=== PATIENT | female | born 1935 | race Two or more races ===

== ENCOUNTER 2016-05-30 11:08 | Inpatient (IN) | payer MEDICARE, MEDICAID ==
[2016-05-30] MEDS ORDERED: ceFAZolin 1 GM in Sodium Chloride 0.9% 50 ML IV ONE (11:38)
--- NOTE | 2016-05-30 11:43 | ED Physician Chart ---
Chief Complaint/HPI - Patient Information Date Seen:: 05/30/16 Time Seen:: 11:38 Chief Complaint:: l face rash History of Present Illness:: pt has had redness and swelling at left side of face for some time. no fever. no KU. pt distraught by of her 2 sons in past few months since 02/07. she was to an etohic in past but denies substance hx for self. Allergies:: Allergies Allergy/AdvReac Type Severity Reaction Status Date / Time No Known Allergies Allergy Verified 05/30/16 11:16 Vitals:: Vital Signs - 8 hr 05/30/16 11:08 Temp 99.5 F HR 74 RR 16 BP 96/70 O2 Sat % 95 Historian:: Patient Review of Systems - Review of Systems General/Constitutional: No fever, No chills, No weight loss, No weakness, No diaphoresis, No edema, No loss of appetite Skin: No skin lesions, No rash, No bruising Head: No headache, No light-headedness Eyes: No loss of vision, No pain, No diplopia ENT: No earache, No nasal drainage, No sore throat, No tinnitus Neck: No neck pain, No swelling, No thyromegaly, No stiffness, No mass noted Cardio Vascular: No chest pain, No palpitations, No PND, No orthopnea, No edema Pulmonary: No SOB, No cough, No sputum, No wheezing GI: No nausea, No vomiting, No diarrhea, No pain, No melena, No hematochezia, No constipation, No hematemesis G/U: No dysuria, No frequency, No hematuria Musculoskeletal: No bone or joint pain, No back pain, No muscle pain Endocrine: No polyuria, No polydipsia Psychiatric: No prior psych history, No depression, No anxiety, No suicidal ideation Hematopoietic: No bruising, No lymphadenopathy Allergic/Immuno: No urticaria, No angioedema Neurological: No syncope, No focal symptoms, No weakness, No paresthesia, No headache, No seizure, No dizziness, No confusion, No vertigo Past Medical History - Past Medical History Past Medical History: HTN, Dyslipidemia, PUD/GERD Social History: Care Facility Psychiatricy History: Depression, Other (gen anxiety do,) Family Medical History - Family Member Mother History Unknown: Yes Physical Exam - Physical Examination General/Constitutional: Awake, Well-developed, well-nourished, Alert, No distress, GCS 15, Non-toxic appearing, Ambulatory Other Gen/Cons comments:: morbid obese w signs of depression related to recent events. not very helpful w history or cooperative for PE. left face is mildly red and slt warm. no tndr to touch. small scab behind left ear and also by lat l eyebrow. Head: Atraumatic Eyes: Lids, conjuctiva normal, PERRL, EOMI Skin: Nl inspection, No skin lesions, No ecchymosis, Well hydrated, No lymphadenopathy Other Skin comments:: left face is mildly red and slt warm. no tndr to touch. small scab behind left ear and also by lat l eyebrow. ENMT: External ears, nose nl, Nasal exam nl, Lips, teeth, gums nl Neck: Nontender, Full ROM w/o pain, No JVD, No nuchal rigidity, No bruit, No mass, No stridor Respiratory: Nl effort/Exclusion, Clear to Auscultation, No Wheeze/Rhonchi/Rales Cardio Vascular: RRR, No murmur, gallop, rubs, NL S1 S2 GI: No tenderness/rebounding/guarding, No organomegaly, No hernia, Normal BS's, Nondistended, No mass/bruits, No McBurney tenderness : No CVA tenderness Extremities: No tenderness or effusion, Full ROM, normal strength in all extremities, No edema, Normal digits & nails Neuro/Psych: Alert/oriented, DTR's symmetric, Normal sensory exam, Normal motor strength, Judgement/insight normal, Mood normal, Normal gait, No focal deficits Misc: normal gait, Normal back, No paraspinal tenderness Labs/Radiology/EKG Results - Lab Results Results: Laboratory Tests 05/30/16 05/30/16 05/30/16 12:00 12:00 12:00 WBC 13.4 H RBC 3.46 L Hgb 9.6 L Hct 29.5 L MCV 85.2 MCH 27.8 MCHC Differential 32.7 RDW 13.3 Plt Count 207 MPV 9.3 Neutrophils % 80.2 H Lymphocytes % 11.5 L Monocytes % 5.8 Eosinophils % 2.2 Basophils % 0.3 ESR 99 H Sodium 133 L Potassium 4.1 Chloride 95 L Carbon Dioxide 34.0 H Anion Gap 8.1 BUN 11 Creatinine 0.5 L Est GFR ( Amer) TNP Est GFR (Non-Af Amer) TNP BUN/Creatinine Ratio 22.0 Glucose 104 Whole Bld Lactic Acid 0.83 Calcium 9.0 Total Bilirubin 0.3 AST 10 L ALT 4 L Alkaline Phosphatase 92 Total Protein 6.3 Albumin 3.1 L Globulin 3.2 Albumin/Globulin Ratio 1.0 - Radiology Results Results: ct head nad ct face - swelling/edema and pos reactive nodes at left face. no abscess. ED Septic Shock - . Is Septic Shock (SBP<90, OR Lactate>4 mmol\L) present?: No - <6hrs of presentation: Vital Signs: Vital Signs - 8 hr 05/30/16 11:08 Temp 99.5 F HR 74 RR 16 BP 96/70 O2 Sat % 95 Reassessment (Disposition) - Reassessment Reassessment:: re-eval pt stable at 2;15pm. bing tipton who is admitting for abx and observation and ?steroids prn Reassessment Condition:: Unchanged - Diagnosis Diagnosis:: left facial redness ( cellulitis vs allergic rxn ) - Aftercare/Follow up Instructions Aftercare/Follow-Up Instructions:: Counseled pt regarding lab results/diagnosis & need follow up - Patient Disposition Admitted to:: Med/Surg Condition at Disposition:: Unchanged
[2016-05-30 12:13] LABS: % BASOPHILS 0.3 % (0.0-2.0); % EOSINOPHILS 2.2 % (0.0-5.0); % LYMPHOCYTES 11.5 % (20.0-50.0); % MONOCYTES 5.8 % (2.0-10.0); % NEUTROPHILS 80.2 % (40.0-80.0); HEMATOCRIT 29.5 % (35.0-45.0); HEMOGLOBIN 9.6 gm/dL (11.7-16.1); MEAN CELL VOLUME 85.2 fl (81-100); MEAN CORPUSCULAR HEMOGLOBIN 27.8 pg (27.0-31.0); MEAN CORPUSCULAR HGB CONC 32.7 pg (28.0-36.0); MEAN PLATELET VOLUME 9.3 fl; NEUTROPHILE ABSOLUTE 10.8 Th/cmm (1.8-8.0); PLATELET COUNT 207 Th/cmm (150-400); RED BLOOD COUNT 3.46 Mil/cmm (3.80-5.20); RED CELL DISTRIBUTION WIDTH 13.3 % (11.5-20.0)
[2016-05-30 12:23] LABS: WHITE BLOOD COUNT 13.4 Th/cmm (4.8-10.8)
[2016-05-30 12:31] LABS: ALKALINE PHOSPHATASE 92 U/L (34-104); ANION GAP 8.1 (7.0-16.0); BILIRUBIN,TOTAL 0.3 mg/dL (0.3-1.0); BUN - UREA NITROGEN 11 mg/dL (7-25); CHLORIDE 95 mEq/L (98-107); CREATININE - SERUM 0.5 mg/dL (0.6-1.2); GLUCOSE 104 mg/dL (70-105); POTASSIUM SERUM 4.1 mEq/L (3.5-5.1); SGOT 10 U/L (13-39); SGPT/ALT 4 U/L (7-52); SODIUM SERUM 133 mEq/L (136-145)
--- NOTE | 2016-05-30 13:31 | Diagnostic Imaging Report ---
Head CT without intravenous contrast Indication: Left facial redness Comparison: CT facial bones the same day Technique: Axial images were obtained from the vertex to the skull base without IV contrast. Coronal reconstructions were made. Total DLP: 792, CTDI40.5 FINDINGS: Images of the brain obtained without contrast demonstrate no evidence of an acute hemorrhage. Mild atrophy is noted. The castillo-white matter differentiation is preserved. The ventricles and basal cisterns are patent. No mass effect or midline shift. No evidence of skull fracture or focal soft tissue swelling. There is mucosal thickening of the paranasal sinuses. IMPRESSION: No acute intracranial abnormality. Mild atrophy.
--- NOTE | 2016-05-30 13:57 | Diagnostic Imaging Report ---
CT facial bones without IV contrast HISTORY: Left-sided facial redness and swelling COMPARISON: CT head without IV contrast Technique: Axial images of the facial bones were obtained without IV contrast. Reconstructions were made. total DLP: 7011, CTDI34.5 Findings: There is mucosal thickening of the paranasal sinuses. There are inflammatory changes and subcutaneous edema with few borderline prominent lymph nodes seen along the left zygomatic and left temporal region. No drainable fluid collection identified. Degenerative changes of the cervical spine and bilateral TMJ joints are noted. There may have been previous nasal fractures. The globes and orbital floors are intact. IMPRESSION: Diffuse inflammatory changes surrounding the left facial region with subcutaneous edema. Please correlate clinically for possible facial cellulitis. No evidence of a drainable fluid collection. Borderline prominent left facial lymph nodes, nonspecific and possibly reactive. Questionable previous age indeterminate nasal fractures.
[2016-05-30 16:28] VITALS: BP 96/70
[2016-05-30] MEDS ORDERED: OXYCODONE 10 MG PO PRN (18:22)
[2016-05-30] MEDS ORDERED: Pneumococcal Vaccine 0.5 mL Vial IM ONE (19:59)
[2016-05-30] MEDS ORDERED: Non-Formulary Item 1 EA (Atorvastatin Calcium [Lipitor] 20 MG) PO SCH (21:00)
[2016-05-30] MEDS: cefTRIAXone 1 GM in Sodium Chloride 0.9% 50 ML IV SCH (21:16)
--- NOTE | 2016-05-30 21:36 | Admit Criteria Form ---
Admit Criteria Forms - Admit Criteria Diagnosis: CELLULITIS Clinical Indications for Admission to Inpatient Care (Place 'X' for any and all applicable criteria): Admission is indicated for ANY ONE of the following(1)(2)(3)(4)(5): [ ]I. Limb-threatening infection [ ]II. High-risk comorbid condition as indicated by ANY ONE of the following: [ ]a) Uncontrolled diabetes (eg, HbA1c greater than 10% (0.1)) [ ]b) Cirrhosis [ ]c) Neutropenia [ ]d) Asplenia [ ]e) Immunosuppression [ ]f) Symptomatic heart failure [ ]III. Failure of outpatient therapy as indicated by ALL of the following: [ ]a) Progression or no improvement after adequate trial (minimum of 48 hours, with longer period for stable lower extremity infection) [ ]b) Adequate antibiotic regimen as indicated by use of ANY ONE of the following: [ ]i) First-generation cephalosporin (e.g., cephalexin) [ ]ii) Antistaphylococcal penicillin (e.g., dicloxacillin) [ ]iii) Penicillin-allergic patient regimen (clindamycin, extended-spectrum fluoroquinolone, or doxycycline) [ ]iv) Resistant organism (eg, methicillin-resistant Staphylococcus aureus) regimen (6) [ ]c) Outpatient intravenous therapy regimen is not appropriate due to ANY ONE of the following. (7)(8)(9)(10): [ ]i) It was tried and was not successful (eg, progression of infection). [ ]ii) It is not available or cannot be arranged in a clinically appropriate time frame (e.g., the next day). [ ]iii) Clinical presentation (eg, acuity of infection, rapidity of progression, confirmed or suspected bacteremia) is judged to require ALL of the following: [ ]1) Immediate initiation of intravenous therapy ( eg, cannot wait for next day) [ ]2) Intensity of patient monitoring and observation (eg, vital sign measurement, checks for infection progression) that cannot be provided at other than inpatient level of care [ ]IV. Mental status changes [ ]V. Bacteremia [ ]. Hemodynamic instability [ ]VII. Suspected necrotizing soft tissue infection (e.g., gas in tissue)(11)( 12) [ ]VIII. Orbital infection (13)(14) [ ]IX. Associated surgical procedure (e.g., abscess drainage, debridement) not amenable to outpatient, emergency department, or observation care [ ]X. Cutaneous gangrene [ ]XI. High fever (temperature greater than 39.5 degrees C (103.1 degrees F) (oral)) not responsive to outpatient, emergency department, or observation care therapy [X]XIII. Inpatient admission required rather than observation care (Also use Cellulitis: Observation Care as appropriate) because of ANY ONE of the following : [ ]a) Periorbital or perineal infection that is severe or worsening [ ]b) Severe pain requiring acute inpatient management [ ]c) IV fluid to replace significant ongoing (e.g., for over 24 hours) losses (greater than 3L/m2 per day) [ ]d) Compartment syndrome monitoring (17) [ ]e) Strict or protective (eg, laminar flow) isolation [ ]f) Urgent debridement or skin grafting [ ]g) Bone or joint debridement [ ]h) Immediate inpatient surgery [X]i) Other condition, treatment or monitoring requiring inpatient admission Extended stay beyond goal length of stay may be needed for (1)(18): [ ]a) Necrotizing soft tissue infection or fasciitis [ ]b) Gram-negative infection [ ]c) Methicillin-resistant Staphylococcal aureus (MRSA) infection [ ]d) Peripheral venous insufficiency with cellulitis [ ]e) Extensive edema [ ]f) Sepsis or continued Hemodynamic instability [ ]g) Continued high fever or mental status change [ ]h) Bacteremia [ ]i) Active serious comorbid conditions ( eg, heart failure, renal insufficiency) The original [facility] [employer] content created by [facility] [employer] has been revised. The portions of the content which have been revised are identified through the use of italic text or in bold, and [facility] has neither reviewed nor approved the modified material. All other unmodified content is copyright [facility] Please see references footnoted in the original [facility] edition 2016 Admit Criteria Met?: Yes
[2016-05-30] MEDS: Albuterol/Ipratropium Neb 3 ML AERS HHN SCH (23:39)
[2016-05-31] MEDS: Albuterol/Ipratropium Neb 3 ML AERS HHN SCH ×6 (03:20→23:25)
[2016-05-31 06:07] LABS: % BASOPHILS 0.3 % (0.0-2.0); % EOSINOPHILS 0.1 % (0.0-5.0); % LYMPHOCYTES 12.6 % (20.0-50.0); % MONOCYTES 3.8 % (2.0-10.0); % NEUTROPHILS 83.2 % (40.0-80.0); HEMATOCRIT 29.5 % (35.0-45.0); HEMOGLOBIN 9.7 gm/dL (11.7-16.1); MEAN CELL VOLUME 84.8 fl (81-100); MEAN PLATELET VOLUME 9.9 fl; NEUTROPHILE ABSOLUTE 7.8 Th/cmm (1.8-8.0); PLATELET COUNT 209 Th/cmm (150-400); RED BLOOD COUNT 3.48 Mil/cmm (3.80-5.20); RED CELL DISTRIBUTION WIDTH 13.2 % (11.5-20.0)
[2016-05-31 06:14] LABS: WHITE BLOOD COUNT 9.4 Th/cmm (4.8-10.8)
[2016-05-31 06:50] LABS: ALKALINE PHOSPHATASE 87 U/L (34-104); ANION GAP 8.1 (7.0-16.0); BILIRUBIN,TOTAL 0.2 mg/dL (0.3-1.0); BUN - UREA NITROGEN 15 mg/dL (7-25); BUN/CREATININE RATIO 37.5; CARBON DIOXIDE 34.8 mEq/L (21.0-31.0); CHLORIDE 98 mEq/L (98-107); CREATININE - SERUM 0.4 mg/dL (0.6-1.2); GLUCOSE 137 mg/dL (70-105); POTASSIUM SERUM 3.9 mEq/L (3.5-5.1); SGOT 8 U/L (13-39); SGPT/ALT 5 U/L (7-52); SODIUM SERUM 137 mEq/L (136-145)
[2016-05-31] MEDS ORDERED: FAMOTIDINE 40 MG PO SCH (09:00)
--- NOTE | 2016-05-31 09:29 | General Progress Note ---
Subjective - Review of Systems Service Date: 05/31/16 Subjective: I am suffering Objective - Results Result Diagrams: 05/31/16 05:15 05/31/16 05:15 Recent Labs: Laboratory Last Values WBC 9.4 Th/cmm (4.8-10.8) D 05/31/16 05:15 RBC 3.48 Mil/cmm (3.80-5.20) L 05/31/16 05:15 Hgb 9.7 gm/dL (11.7-16.1) L 05/31/16 05:15 Hct 29.5 % (35.0-45.0) L 05/31/16 05:15 MCV 84.8 fl (81-100) 05/31/16 05:15 MCH 28.0 pg (27.0-31.0) 05/31/16 05:15 MCHC Differential 33.0 pg (28.0-36.0) 05/31/16 05:15 RDW 13.2 % (11.5-20.0) 05/31/16 05:15 Plt Count 209 Th/cmm (150-400) 05/31/16 05:15 MPV 9.9 fl 05/31/16 05:15 Neutrophils % 83.2 % (40.0-80.0) H 05/31/16 05:15 Lymphocytes % 12.6 % (20.0-50.0) L 05/31/16 05:15 Monocytes % 3.8 % (2.0-10.0) 05/31/16 05:15 Eosinophils % 0.1 % (0.0-5.0) 05/31/16 05:15 Basophils % 0.3 % (0.0-2.0) 05/31/16 05:15 ESR 99 mm/hr (0-30) H 05/30/16 12:00 Sodium 137 mEq/L (136-145) 05/31/16 05:15 Potassium 3.9 mEq/L (3.5-5.1) 05/31/16 05:15 Chloride 98 mEq/L (98-107) 05/31/16 05:15 Carbon Dioxide 34.8 mEq/L (21.0-31.0) H 05/31/16 05:15 Anion Gap 8.1 (7.0-16.0) 05/31/16 05:15 BUN 15 mg/dL (7-25) 05/31/16 05:15 Creatinine 0.4 mg/dL (0.6-1.2) L 05/31/16 05:15 Est GFR ( Amer) TNP 05/31/16 05:15 Est GFR (Non-Af Amer) TNP 05/31/16 05:15 BUN/Creatinine Ratio 37.5 05/31/16 05:15 Glucose 137 mg/dL (70-105) H 05/31/16 05:15 Whole Bld Lactic Acid 0.83 mmol/L (0.60-1.99) 05/30/16 12:00 Calcium 9.0 mg/dL (8.6-10.3) 05/31/16 05:15 Total Bilirubin 0.2 mg/dL (0.3-1.0) L 05/31/16 05:15 AST 8 U/L (13-39) L 05/31/16 05:15 ALT 5 U/L (7-52) L 05/31/16 05:15 Alkaline Phosphatase 87 U/L (34-104) 05/31/16 05:15 Total Protein 6.1 gm/dL (6.0-8.3) 05/31/16 05:15 Albumin 3.0 gm/dL (3.7-5.3) L 05/31/16 05:15 Globulin 3.1 gm/dL 05/31/16 05:15 Albumin/Globulin Ratio 1.0 (1.0-1.8) 05/31/16 05:15 TSH 0.17 uIU/ml (0.34-5.60) L 05/31/16 05:15 - Physical Exam Vitals and I&O: Vital Signs Temp 97.8 F 05/31/16 04:00 Pulse 66 05/31/16 07:10 Resp 18 05/31/16 07:10 BP 101/62 05/31/16 00:00 Pulse Ox 96 05/31/16 07:10 Intake & Output 05/30/16 05/31/16 05/31/16 18:59 06:59 18:59 Intake Total 50 Balance 50 Intake: Intake, IV Amount 50 cefTRIAXone 1 gm In 50 Sodium Chloride 0.9% 50 ml @ 100 mls/hr IV Q24HR [facility] Rx#:[id number] Active Medications: Current Medications Acetaminophen (Tylenol) 650 mg PO Q8H [facility] Stop: 07/30/16 09:29 Acyclovir (Zovirax) 800 mg PO Q8HR [facility] Stop: 07/30/16 12:59 Albuterol/Ipratropium (Duoneb Neb) 3 ml HHN Q4HR [facility] Stop: 07/29/16 19:59 Last Admin: 05/31/16 07:10 Dose: 3 ml Aspirin (Aspirin Chewable) 81 mg PO DAILY [facility] Stop: 07/30/16 08:59 Bisacodyl (Dulcolax 10 Mg Supp) 10 mg RC DAILY PRN PRN Reason: no bm x3 days Stop: 07/29/16 18:21 Carvedilol (Coreg) 3.125 mg PO BID [facility] Stop: 07/30/16 08:59 Clotrimazole (Lotrimin 1% Cream) 1 appl TP DAILY [facility] Stop: 07/30/16 09:29 Docusate Sodium (Colace) 250 mg PO BID [facility] Stop: 07/30/16 08:59 Escitalopram Oxalate (Lexapro) 20 mg PO HS [facility] PRN Reason: Protocol Stop: 07/29/16 20:59 Fentanyl (Duragesic 75 Mcg/Hr Tdm Patch) 1 patch TD Q72HR [facility] PRN Reason: Protocol Stop: 07/30/16 18:29 Furosemide (Lasix) 20 mg PO BID [facility] Stop: 07/30/16 08:59 Gabapentin (Neurontin) 300 mg PO BID [facility] Stop: 07/30/16 08:59 Ceftriaxone Sodium 1 gm/ (Sodium Chloride) 50 mls @ 100 mls/hr IV Q24HR [facility] Stop: 07/29/16 18:29 Last Infusion: 05/30/16 21:46 Dose: Infused Lorazepam (Ativan) 0.5 mg PO BID PRN; Protocol PRN Reason: Anxiety Stop: 07/29/16 18:21 Miscellaneous (Atorvastatin Calcium [Lipitor]) 20 mg PO HS [facility] Stop: 07/29/16 20:59 Miscellaneous (Famotidine [Pepcid*]) 40 mg PO DAILY [facility] Stop: 07/30/16 08:59 Miscellaneous (Oxycodone Er [Oxycontin*]) 10 mg PO Q12H PRN PRN Reason: Severe Pain Zolpidem Tartrate (Ambien) 5 mg PO HS PRN PRN Reason: Insomnia Stop: 07/29/16 18:21 Last Admin: 05/30/16 21:31 Dose: 5 mg General: Alert, Oriented x3, No acute distress HEENT: Atraumatic Neck: Supple Cardiovascular: Regular rate Abdomen: Bowel sounds, Soft Extremities: Other (No edema) Neurological: Other (Non ambulatory) Skin: Other (There is some redness in left side of bed and some papulas) Psych/Mental Status: Mental status NL Assessment/Plan - Assessment Assessment: Patient is awake, alert, calm. Dx: Cellulitis, Morbid obesity, COPD, Bed bound , Depression. - Plan Plan: Patient in Ceftriaxone, acyclovir and diet low in Na. Will continue to monitor
[2016-05-31] MEDS: Aspirin 81mg Chewable Tab PO SCH (09:50)
--- NOTE | 2016-05-31 13:25 | History & Physical ---
CHIEF COMPLAINT: Redness of the left side of the face. HISTORY OF PRESENT ILLNESS: This is a case of an 80-year-old white female who I follow in the skilled nursing. I received a call from skilled nursing and stated that the patient had redness on the left side of the face, reason why I ordered to transfer the patient to Emergency Room for evaluation was given. During examination in ER, it was found elevated WBC, reason why the patient was admitted. PAST MEDICAL HISTORY: The patient has past medical history of hypertension, dyslipidemia, GERD, morbid obesity, not ambulatory and depression. FAMILY HISTORY: Unremarkable. ALLERGIES: No known allergies. PAST SURGICAL HISTORY: None. REVIEW OF SYSTEMS: LUNGS: The patient denies shortness of breath. HEART: The patient denies chest pain. ABDOMEN: Unremarkable. EXTREMITIES: The patient is not ambulatory. SKIN: The patient referred edema of the left side of the family. PHYSICAL EXAMINATION: GENERAL: Does reveals a fairly nourished and developed white female, awake, alert, in no acute distress with morbid obesity. LUNGS: Bilateral air entry. No wheezing or crackles. HEART: Regular rate and rhythm. ABDOMEN: Globular. Bowel sound is present. EXTREMITIES: No edema. The patient is not ambulatory. NEUROLOGICAL: The patient is awake, alert, ____ depressed. No neurological deficits at this moment. SKIN: There is redness of the left side of the face and some edema. IMPRESSION: 1. Cellulitis. 2. Morbid obesity. 3. Hypertension. 4. Dyslipidemia. 5. Gastroesophageal reflux disease. 6. Depression. PLAN: 1. The patient will be admitted in the medical surgical floor. 2. IV normal saline. 3. Ceftriaxone. 4. Continue with skilled nursing medications. 5. DIET: Low in sodium. 6. CBC, CMP at a.m. JOB# [id number]
[2016-05-31] MEDS ORDERED: fentaNYL 75 mcg/hr Tdm Patch TD SCH (18:30)
[2016-05-31] MEDS: cefTRIAXone 1 GM in Sodium Chloride 0.9% 50 ML IV SCH (19:45)
[2016-06-01] MEDS: Albuterol/Ipratropium Neb 3 ML AERS HHN SCH ×6 (03:30→23:08)
[2016-06-01] MEDS: Aspirin 81mg Chewable Tab PO SCH (08:39)
--- NOTE | 2016-06-01 08:47 | General Progress Note ---
Subjective - Review of Systems Service Date: 06/01/16 Subjective: I fell better Objective - Results Result Diagrams: 05/31/16 05:15 05/31/16 05:15 Recent Labs: Laboratory Last Values WBC 9.4 Th/cmm (4.8-10.8) D 05/31/16 05:15 RBC 3.48 Mil/cmm (3.80-5.20) L 05/31/16 05:15 Hgb 9.7 gm/dL (11.7-16.1) L 05/31/16 05:15 Hct 29.5 % (35.0-45.0) L 05/31/16 05:15 MCV 84.8 fl (81-100) 05/31/16 05:15 MCH 28.0 pg (27.0-31.0) 05/31/16 05:15 MCHC Differential 33.0 pg (28.0-36.0) 05/31/16 05:15 RDW 13.2 % (11.5-20.0) 05/31/16 05:15 Plt Count 209 Th/cmm (150-400) 05/31/16 05:15 MPV 9.9 fl 05/31/16 05:15 Neutrophils % 83.2 % (40.0-80.0) H 05/31/16 05:15 Lymphocytes % 12.6 % (20.0-50.0) L 05/31/16 05:15 Monocytes % 3.8 % (2.0-10.0) 05/31/16 05:15 Eosinophils % 0.1 % (0.0-5.0) 05/31/16 05:15 Basophils % 0.3 % (0.0-2.0) 05/31/16 05:15 ESR 99 mm/hr (0-30) H 05/30/16 12:00 Sodium 137 mEq/L (136-145) 05/31/16 05:15 Potassium 3.9 mEq/L (3.5-5.1) 05/31/16 05:15 Chloride 98 mEq/L (98-107) 05/31/16 05:15 Carbon Dioxide 34.8 mEq/L (21.0-31.0) H 05/31/16 05:15 Anion Gap 8.1 (7.0-16.0) 05/31/16 05:15 BUN 15 mg/dL (7-25) 05/31/16 05:15 Creatinine 0.4 mg/dL (0.6-1.2) L 05/31/16 05:15 Est GFR ( Amer) TNP 05/31/16 05:15 Est GFR (Non-Af Amer) TNP 05/31/16 05:15 BUN/Creatinine Ratio 37.5 05/31/16 05:15 Glucose 137 mg/dL (70-105) H 05/31/16 05:15 Whole Bld Lactic Acid 0.83 mmol/L (0.60-1.99) 05/30/16 12:00 Calcium 9.0 mg/dL (8.6-10.3) 05/31/16 05:15 Total Bilirubin 0.2 mg/dL (0.3-1.0) L 05/31/16 05:15 AST 8 U/L (13-39) L 05/31/16 05:15 ALT 5 U/L (7-52) L 05/31/16 05:15 Alkaline Phosphatase 87 U/L (34-104) 05/31/16 05:15 Total Protein 6.1 gm/dL (6.0-8.3) 05/31/16 05:15 Albumin 3.0 gm/dL (3.7-5.3) L 05/31/16 05:15 Globulin 3.1 gm/dL 05/31/16 05:15 Albumin/Globulin Ratio 1.0 (1.0-1.8) 05/31/16 05:15 TSH 0.17 uIU/ml (0.34-5.60) L 05/31/16 05:15 - Physical Exam Vitals and I&O: Vital Signs Temp 98.0 F 06/01/16 04:00 Pulse 80 06/01/16 08:39 Resp 20 06/01/16 04:00 BP 110/51 06/01/16 08:39 Pulse Ox 98 06/01/16 04:00 Intake & Output 05/31/16 06/01/16 06/01/16 18:59 06:59 18:59 Intake Total 500 240 Balance 500 240 Intake: Oral 500 240 Other: # Voids 2 3 # Bowel Movements 2 Active Medications: Current Medications Acetaminophen (Tylenol) 650 mg PO Q8H [facility] Stop: 07/30/16 09:29 Last Admin: 06/01/16 08:38 Dose: 650 mg Acyclovir (Zovirax) 800 mg PO Q8HR [facility] Stop: 07/30/16 12:59 Last Admin: 06/01/16 05:18 Dose: 800 mg Albuterol/Ipratropium (Duoneb Neb) 3 ml HHN Q4HR [facility] Stop: 07/29/16 19:59 Last Admin: 06/01/16 07:08 Dose: 3 ml Aspirin (Aspirin Chewable) 81 mg PO DAILY [facility] Stop: 07/30/16 08:59 Last Admin: 06/01/16 08:39 Dose: 81 mg Bisacodyl (Dulcolax 10 Mg Supp) 10 mg RC DAILY PRN PRN Reason: no bm x3 days Stop: 07/29/16 18:21 Carvedilol (Coreg) 3.125 mg PO BID [facility] Stop: 07/30/16 08:59 Last Admin: 06/01/16 08:39 Dose: 3.125 mg Clotrimazole (Lotrimin 1% Cream) 1 appl TP DAILY [facility] Stop: 07/30/16 09:29 Last Admin: 05/31/16 12:49 Dose: 1 appl Docusate Sodium (Colace) 250 mg PO BID [facility] Stop: 07/30/16 08:59 Last Admin: 06/01/16 08:39 Dose: 250 mg Escitalopram Oxalate (Lexapro) 20 mg PO HS [facility] PRN Reason: Protocol Stop: 07/29/16 20:59 Last Admin: 05/31/16 20:36 Dose: 20 mg Fentanyl (Duragesic 75 Mcg/Hr Tdm Patch) 1 patch TD Q72HR [facility] PRN Reason: Protocol Stop: 07/30/16 18:29 Last Admin: 05/31/16 17:59 Dose: 1 patch Furosemide (Lasix) 20 mg PO BID [facility] Stop: 07/30/16 08:59 Last Admin: 06/01/16 08:38 Dose: 20 mg Gabapentin (Neurontin) 300 mg PO BID [facility] Stop: 07/30/16 08:59 Last Admin: 06/01/16 08:39 Dose: 300 mg Ceftriaxone Sodium 1 gm/ (Sodium Chloride) 50 mls @ 100 mls/hr IV Q24HR [facility] Stop: 07/29/16 18:29 Last Admin: 05/31/16 19:45 Dose: 100 mls/hr Lorazepam (Ativan) 0.5 mg PO BID PRN; Protocol PRN Reason: Anxiety Stop: 07/29/16 18:21 Last Admin: 05/31/16 22:47 Dose: 0.5 mg Miscellaneous (Atorvastatin Calcium [Lipitor]) 20 mg PO HS [facility] Stop: 07/29/16 20:59 Miscellaneous (Famotidine [Pepcid*]) 40 mg PO DAILY [facility] Stop: 07/30/16 08:59 Miscellaneous (Oxycodone Er [Oxycontin*]) 10 mg PO Q12H PRN PRN Reason: Severe Pain Zolpidem Tartrate (Ambien) 5 mg PO HS PRN PRN Reason: Insomnia Stop: 07/29/16 18:21 Last Admin: 05/31/16 20:36 Dose: 5 mg General: Alert, No acute distress HEENT: Atraumatic Neck: Supple Cardiovascular: Regular rate Lungs: Clear to auscultation Abdomen: Bowel sounds, Soft Extremities: Other (No edema) Neurological: Other (Non ambulatory) Skin: Other (Redness of face improving) Psych/Mental Status: Other (Confused) Assessment/Plan - Assessment Assessment: Patient is awake, alert, calm. Dx: Cellulitis, Morbid obesity, COPD, Bed bound , Depression. - Plan Plan: Patient in Ceftriaxone, acyclovir and diet low in Na. Will continue to monitor.
[2016-06-01] MEDS: cefTRIAXone 1 GM in Sodium Chloride 0.9% 50 ML IV SCH (17:44)
[2016-06-02] MEDS: Albuterol/Ipratropium Neb 3 ML AERS HHN SCH ×3 (04:12→12:29)
[2016-06-02 06:50] LABS: % BASOPHILS 0.7 % (0.0-2.0); % EOSINOPHILS 6.2 % (0.0-5.0); % LYMPHOCYTES 27.6 % (20.0-50.0); % MONOCYTES 8.3 % (2.0-10.0); % NEUTROPHILS 57.2 % (40.0-80.0); HEMATOCRIT 29.3 % (35.0-45.0); HEMOGLOBIN 9.4 gm/dL (11.7-16.1); MEAN CELL VOLUME 85.9 fl (81-100); MEAN CORPUSCULAR HEMOGLOBIN 27.6 pg (27.0-31.0); MEAN CORPUSCULAR HGB CONC 32.2 pg (28.0-36.0); MEAN PLATELET VOLUME 8.9 fl; NEUTROPHILE ABSOLUTE 5.5 Th/cmm (1.8-8.0); PLATELET COUNT 233 Th/cmm (150-400); RED BLOOD COUNT 3.41 Mil/cmm (3.80-5.20); RED CELL DISTRIBUTION WIDTH 13.4 % (11.5-20.0); WHITE BLOOD COUNT 9.6 Th/cmm (4.8-10.8)
[2016-06-02 07:08] LABS: ALKALINE PHOSPHATASE 77 U/L (34-104); ANION GAP 4.1 (7.0-16.0); BILIRUBIN,TOTAL 0.2 mg/dL (0.3-1.0); BUN - UREA NITROGEN 11 mg/dL (7-25); BUN/CREATININE RATIO 27.5; CALCIUM SERUM 8.7 mg/dL (8.6-10.3); CARBON DIOXIDE 38.7 mEq/L (21.0-31.0); CHLORIDE 100 mEq/L (98-107); CREATININE - SERUM 0.4 mg/dL (0.6-1.2); GLUCOSE 94 mg/dL (70-105); POTASSIUM SERUM 3.8 mEq/L (3.5-5.1); SGOT 10 U/L (13-39); SGPT/ALT 4 U/L (7-52); SODIUM SERUM 139 mEq/L (136-145)
[2016-06-02] MEDS: Aspirin 81mg Chewable Tab PO SCH (08:52)
--- NOTE | 2016-06-22 23:01 | Discharge Summary ---
CHIEF COMPLAINT: Redness of the left side of the face. HISTORY OF PRESENT ILLNESS: This is the case of an 80-year-old white female, who was sent from [facility] secondary to the patient had redness in the left side of face. She was sent to ER for evaluation and treatment. Diagnosis of cellulitis was done, reason why she was admitted. HOSPITAL COURSE AND TREATMENT: Then this patient was admitted to the Med-Surg. She was started on IV normal saline, ceftriaxone IV. She was continuing [facility] medications. She received a diet low in sodium and laboratory work was done. With this treatment and after 3 days in the hospital, it was considered that the patient received the maximum benefit of hospitalization and she could be sent back to the [facility]. At the moment of the discharge, the patient was awake, alert, in no acute distress with no redness or edema in the face. DISPOSITION: The patient is sent back to the [facility] to continue treatment with PCP. DIAGNOSES: 1. Cellulitis. 2. Morbid obesity. 3. Hypertension. 4. Dyslipidemia. 5. Gastroesophageal reflux disease. 6. Depression. 7. Bedbound. JOB# [id number]
== END 2016-06-02 12:40 | DRG 603 ==
LOC: ER 11:08 → INTOOBSV 14:40 → OBSVTOIN 14:40 → MSI 14:40
PROVIDERS: ADMIT General Practice; ATTEND General Practice
DX: L03.211 Cellulitis of face (principal); Z68.42 Body mass index [BMI] 45.0-49.9, adult; I10 Essential (primary) hypertension; E66.01 Morbid (severe) obesity due to excess calories; K21.9 Gastro-esophageal reflux disease without esophagitis; E78.5 Hyperlipidemia, unspecified; F32.9 Major depressive disorder, single episode, unspecified; F41.1 Generalized anxiety disorder; Z74.01 Bed confinement status
CPT/HCPCS: 36415-UA; 70450-TC; 70486-TC; 80053-TC; 83605; 84443-TC; 85025-TC; 85652-TC; 94640; 94760; 96375; J0690; J0696; J1200; J2930; Z7610

== ENCOUNTER 2017-08-23 12:48 | Inpatient (IN) | payer MEDICARE, MEDICAID ==
--- NOTE | 2017-08-23 14:15 | ED Physician Chart ---
ED Chief Complaint/HPI - Patient Information Date Seen:: 08/23/17 Time Seen:: 13:35 Chief Complaint:: Cough History of Present Illness:: onset x 3 days of cough, fever, dyspnea, and congestion; no report of trauma, H/ As, S/T, neck pain, C/P, Abd. Pain, A/N/V/D/C, chills, or urinary s/s; Allergies:: Allergies Allergy/AdvReac Type Severity Reaction Status Date / Time No Known Allergies Allergy Verified 08/23/17 13:42 Vitals:: Vital Signs - 8 hr 08/23/17 13:36 Temp 98.2 F HR 96 RR 18 BP 139/66 O2 Sat % 94 Historian:: Patient, EMS Review:: Nurse's Note Reviewed, Old Chart Reviewed, EMS run form Reviewed ED Review of Systems - Review of Systems General/Constitutional: Fever, No chills, No weight loss, Weakness, No diaphoresis, No edema, No loss of appetite Skin: No skin lesions, No rash, No bruising Head: No headache, No light-headedness Eyes: No loss of vision, No pain, No diplopia ENT: No earache, Nasal drainage, No sore throat, No tinnitus Neck: No neck pain, No swelling, No thyromegaly, No stiffness, No mass noted Cardio Vascular: No chest pain, No palpitations, No PND, No orthopnea, No edema Pulmonary: SOB, Cough, No sputum, Wheezing GI: No nausea, No vomiting, No diarrhea, No pain, No melena, No hematochezia, No constipation, No hematemesis G/U: No dysuria, No frequency, No hematuria, No nacturia [place] Head: No vaginal discharge, No abnormal vaginal bleed, No contraction Musculoskeletal: No bone or joint pain, No back pain, No muscle pain Endocrine: No polyuria, No polydipsia Psychiatric: No prior psych history, No depression, No anxiety, No suicidal ideation, No homicidal ideation, No auditory hallucination, No visual hallucination Hematopoietic: No bruising, No lymphadenopathy Allergic/Immuno: No urticaria, No angioedema Neurological: No syncope, No focal symptoms, No weakness, No paresthesia, No headache, No seizure, No dizziness, No confusion, No vertigo ED Past Medical History - Past Medical History Obtainable: Yes Past Medical History: HTN, CAD, Asthma/COPD, Dyslipidemia, PUD/GERD Family History: HTN Social History: Non Smoker, No Alcohol, No Drug Use, , Care Facility Surgical History: None Psychiatricy History: None Medication: Reviewed Family Medical History - Family Member Mother History Unknown: Yes Living Status: Hx Family Cancer: No Hx Family Coronary Artery Disease: Yes Hx Family Congestive Heart Failure: Yes Hx Family Hypertension: Yes Hx Family Stroke: Yes Hx Family Diabetes: No Hx Family Seizures: No Hx Family Dementia: Yes Hx Family AIDS: No Hx Family HIV: No Hx Family COPD: No Hx Family Hepatitis: No Hx Family Psychiatric Problems: No Hx Family Tuberculosis: No Father History Unknown: Yes Living Status: Hx Family Cancer: Yes Hx Family Coronary Artery Disease: No Hx Family Congestive Heart Failure: No Hx Family Hypertension: No Hx Family Stroke: No Hx Family Diabetes: No Hx Family Seizures: No Hx Family Dementia: No Hx Family AIDS: No Hx Family HIV: No Hx Family COPD: No Hx Family Hepatitis: No Hx Family Psychiatric Problems: No Hx Family Tuberculosis: No ED Physical Exam - Physical Examination General/Constitutional: Awake, Well-developed, well-nourished, Alert, No distress, GCS 15, Non-toxic appearing, Ambulatory Head: Atraumatic Eyes: Lids, conjuctiva normal, PERRL, EOMI Skin: Nl inspection, No rash, No skin lesions, No ecchymosis, Well hydrated, No lymphadenopathy ENMT: External ears, nose nl, TM canals nl, Nasal exam nl, Lips, teeth, gums nl , Oropharynx nl, Tonsils nl Neck: Nontender, Full ROM w/o pain, No JVD, No nuchal rigidity, No bruit, No mass, No stridor Respiratory: Nl effort/Exclusion Other Respiratory comments:: Lungs: + Rales, Rhonchi, and Wheezes Cardio Vascular: RRR, No murmur, gallop, rubs, NL S1 S2, Carotid/Femoral/Distal pulses equal bilaterally GI: No tenderness/rebounding/guarding, No organomegaly, No hernia, Normal BS's, Nondistended, No mass/bruits, No McBurney tenderness : No CVA tenderness Extremities: No tenderness or effusion, Full ROM, normal strength in all extremities, No edema, Normal digits & nails Neuro/Psych: Alert/oriented, DTR's symmetric, Normal sensory exam, Normal motor strength, Judgement/insight normal, Mood normal, Normal gait, No focal deficits Misc: Normal back, No paraspinal tenderness ED Labs/Radiology/EKG Results - Lab Results Comments:: H/H: 10.6/31.2; WBC: 13.5 - Radiology Results Comments:: CXR: + Infiltrate; COPD - EKG Interpretations EKG Time:: 13:58 Rate & Rhythm: 94; NSR Comments:: non-specific st-t changes ED Septic Shock - . Is Septic Shock (SBP<90, OR Lactate>4 mmol\L) present?: No - <6hrs of presentation: Vital Signs: Vital Signs - 8 hr 08/23/17 13:36 Temp 98.2 F HR 96 RR 18 BP 139/66 O2 Sat % 94 ED Reassessment (Disposition) - Reassessment Reassessment Condition:: Improved - Diagnosis Diagnosis:: Dx: Cough; Fever; Congestion; PNA; COPD; Sepsis; Leukocytosis; Anemia - Aftercare/Follow up Instructions Aftercare/Follow-Up Instructions:: Counseled pt regarding lab results/diagnosis & need follow up, Counseled pt & family regarding lab results/diagnosis & need follow up - Patient Disposition Discharge/Transfer:: Acute Care w/in this hosp Accepting Physician:: Dr. Sears Time Called:: 1500 Time Responded:: 15:00 Admitted to:: Med/Surg Spoke to:: Dr. Sears Admitting Medical Physician:: Dr. Sears Condition at Disposition:: Stable, Improved
[2017-08-23] MEDS ORDERED: Levofloxacin 500mg/100mL 500 MG/100 ML BAG IV ONE ×2 (14:20→14:33)
[2017-08-23 14:34] LABS: % BASOPHILS 0.4 % (0.0-2.0); % EOSINOPHILS 2.1 % (0.0-5.0); % LYMPHOCYTES 11.4 % (20.0-50.0); % MONOCYTES 4.6 % (2.0-10.0); % NEUTROPHILS 81.5 % (40.0-80.0); BASOPHILE ABSOLUTE 0.1 Th/cumm (0-0.2); EOSINOPHILE ABSOLUTE 0.3 Th/cmm (0.1-0.4); HEMATOCRIT 31.2 % (41.0-60); HEMOGLOBIN 10.6 gm/dL (12-16); LYMPHOCYTE ABSOLUTE 1.5 Th/cmm (1.5-3.0); MEAN CELL VOLUME 86.4 fl (81-100); MEAN CORPUSCULAR HEMOGLOBIN 29.2 pg (27.0-31.0); MEAN CORPUSCULAR HGB CONC 33.8 pg (28.0-36.0); MEAN PLATELET VOLUME 8.3 fl; MONOCYTE ABSOLUTE 0.6 Th/cmm (0.3-1.0); PLATELET COUNT 412 Th/cmm (150-400); RED BLOOD COUNT 3.61 Mil/cmm (3.80-5.20); RED CELL DISTRIBUTION WIDTH 13.6 % (11.5-20.0)
--- NOTE | 2017-08-23 14:36 | Diagnostic Imaging Report ---
CHEST X-RAY: AP view INDICATION: pain COMPARISON: None FINDINGS: Exam is limited due to positioning. Left basal density is noted. Increased interstitial lung markings are noted. Cardiomegaly is noted with atherosclerosis. Advanced degenerative changes of the left shoulder are noted. 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 Advanced degenerative changes of the spine are noted. IMPRESSION: Left basal density. This may be due to a small left effusion. Pneumonia of the left lung base cannot be excluded. Increased interstitial lung markings possibly due to mild congestive changes. Cardiomegaly and atherosclerosis. Advanced degenerative changes of the spine and left shoulder. Possible subluxed right shoulder arthroplasty. If indicated dedicated right shoulder x-rays may be obtained for further assessment.
[2017-08-23 14:40] LABS: WHITE BLOOD COUNT 13.5 Th/cmm (4.8-10.8)
[2017-08-23 14:54] LABS: INR 0.96 (0.5-1.4)
[2017-08-23] MEDS ORDERED: Albuterol/Ipratropium Neb 3 ML AERS HHN PRN (15:43)
[2017-08-23 15:54] LABS: ALBUMIN 3.4 gm/dL (3.7-5.3); ALKALINE PHOSPHATASE 148 U/L (34-104); ANION GAP 12.1 (7.0-16.0); BILIRUBIN,TOTAL 0.4 mg/dL (0.3-1.0); BUN - UREA NITROGEN 8 mg/dL (7-25); CALCIUM SERUM 9.4 mg/dL (8.6-10.3); CARBON DIOXIDE 30.5 mEq/L (21.0-31.0); CHLORIDE 96 mEq/L (98-107); CREATININE - SERUM 0.5 mg/dL (0.6-1.2); CREATININE KINASE 18 U/L (30-223); GLUCOSE 106 mg/dL (70-105); POTASSIUM SERUM 3.6 mEq/L (3.5-5.1); SGOT 13 U/L (13-39); SGPT/ALT 9 U/L (7-52); SODIUM SERUM 135 mEq/L (136-145); TOTAL PROTEIN,SERUM 6.9 gm/dL (6.0-8.3)
[2017-08-23] MEDS ORDERED: Albuterol/Ipratropium Neb 3 ML AERS HHN SCH (20:00)
[2017-08-23] MEDS ORDERED: Non-Formulary Item 1 EA (Atorvastatin Calcium [Lipitor] 20 MG) PO SCH (21:00)
[2017-08-23] MEDS ORDERED: Non-Formulary Item 1 EA (Melatonin [Melatonin] 6 MG) PO SCH (21:00)
[2017-08-23] MEDS: Azithromycin 500 MG in Sodium Chloride 0.9% 250 ML IV SCH (21:48)
[2017-08-23] MEDS ORDERED: Enoxaparin 40 mg/0.4 mL 0.4mL Syr SUBQ SCH (22:00)
[2017-08-23] MEDS: Enoxaparin 40 mg/0.4 mL 0.4mL Syr SUBQ SCH (23:36)
[2017-08-24] MEDS: Albuterol/Ipratropium Neb 3 ML AERS HHN SCH ×5 (07:26→22:19)
[2017-08-24 07:42] LABS: % BASOPHILS 0.9 % (0.0-2.0); % EOSINOPHILS 3.1 % (0.0-5.0); % LYMPHOCYTES 17.9 % (20.0-50.0); % MONOCYTES 7.7 % (2.0-10.0); % NEUTROPHILS 70.4 % (40.0-80.0); BASOPHILE ABSOLUTE 0.1 Th/cumm (0-0.2); EOSINOPHILE ABSOLUTE 0.3 Th/cmm (0.1-0.4); HEMATOCRIT 30.4 % (41.0-60); HEMOGLOBIN 10.1 gm/dL (12-16); MEAN CELL VOLUME 87.1 fl (81-100); MEAN CORPUSCULAR HEMOGLOBIN 28.8 pg (27.0-31.0); MEAN PLATELET VOLUME 8.3 fl; MONOCYTE ABSOLUTE 0.9 Th/cmm (0.3-1.0); NEUTROPHILE ABSOLUTE 7.9 Th/cmm (1.8-8.0); PLATELET COUNT 400 Th/cmm (150-400); RED BLOOD COUNT 3.49 Mil/cmm (3.80-5.20); RED CELL DISTRIBUTION WIDTH 13.4 % (11.5-20.0); WHITE BLOOD COUNT 11.2 Th/cmm (4.8-10.8)
[2017-08-24] MEDS ORDERED: Non-Formulary Item 1 EA (Cranberry Fruit Concentrate [Cranberry] 450 MG) PO SCH (09:00)
[2017-08-24] MEDS ORDERED: LACTOBACILLUS ACIDOPHILUS PO SCH (09:00)
[2017-08-24] MEDS ORDERED: Non-Formulary Item 1 EA (Olopatadine Hcl [Pataday] 1 DROP) EACH EYE SCH (09:00)
[2017-08-24] MEDS: Lactobacillus Rhamnosus GG 15 Billion CFU CAP.SPRINK PO SCH (10:03)
[2017-08-24] MEDS: Ferrous Sulfate 325 MG TAB PO SCH (10:04)
[2017-08-24] MEDS: Aspirin 81mg Chewable Tab PO SCH (10:04)
[2017-08-24] MEDS: Polyvinyl Alcohol Ophth Soln 15 mL Bottle EACH EYE SCH (10:05)
[2017-08-24] MEDS: D5-0.45NS w/20 mEq KCL 1,000 ML IV SCH (10:12)
--- NOTE | 2017-08-24 13:51 | History & Physical ---
ADMIT DATE: 08/23/2017 CHIEF COMPLAINT: Cough, shortness of breath for a few days' duration. HISTORY OF PRESENT ILLNESS: The patient is an 81-year-old female with long history of asthma, obesity, depression, chronic anxiety disorder, resident at [facility], transferred to the Emergency Room with cough, shortness of breath, evaluated by the ER physician. Initial workup sent for pneumonia. The patient admitted to the medical floor, started on antibiotic and breathing treatment. The patient denies any chest pain, any nausea, any vomiting. PAST MEDICAL HISTORY: Significant for asthma, chronic anxiety disorder, depression, chronic pain, degenerative joint disease, and hypertension. PAST SURGICAL HISTORY: No recent surgery. ALLERGIES: None. MEDICATIONS: Follow admission reconciliation. SOCIAL HISTORY: No smoking, no alcohol, no drug. FAMILY HISTORY: Noncontributory. REVIEW OF SYSTEMS: RENAL SYSTEM: No history of chronic renal disorder. CARDIOVASCULAR SYSTEM: No coronary artery disease. ENDOCRINE SYSTEM: No diabetes or thyroid problem. GASTROINTESTINAL SYSTEM: No upper or lower GI bleed. NEUROLOGICAL: She has history of depression, chronic anxiety disorder. PHYSICAL EXAMINATION: GENERAL: She is awake, alert, oriented. VITAL SIGNS: Temperature is 97.1, heart rate 91, blood pressure 124/76. HEENT: Normocephalic. Pupils reactive to light and accommodation. Sclerae clear. NECK: Supple. Negative for lymphadenopathy, JVD or bruit. CHEST: Entry of air bilaterally diminished associated with rhonchi. HEART: S1, S2 normal. No murmur or gallop rhythm. ABDOMEN: Soft, bowel sounds positive. EXTREMITIES: No edema. NEUROLOGICAL: She is awake, alert, oriented. No focal motor or sensory deficit. Cranial nerves 2-12 are intact. LABORATORY DATA: White blood cell 13.5, hemoglobin 10.6, hematocrit 31.2, platelet 412. Sodium 135, potassium 3.6, BUN 8, creatinine 0.5. ASSESSMENT: 1. Pneumonia. 2. Asthma. 3. Anemia. 4. Chronic anxiety disorder. PLAN: The patient admitted to the hospital under Dr. Sears's service, started on IV antibiotic, breathing treatment. Resume home medication and diet. CBC in a.m. The patient is a full code. JOB# [id number]
--- NOTE | 2017-08-24 15:34 | Internal Medicine Prog Note ---
Internal Medicine Subjective - Subjective Service Date: 08/24/17 Patient seen and examined:: without staff (SHE FEELS BETTER,LESS SOB.) Patient is:: awake, verbal, in bed, talking Per staff patient has:: no adverse event Internal Medicine Objective - Results Result Diagrams: 08/24/17 07:00 08/23/17 14:15 Recent Labs: Laboratory Last Values WBC 11.2 Th/cmm (4.8-10.8) H 08/24/17 07:00 RBC 3.49 Mil/cmm (3.80-5.20) L 08/24/17 07:00 Hgb 10.1 gm/dL (12-16) L 08/24/17 07:00 Hct 30.4 % (41.0-60) L 08/24/17 07:00 MCV 87.1 fl (81-100) 08/24/17 07:00 MCH 28.8 pg (27.0-31.0) 08/24/17 07:00 MCHC Differential 33.0 pg (28.0-36.0) 08/24/17 07:00 RDW 13.4 % (11.5-20.0) 08/24/17 07:00 Plt Count 400 Th/cmm (150-400) 08/24/17 07:00 MPV 8.3 fl 08/24/17 07:00 Neutrophils % 70.4 % (40.0-80.0) 08/24/17 07:00 Lymphocytes % 17.9 % (20.0-50.0) L 08/24/17 07:00 Monocytes % 7.7 % (2.0-10.0) 08/24/17 07:00 Eosinophils % 3.1 % (0.0-5.0) 08/24/17 07:00 Basophils % 0.9 % (0.0-2.0) 08/24/17 07:00 PT 10.0 SECONDS (9.5-11.5) 08/23/17 14:15 INR 0.96 (0.5-1.4) 08/23/17 14:15 PTT (Actin FS) 29.2 SECONDS (26.0-38.0) 08/23/17 14:15 Sodium 135 mEq/L (136-145) L 08/23/17 14:15 Potassium 3.6 mEq/L (3.5-5.1) 08/23/17 14:15 Chloride 96 mEq/L (98-107) L 08/23/17 14:15 Carbon Dioxide 30.5 mEq/L (21.0-31.0) 08/23/17 14:15 Anion Gap 12.1 (7.0-16.0) 08/23/17 14:15 BUN 8 mg/dL (7-25) 08/23/17 14:15 Creatinine 0.5 mg/dL (0.6-1.2) L 08/23/17 14:15 Est GFR ( Amer) TNP 08/23/17 14:15 Est GFR (Non-Af Amer) TNP 08/23/17 14:15 BUN/Creatinine Ratio 16.0 08/23/17 14:15 Glucose 106 mg/dL (70-105) H 08/23/17 14:15 Whole Bld Lactic Acid 1.06 mmol/L (0.60-1.99) 08/23/17 14:15 Calcium 9.4 mg/dL (8.6-10.3) 08/23/17 14:15 Total Bilirubin 0.4 mg/dL (0.3-1.0) 08/23/17 14:15 AST 13 U/L (13-39) 08/23/17 14:15 ALT 9 U/L (7-52) 08/23/17 14:15 Alkaline Phosphatase 148 U/L (34-104) H 08/23/17 14:15 Creatine Kinase 18 U/L (30-223) L 08/23/17 14:15 Troponin I 0.01 ng/mL (0.01-0.05) 08/23/17 14:15 Total Protein 6.9 gm/dL (6.0-8.3) 08/23/17 14:15 Albumin 3.4 gm/dL (3.7-5.3) L 08/23/17 14:15 Globulin 3.5 gm/dL 08/23/17 14:15 Albumin/Globulin Ratio 1.0 (1.0-1.8) 08/23/17 14:15 - Physical Exam Vitals and I&O: Vital Signs Temp 96.7 F 08/24/17 10:00 Pulse 85 08/24/17 15:21 Resp 18 08/24/17 15:21 BP 128/51 08/24/17 10:04 Pulse Ox 97 08/24/17 15:21 Intake & Output 08/23/17 08/24/17 08/24/17 18:59 06:59 18:59 Intake Total 200 Balance 200 Weight (lbs) 113.398 kg 113.398 kg Intake: Oral 200 Other: # Voids 1 Weight Source Estimated Bedscale Active Medications: Current Medications Acetaminophen (Tylenol) 650 mg PO Q6H PRN PRN Reason: mild pain Stop: 10/22/17 18:17 Last Admin: 08/24/17 13:18 Dose: 650 mg Acyclovir (Zovirax) 800 mg PO Q8HR [facility] Stop: 10/22/17 20:59 Last Admin: 08/24/17 13:19 Dose: 800 mg Albuterol/Ipratropium (Duoneb Neb) 3 ml HHN Q4HRT PRN PRN Reason: Shortness of Breath or Wheeze Stop: 10/22/17 15:42 Albuterol/Ipratropium (Duoneb Neb) 3 ml HHN Q4HRT [facility] Stop: 10/22/17 19:59 Last Admin: 08/24/17 15:15 Dose: 3 ml Artificial Tears (Artificial Tears Ophth Soln) 1 drop EACH EYE DAILY [facility] Stop: 10/23/17 08:59 Last Admin: 08/24/17 10:05 Dose: 1 drop Aspirin (Aspirin Chewable) 81 mg PO DAILY [facility] Stop: 10/23/17 08:59 Last Admin: 08/24/17 10:04 Dose: 81 mg Atorvastatin Calcium (Lipitor) 20 mg PO HS [facility] Stop: 10/23/17 20:59 Bisacodyl (Dulcolax 10 Mg Supp) 10 mg RC DAILY PRN PRN Reason: no bm x3 days Stop: 10/22/17 18:17 Carvedilol (Coreg) 3.125 mg PO BID [facility] Stop: 10/23/17 08:59 Last Admin: 08/24/17 10:04 Dose: 3.125 mg Clotrimazole (Lotrimin 1% Cream) 1 appl TP DAILY [facility] Stop: 10/23/17 08:59 Last Admin: 08/24/17 10:04 Dose: 1 appl Diphenhydramine HCl (Benadryl) 25 mg PO Q6H PRN PRN Reason: Itching Stop: 10/22/17 18:17 Docusate Sodium (Colace) 250 mg PO BID [facility] Stop: 10/23/17 08:59 Last Admin: 08/24/17 10:04 Dose: 250 mg Enoxaparin Sodium (Lovenox) 40 mg SUBQ Q24HR@2200 [facility]; Protocol Stop: 10/22/17 22:59 Last Admin: 08/23/17 23:36 Dose: 40 mg Escitalopram Oxalate (Lexapro) 20 mg PO HS [facility]; Protocol Stop: 10/22/17 20:59 Last Admin: 08/23/17 20:46 Dose: 20 mg Famotidine (Pepcid) 40 mg PO DAILY [facility] Stop: 10/23/17 08:59 Last Admin: 08/24/17 10:03 Dose: 40 mg Fentanyl (Duragesic 75 Mcg/Hr Tdm Patch) 1 patch TD Q72HR@0900 [facility]; Protocol Stop: 10/24/17 08:59 Ferrous Sulfate (Iron) 325 mg PO DAILY [facility] Stop: 10/23/17 08:59 Last Admin: 08/24/17 10:04 Dose: 325 mg Furosemide (Lasix) 20 mg PO BID [facility] Stop: 10/23/17 08:59 Last Admin: 08/24/17 10:03 Dose: 20 mg Potassium Chloride/Dextrose/Sod Cl (D5-0.45ns W/20 Meq Kcl) 1,000 mls @ 75 mls/ hr IV .[id number] [facility] Stop: 10/22/17 16:59 Last Admin: 08/24/17 10:12 Dose: 75 mls/hr Azithromycin 500 mg/ Sodium (Chloride) 250 mls @ 250 mls/hr IV Q24HR@2100 [facility] Stop: 10/22/17 20:59 Last Admin: 08/23/17 21:48 Dose: 250 mls/hr Ceftriaxone Sodium 1 gm/ (Dextrose) 50 mls @ 100 mls/hr IV Q24HR@2200 [facility] Stop: 10/22/17 21:59 Last Admin: 08/23/17 23:53 Dose: 100 mls/hr Lactobacillus Rhamnosus (Culturelle 15b) 1 each PO DAILY [facility] Stop: 10/23/17 08:59 Last Admin: 08/24/17 10:03 Dose: 1 each Lorazepam (Ativan) 0.5 mg PO BID PRN; Protocol PRN Reason: Anxiety Stop: 10/22/17 18:23 Last Admin: 08/23/17 20:46 Dose: 0.5 mg Miscellaneous (Olopatadine Hcl [Pataday]) 1 drop EACH EYE DAILY [facility] Stop: 10/23/17 08:59 Oxycodone HCl (Oxycontin) 10 mg PO Q12HR PRN PRN Reason: Pain (Severe) Stop: 10/23/17 22:59 Zolpidem Tartrate (Ambien) 10 mg PO HS [facility] Stop: 10/22/17 22:59 Last Admin: 08/23/17 22:10 Dose: 10 mg General: alert, obese HEENT: NC/AT, PERRLA, EOMI, anicteric sclerae, throat clear Neck: Supple, No JVD, No thyromegaly, +2 carotid pulse wo bruit, No LAD Lungs: ronchi Cardiovascular: RRR, Normal S1, Normal S2, without murmur Abdomen: soft, non-tender, non-distended Extremities: clear Neurological: no change Internal Medicine Assmt/Plan - Assessment Assessment: 1.PNEUMONIA. 2.DM. 3.HTN. 4.CHRONIC ANXIETY. - Plan Plan: CONTINUE ON CURRENT MEDICATION AND DIET.
[2017-08-24] MEDS: Atorvastatin Calcium 10 MG TAB PO SCH (22:21)
[2017-08-24] MEDS: Azithromycin 500 MG in Sodium Chloride 0.9% 250 ML IV SCH (22:22)
[2017-08-24] MEDS: Enoxaparin 40 mg/0.4 mL 0.4mL Syr SUBQ SCH (22:22)
[2017-08-25] MEDS: Albuterol/Ipratropium Neb 3 ML AERS HHN SCH ×6 (02:49→23:36)
[2017-08-25] MEDS: D5-0.45NS w/20 mEq KCL 1,000 ML IV SCH ×2 (09:42→22:08)
[2017-08-25] MEDS: Ferrous Sulfate 325 MG TAB PO SCH (09:43)
[2017-08-25] MEDS: Aspirin 81mg Chewable Tab PO SCH (09:44)
[2017-08-25] MEDS: fentaNYL 75 mcg/hr Tdm Patch TD SCH (09:46)
[2017-08-25] MEDS: Polyvinyl Alcohol Ophth Soln 15 mL Bottle EACH EYE SCH (09:47)
[2017-08-25 10:19] LABS: URINE MICROSCOPIC INDICATED? YES; URINE SOURCE MIDSTREAM
[2017-08-25 10:22] LABS: URINE BILIRUBIN NEGATIVE (NEGATIVE); URINE BLOOD SMALL (NEGATIVE); URINE GLUCOSE (UA) NEGATIVE (NEGATIVE); URINE KETONE NEGATIVE (NEGATIVE); URINE LEUKOCYTE ESTERASE SMALL (NEGATIVE); URINE NITRATE POSITIVE (NEGATIVE); URINE PH 6.5 (4.6 - 8.0); URINE PROTEIN NEGATIVE (NEGATIVE); URINE UROBILINOGEN 0.2 E.U./dL (0.2 - 1.0)
[2017-08-25 10:27] LABS: URINE CLARITY SLIGHTLY HAZY (CLEAR); URINE COLOR YELLOW
[2017-08-25 10:30] LABS: URINE BACTERIA MODERATE /hpf (NONE SEEN); URINE EPITHELIAL CELLS MANY /lpf (FEW)
--- NOTE | 2017-08-25 17:28 | Internal Medicine Prog Note ---
Internal Medicine Subjective - Subjective Service Date: 08/25/17 Patient seen and examined:: with staff Patient is:: awake, verbal, in bed, talking Per staff patient has:: no adverse event Internal Medicine Objective - Results Result Diagrams: 08/24/17 07:00 08/23/17 14:15 Recent Labs: Laboratory Last Values WBC 11.2 Th/cmm (4.8-10.8) H 08/24/17 07:00 RBC 3.49 Mil/cmm (3.80-5.20) L 08/24/17 07:00 Hgb 10.1 gm/dL (12-16) L 08/24/17 07:00 Hct 30.4 % (41.0-60) L 08/24/17 07:00 MCV 87.1 fl (81-100) 08/24/17 07:00 MCH 28.8 pg (27.0-31.0) 08/24/17 07:00 MCHC Differential 33.0 pg (28.0-36.0) 08/24/17 07:00 RDW 13.4 % (11.5-20.0) 08/24/17 07:00 Plt Count 400 Th/cmm (150-400) 08/24/17 07:00 MPV 8.3 fl 08/24/17 07:00 Neutrophils % 70.4 % (40.0-80.0) 08/24/17 07:00 Lymphocytes % 17.9 % (20.0-50.0) L 08/24/17 07:00 Monocytes % 7.7 % (2.0-10.0) 08/24/17 07:00 Eosinophils % 3.1 % (0.0-5.0) 08/24/17 07:00 Basophils % 0.9 % (0.0-2.0) 08/24/17 07:00 PT 10.0 SECONDS (9.5-11.5) 08/23/17 14:15 INR 0.96 (0.5-1.4) 08/23/17 14:15 PTT (Actin FS) 29.2 SECONDS (26.0-38.0) 08/23/17 14:15 Sodium 135 mEq/L (136-145) L 08/23/17 14:15 Potassium 3.6 mEq/L (3.5-5.1) 08/23/17 14:15 Chloride 96 mEq/L (98-107) L 08/23/17 14:15 Carbon Dioxide 30.5 mEq/L (21.0-31.0) 08/23/17 14:15 Anion Gap 12.1 (7.0-16.0) 08/23/17 14:15 BUN 8 mg/dL (7-25) 08/23/17 14:15 Creatinine 0.5 mg/dL (0.6-1.2) L 08/23/17 14:15 Est GFR ( Amer) TNP 08/23/17 14:15 Est GFR (Non-Af Amer) TNP 08/23/17 14:15 BUN/Creatinine Ratio 16.0 08/23/17 14:15 Glucose 106 mg/dL (70-105) H 08/23/17 14:15 Whole Bld Lactic Acid 1.06 mmol/L (0.60-1.99) 08/23/17 14:15 Calcium 9.4 mg/dL (8.6-10.3) 08/23/17 14:15 Total Bilirubin 0.4 mg/dL (0.3-1.0) 08/23/17 14:15 AST 13 U/L (13-39) 08/23/17 14:15 ALT 9 U/L (7-52) 08/23/17 14:15 Alkaline Phosphatase 148 U/L (34-104) H 08/23/17 14:15 Creatine Kinase 18 U/L (30-223) L 08/23/17 14:15 Troponin I 0.01 ng/mL (0.01-0.05) 08/23/17 14:15 Total Protein 6.9 gm/dL (6.0-8.3) 08/23/17 14:15 Albumin 3.4 gm/dL (3.7-5.3) L 08/23/17 14:15 Globulin 3.5 gm/dL 08/23/17 14:15 Albumin/Globulin Ratio 1.0 (1.0-1.8) 08/23/17 14:15 Urine Source MIDSTREAM 08/25/17 10:15 Urine Color YELLOW 08/25/17 10:15 Urine Clarity SLIGHTLY HAZY (CLEAR) 08/25/17 10:15 Urine pH 6.5 (4.6 - 8.0) 08/25/17 10:15 Ur Specific [place] 1.010 (1.005-1.030) 08/25/17 10:15 Urine Protein NEGATIVE mg/dL (NEGATIVE) 08/25/17 10:15 Urine Glucose (UA) NEGATIVE mg/dL (NEGATIVE) 08/25/17 10:15 Urine Ketones NEGATIVE mg/dL (NEGATIVE) 08/25/17 10:15 Urine Blood SMALL (NEGATIVE) H 08/25/17 10:15 Urine Nitrate POSITIVE (NEGATIVE) H 08/25/17 10:15 Urine Bilirubin NEGATIVE (NEGATIVE) 08/25/17 10:15 Urine Urobilinogen 0.2 E.U./dL (0.2 - 1.0) 08/25/17 10:15 Ur Leukocyte Esterase SMALL (NEGATIVE) H 08/25/17 10:15 Urine RBC 5-10 /hpf (0-5) H 08/25/17 10:15 Urine WBC 10-25 /hpf (0-5) H 08/25/17 10:15 Ur Epithelial Cells MANY /lpf (FEW) 08/25/17 10:15 Urine Bacteria MODERATE /hpf (NONE SEEN) H 08/25/17 10:15 - Physical Exam Vitals and I&O: Vital Signs Temp 97.7 F 08/25/17 16:00 Pulse 79 08/25/17 17:15 Resp 20 08/25/17 16:00 BP 101/47 08/25/17 17:15 Pulse Ox 97 08/25/17 15:45 Intake & Output 08/24/17 08/25/17 08/25/17 18:59 06:59 18:59 Intake Total 850 1100 Balance 850 1100 Weight (lbs) 100.199 kg 100.244 kg Intake: Intake, IV Amount 1000 D5-0.45NS w/20 mEq KCL 1, 1000 000 ml @ 75 mls/hr IV . [id number] [facility] Rx#:[id number] Oral 850 100 Other: # Voids 3 4 # Bowel Movements 0 0 Weight Source Bedscale Bedscale Active Medications: Current Medications Acetaminophen (Tylenol) 650 mg PO Q6H PRN PRN Reason: mild pain Stop: 10/22/17 18:17 Last Admin: 08/25/17 00:06 Dose: 650 mg Acyclovir (Zovirax) 800 mg PO Q8HR [facility] Stop: 10/22/17 20:59 Last Admin: 08/25/17 12:38 Dose: 800 mg Albuterol/Ipratropium (Duoneb Neb) 3 ml HHN Q4HRT PRN PRN Reason: Shortness of Breath or Wheeze Stop: 10/22/17 15:42 Albuterol/Ipratropium (Duoneb Neb) 3 ml HHN Q4HRT [facility] Stop: 10/22/17 19:59 Last Admin: 08/25/17 15:41 Dose: 3 ml Artificial Tears (Artificial Tears Ophth Soln) 1 drop EACH EYE DAILY [facility] Stop: 10/23/17 08:59 Last Admin: 08/25/17 09:47 Dose: 1 drop Aspirin (Aspirin Chewable) 81 mg PO DAILY [facility] Stop: 10/23/17 08:59 Last Admin: 08/25/17 09:44 Dose: 81 mg Atorvastatin Calcium (Lipitor) 20 mg PO HS [facility] Stop: 10/23/17 20:59 Last Admin: 08/24/17 22:21 Dose: 20 mg Bisacodyl (Dulcolax 10 Mg Supp) 10 mg RC DAILY PRN PRN Reason: no bm x3 days Stop: 10/22/17 18:17 Carvedilol (Coreg) 3.125 mg PO BID [facility] Stop: 10/23/17 08:59 Last Admin: 08/25/17 17:15 Dose: 3.125 mg Clotrimazole (Lotrimin 1% Cream) 1 appl TP DAILY [facility] Stop: 10/23/17 08:59 Last Admin: 08/25/17 09:46 Dose: 1 appl Diphenhydramine HCl (Benadryl) 25 mg PO Q6H PRN PRN Reason: Itching Stop: 10/22/17 18:17 Docusate Sodium (Colace) 250 mg PO BID [facility] Stop: 10/23/17 08:59 Last Admin: 08/25/17 17:15 Dose: 250 mg Enoxaparin Sodium (Lovenox) 40 mg SUBQ Q24HR@2200 [facility]; Protocol Stop: 10/22/17 22:59 Last Admin: 08/24/17 22:22 Dose: 40 mg Escitalopram Oxalate (Lexapro) 20 mg PO HS [facility]; Protocol Stop: 10/22/17 20:59 Last Admin: 08/24/17 22:21 Dose: 20 mg Famotidine (Pepcid) 40 mg PO DAILY [facility] Stop: 10/23/17 08:59 Last Admin: 08/25/17 09:44 Dose: 40 mg Fentanyl (Duragesic 75 Mcg/Hr Tdm Patch) 1 patch TD Q72HR@0900 [facility]; Protocol Stop: 10/24/17 08:59 Last Admin: 08/25/17 09:46 Dose: 1 patch Ferrous Sulfate (Iron) 325 mg PO DAILY [facility] Stop: 10/23/17 08:59 Last Admin: 08/25/17 09:43 Dose: 325 mg Furosemide (Lasix) 20 mg PO BID [facility] Stop: 10/23/17 08:59 Last Admin: 08/25/17 17:15 Dose: 20 mg Potassium Chloride/Dextrose/Sod Cl (D5-0.45ns W/20 Meq Kcl) 1,000 mls @ 75 mls/ hr IV .[id number] [facility] Stop: 10/22/17 16:59 Last Admin: 08/25/17 09:42 Dose: 75 mls/hr Azithromycin 500 mg/ Sodium (Chloride) 250 mls @ 250 mls/hr IV Q24HR@2100 [facility] Stop: 10/22/17 20:59 Last Admin: 08/24/17 22:22 Dose: 250 mls/hr Ceftriaxone Sodium 1 gm/ (Dextrose) 50 mls @ 100 mls/hr IV Q24HR@2200 [facility] Stop: 10/22/17 21:59 Last Admin: 08/25/17 00:02 Dose: 100 mls/hr Lactobacillus Rhamnosus (Culturelle 15b) 1 each PO DAILY [facility] Stop: 10/23/17 08:59 Last Admin: 08/24/17 10:03 Dose: 1 each Lorazepam (Ativan) 0.5 mg PO BID PRN; Protocol PRN Reason: Anxiety Stop: 10/22/17 18:23 Last Admin: 08/25/17 15:40 Dose: 0.5 mg Miscellaneous (Olopatadine Hcl [Pataday]) 1 drop EACH EYE DAILY [facility] Stop: 10/23/17 08:59 Mupirocin (Bactroban Oint) 1 appl NS BID [facility] Stop: 08/30/17 09:01 Last Admin: 08/25/17 17:16 Dose: 1 appl Oxycodone HCl (Oxycontin) 10 mg PO Q12HR PRN PRN Reason: Pain (Severe) Stop: 10/23/17 22:59 Last Admin: 08/25/17 12:38 Dose: 10 mg Zolpidem Tartrate (Ambien) 10 mg PO HS [facility] Stop: 10/22/17 22:59 Last Admin: 08/24/17 22:22 Dose: 10 mg General: alert, obese HEENT: NC/AT, PERRLA, EOMI, anicteric sclerae, throat clear Neck: Supple, No JVD, No thyromegaly, +2 carotid pulse wo bruit, No LAD Lungs: ronchi Cardiovascular: RRR, Normal S1, Normal S2, without murmur Abdomen: soft, non-tender, non-distended Extremities: clear Neurological: no change Internal Medicine Assmt/Plan - Assessment Assessment: 1.PNEUMONIA. 2.DM. 3.HTN. 4.CHRONIC ANXIETY. - Plan Plan: CONTINUE ON CURRENT MEDICATION AND DIET.
[2017-08-25] MEDS: Lactobacillus Rhamnosus GG 15 Billion CFU CAP.SPRINK PO SCH (18:13)
[2017-08-25] MEDS: Atorvastatin Calcium 10 MG TAB PO SCH (20:10)
[2017-08-25] MEDS: Azithromycin 500 MG in Sodium Chloride 0.9% 250 ML IV SCH (20:11)
[2017-08-25] MEDS: Enoxaparin 40 mg/0.4 mL 0.4mL Syr SUBQ SCH (21:58)
[2017-08-26] MEDS: Albuterol/Ipratropium Neb 3 ML AERS HHN SCH ×6 (03:13→22:00)
[2017-08-26 06:23] LABS: ANION GAP 8.4 (7.0-16.0); BUN - UREA NITROGEN 5 mg/dL (7-25); CARBON DIOXIDE 29.4 mEq/L (21.0-31.0); CHLORIDE 100 mEq/L (98-107); CREATININE - SERUM 0.4 mg/dL (0.6-1.2); GLUCOSE 108 mg/dL (70-105); POTASSIUM SERUM 3.8 mEq/L (3.5-5.1); SODIUM SERUM 134 mEq/L (136-145)
[2017-08-26] MEDS: Polyvinyl Alcohol Ophth Soln 15 mL Bottle EACH EYE SCH (09:53)
[2017-08-26] MEDS: Ferrous Sulfate 325 MG TAB PO SCH (09:53)
[2017-08-26] MEDS: Aspirin 81mg Chewable Tab PO SCH (09:53)
[2017-08-26] MEDS: Lactobacillus Rhamnosus GG 15 Billion CFU CAP.SPRINK PO SCH (09:53)
[2017-08-26] MEDS: D5-0.45NS w/20 mEq KCL 1,000 ML IV SCH (15:09)
[2017-08-26] MEDS ORDERED: Enoxaparin 40 mg/0.4 mL 0.4mL Syr SUBQ SCH (21:00)
[2017-08-26] MEDS: Enoxaparin 40 mg/0.4 mL 0.4mL Syr SUBQ SCH (21:38)
[2017-08-26] MEDS: Atorvastatin Calcium 10 MG TAB PO SCH (21:38)
[2017-08-26] MEDS: Azithromycin 500 MG in Sodium Chloride 0.9% 250 ML IV SCH (21:39)
--- NOTE | 2017-08-26 23:32 | Internal Medicine Prog Note ---
Internal Medicine Subjective - Subjective Service Date: 08/26/17 Patient seen and examined:: with staff (SHE STILL HAS SOB.) Patient is:: awake, verbal, in bed, talking Per staff patient has:: no adverse event Internal Medicine Objective - Results Result Diagrams: 08/24/17 07:00 08/26/17 05:45 Recent Labs: Laboratory Last Values WBC 11.2 Th/cmm (4.8-10.8) H 08/24/17 07:00 RBC 3.49 Mil/cmm (3.80-5.20) L 08/24/17 07:00 Hgb 10.1 gm/dL (12-16) L 08/24/17 07:00 Hct 30.4 % (41.0-60) L 08/24/17 07:00 MCV 87.1 fl (81-100) 08/24/17 07:00 MCH 28.8 pg (27.0-31.0) 08/24/17 07:00 MCHC Differential 33.0 pg (28.0-36.0) 08/24/17 07:00 RDW 13.4 % (11.5-20.0) 08/24/17 07:00 Plt Count 400 Th/cmm (150-400) 08/24/17 07:00 MPV 8.3 fl 08/24/17 07:00 Neutrophils % 70.4 % (40.0-80.0) 08/24/17 07:00 Lymphocytes % 17.9 % (20.0-50.0) L 08/24/17 07:00 Monocytes % 7.7 % (2.0-10.0) 08/24/17 07:00 Eosinophils % 3.1 % (0.0-5.0) 08/24/17 07:00 Basophils % 0.9 % (0.0-2.0) 08/24/17 07:00 PT 10.0 SECONDS (9.5-11.5) 08/23/17 14:15 INR 0.96 (0.5-1.4) 08/23/17 14:15 PTT (Actin FS) 29.2 SECONDS (26.0-38.0) 08/23/17 14:15 Sodium 134 mEq/L (136-145) L 08/26/17 05:45 Potassium 3.8 mEq/L (3.5-5.1) 08/26/17 05:45 Chloride 100 mEq/L (98-107) 08/26/17 05:45 Carbon Dioxide 29.4 mEq/L (21.0-31.0) 08/26/17 05:45 Anion Gap 8.4 (7.0-16.0) 08/26/17 05:45 BUN 5 mg/dL (7-25) L 08/26/17 05:45 Creatinine 0.4 mg/dL (0.6-1.2) L 08/26/17 05:45 Est GFR ( Amer) TNP 08/26/17 05:45 Est GFR (Non-Af Amer) TNP 08/26/17 05:45 BUN/Creatinine Ratio 12.5 08/26/17 05:45 Glucose 108 mg/dL (70-105) H 08/26/17 05:45 Whole Bld Lactic Acid 1.06 mmol/L (0.60-1.99) 08/23/17 14:15 Calcium 9.0 mg/dL (8.6-10.3) 08/26/17 05:45 Total Bilirubin 0.4 mg/dL (0.3-1.0) 08/23/17 14:15 AST 13 U/L (13-39) 08/23/17 14:15 ALT 9 U/L (7-52) 08/23/17 14:15 Alkaline Phosphatase 148 U/L (34-104) H 08/23/17 14:15 Creatine Kinase 18 U/L (30-223) L 08/23/17 14:15 Troponin I 0.01 ng/mL (0.01-0.05) 08/23/17 14:15 Total Protein 6.9 gm/dL (6.0-8.3) 08/23/17 14:15 Albumin 3.4 gm/dL (3.7-5.3) L 08/23/17 14:15 Globulin 3.5 gm/dL 08/23/17 14:15 Albumin/Globulin Ratio 1.0 (1.0-1.8) 08/23/17 14:15 Urine Source MIDSTREAM 08/25/17 10:15 Urine Color YELLOW 08/25/17 10:15 Urine Clarity SLIGHTLY HAZY (CLEAR) 08/25/17 10:15 Urine pH 6.5 (4.6 - 8.0) 08/25/17 10:15 Ur Specific [place] 1.010 (1.005-1.030) 08/25/17 10:15 Urine Protein NEGATIVE mg/dL (NEGATIVE) 08/25/17 10:15 Urine Glucose (UA) NEGATIVE mg/dL (NEGATIVE) 08/25/17 10:15 Urine Ketones NEGATIVE mg/dL (NEGATIVE) 08/25/17 10:15 Urine Blood SMALL (NEGATIVE) H 08/25/17 10:15 Urine Nitrate POSITIVE (NEGATIVE) H 08/25/17 10:15 Urine Bilirubin NEGATIVE (NEGATIVE) 08/25/17 10:15 Urine Urobilinogen 0.2 E.U./dL (0.2 - 1.0) 08/25/17 10:15 Ur Leukocyte Esterase SMALL (NEGATIVE) H 08/25/17 10:15 Urine RBC 5-10 /hpf (0-5) H 08/25/17 10:15 Urine WBC 10-25 /hpf (0-5) H 08/25/17 10:15 Ur Epithelial Cells MANY /lpf (FEW) 08/25/17 10:15 Urine Bacteria MODERATE /hpf (NONE SEEN) H 08/25/17 10:15 - Physical Exam Vitals and I&O: Vital Signs Temp 98.2 F 08/26/17 20:00 Pulse 82 08/26/17 21:16 Resp 20 08/26/17 21:16 BP 118/52 08/26/17 20:00 Pulse Ox 97 08/26/17 21:16 Intake & Output 08/26/17 08/26/17 08/27/17 06:59 18:59 06:59 Intake Total 1232.5 1150 Balance 1232.5 1150 Weight (lbs) 102.512 kg 102.512 kg Intake: Intake, IV Amount 1232.5 1000 Azithromycin 500 mg In 250 Sodium Chloride 0.9% 250 ml @ 250 mls/hr IV Q24HR@ 2100 [facility] Rx#:[id number] D5-0.45NS w/20 mEq KCL 1, 932.5 1000 000 ml @ 75 mls/hr IV . [id number] [facility] Rx#:[id number] cefTRIAXone 1 gm In 50 Dextrose 5% 50 ml @ 100 mls/hr IV Q24HR@2200 [facility] Rx#:[id number] Oral 150 Other: # Voids 4 # Bowel Movements 0 Weight Source Bedscale Bedscale Active Medications: Current Medications Acetaminophen (Tylenol) 650 mg PO Q6H PRN PRN Reason: mild pain Stop: 10/22/17 18:17 Last Admin: 08/26/17 21:38 Dose: 650 mg Acyclovir (Zovirax) 800 mg PO Q8HR [facility] Stop: 10/22/17 20:59 Last Admin: 08/26/17 21:38 Dose: 800 mg Albuterol/Ipratropium (Duoneb Neb) 3 ml HHN Q4HRT PRN PRN Reason: Shortness of Breath or Wheeze Stop: 10/22/17 15:42 Last Admin: 08/26/17 21:16 Dose: 3 ml Albuterol/Ipratropium (Duoneb Neb) 3 ml HHN Q4HRT [facility] Stop: 10/22/17 19:59 Last Admin: 08/26/17 22:00 Dose: Not Given Artificial Tears (Artificial Tears Ophth Soln) 1 drop EACH EYE DAILY [facility] Stop: 10/23/17 08:59 Last Admin: 08/26/17 09:53 Dose: 1 drop Aspirin (Aspirin Chewable) 81 mg PO DAILY [facility] Stop: 10/23/17 08:59 Last Admin: 08/26/17 09:53 Dose: 81 mg Atorvastatin Calcium (Lipitor) 20 mg PO HS [facility] Stop: 10/23/17 20:59 Last Admin: 08/26/17 21:38 Dose: 20 mg Bisacodyl (Dulcolax 10 Mg Supp) 10 mg RC DAILY PRN PRN Reason: no bm x3 days Stop: 10/22/17 18:17 Carvedilol (Coreg) 3.125 mg PO BID [facility] Stop: 10/23/17 08:59 Last Admin: 08/26/17 16:26 Dose: 3.125 mg Clotrimazole (Lotrimin 1% Cream) 1 appl TP DAILY [facility] Stop: 10/23/17 08:59 Last Admin: 08/26/17 09:52 Dose: 1 appl Diphenhydramine HCl (Benadryl) 25 mg PO Q6H PRN PRN Reason: Itching Stop: 10/22/17 18:17 Docusate Sodium (Colace) 250 mg PO BID [facility] Stop: 10/23/17 08:59 Last Admin: 08/26/17 16:26 Dose: 250 mg Enoxaparin Sodium (Lovenox) 40 mg SUBQ DAILY@2100 [facility] Stop: 10/25/17 20:59 Last Admin: 08/26/17 21:38 Dose: 40 mg Escitalopram Oxalate (Lexapro) 20 mg PO HS [facility]; Protocol Stop: 10/22/17 20:59 Last Admin: 08/26/17 21:38 Dose: 20 mg Famotidine (Pepcid) 40 mg PO DAILY [facility] Stop: 10/23/17 08:59 Last Admin: 08/26/17 09:53 Dose: 40 mg Fentanyl (Duragesic 75 Mcg/Hr Tdm Patch) 1 patch TD Q72HR@0900 [facility]; Protocol Stop: 10/24/17 08:59 Last Admin: 08/25/17 09:46 Dose: 1 patch Ferrous Sulfate (Iron) 325 mg PO DAILY [facility] Stop: 10/23/17 08:59 Last Admin: 08/26/17 09:53 Dose: 325 mg Furosemide (Lasix) 20 mg PO BID [facility] Stop: 10/23/17 08:59 Last Admin: 08/26/17 16:26 Dose: 20 mg Potassium Chloride/Dextrose/Sod Cl (D5-0.45ns W/20 Meq Kcl) 1,000 mls @ 75 mls/ hr IV .[id number] [facility] Stop: 10/22/17 16:59 Last Admin: 08/26/17 15:09 Dose: 75 mls/hr Azithromycin 500 mg/ Sodium (Chloride) 250 mls @ 250 mls/hr IV Q24HR@2100 [facility] Stop: 10/22/17 20:59 Last Admin: 08/26/17 21:39 Dose: 250 mls/hr Ceftriaxone Sodium 1 gm/ (Dextrose) 50 mls @ 100 mls/hr IV Q24HR@2200 [facility] Stop: 10/22/17 21:59 Last Admin: 08/26/17 22:44 Dose: 100 mls/hr Lactobacillus Rhamnosus (Culturelle 15b) 1 each PO DAILY [facility] Stop: 10/23/17 08:59 Last Admin: 08/26/17 09:53 Dose: 1 each Lorazepam (Ativan) 0.5 mg PO BID PRN; Protocol PRN Reason: Anxiety Stop: 10/22/17 18:23 Last Admin: 08/26/17 12:51 Dose: 0.5 mg Miscellaneous (Olopatadine Hcl [Pataday]) 1 drop EACH EYE DAILY [facility] Stop: 10/23/17 08:59 Mupirocin (Bactroban Oint) 1 appl NS BID [facility] Stop: 08/30/17 09:01 Last Admin: 08/26/17 16:26 Dose: 1 appl Oxycodone HCl (Oxycontin) 10 mg PO Q12HR PRN PRN Reason: Pain (Severe) Stop: 10/23/17 22:59 Last Admin: 08/25/17 23:17 Dose: 10 mg Zolpidem Tartrate (Ambien) 10 mg PO HS [facility] Stop: 10/22/17 22:59 Last Admin: 08/26/17 21:39 Dose: 10 mg General: alert, obese HEENT: NC/AT, PERRLA, EOMI, anicteric sclerae, throat clear Neck: Supple, No JVD, No thyromegaly, +2 carotid pulse wo bruit, No LAD Lungs: ronchi Cardiovascular: RRR, Normal S1, Normal S2, without murmur Abdomen: soft, non-tender, non-distended Extremities: clear Neurological: no change Internal Medicine Assmt/Plan - Assessment Assessment: 1.PNEUMONIA. 2.DM. 3.HTN. 4.CHRONIC ANXIETY. - Plan Plan: CONTINUE ON CURRENT MEDICATION AND DIET.
[2017-08-27] MEDS: Albuterol/Ipratropium Neb 3 ML AERS HHN SCH ×6 (02:20→22:12)
[2017-08-27] MEDS: Polyvinyl Alcohol Ophth Soln 15 mL Bottle EACH EYE SCH (08:47)
[2017-08-27] MEDS: Lactobacillus Rhamnosus GG 15 Billion CFU CAP.SPRINK PO SCH (08:47)
[2017-08-27] MEDS: Ferrous Sulfate 325 MG TAB PO SCH (08:47)
[2017-08-27] MEDS: Aspirin 81mg Chewable Tab PO SCH (08:48)
--- NOTE | 2017-08-27 14:05 | Internal Medicine Prog Note ---
Internal Medicine Subjective - Subjective Service Date: 08/27/17 Patient seen and examined:: with staff (SHE STILL HAS ANXIETY.) Patient is:: awake, verbal, in bed, talking Per staff patient has:: no adverse event Internal Medicine Objective - Results Result Diagrams: 08/24/17 07:00 08/26/17 05:45 Recent Labs: Laboratory Last Values WBC 11.2 Th/cmm (4.8-10.8) H 08/24/17 07:00 RBC 3.49 Mil/cmm (3.80-5.20) L 08/24/17 07:00 Hgb 10.1 gm/dL (12-16) L 08/24/17 07:00 Hct 30.4 % (41.0-60) L 08/24/17 07:00 MCV 87.1 fl (81-100) 08/24/17 07:00 MCH 28.8 pg (27.0-31.0) 08/24/17 07:00 MCHC Differential 33.0 pg (28.0-36.0) 08/24/17 07:00 RDW 13.4 % (11.5-20.0) 08/24/17 07:00 Plt Count 400 Th/cmm (150-400) 08/24/17 07:00 MPV 8.3 fl 08/24/17 07:00 Neutrophils % 70.4 % (40.0-80.0) 08/24/17 07:00 Lymphocytes % 17.9 % (20.0-50.0) L 08/24/17 07:00 Monocytes % 7.7 % (2.0-10.0) 08/24/17 07:00 Eosinophils % 3.1 % (0.0-5.0) 08/24/17 07:00 Basophils % 0.9 % (0.0-2.0) 08/24/17 07:00 PT 10.0 SECONDS (9.5-11.5) 08/23/17 14:15 INR 0.96 (0.5-1.4) 08/23/17 14:15 PTT (Actin FS) 29.2 SECONDS (26.0-38.0) 08/23/17 14:15 Sodium 134 mEq/L (136-145) L 08/26/17 05:45 Potassium 3.8 mEq/L (3.5-5.1) 08/26/17 05:45 Chloride 100 mEq/L (98-107) 08/26/17 05:45 Carbon Dioxide 29.4 mEq/L (21.0-31.0) 08/26/17 05:45 Anion Gap 8.4 (7.0-16.0) 08/26/17 05:45 BUN 5 mg/dL (7-25) L 08/26/17 05:45 Creatinine 0.4 mg/dL (0.6-1.2) L 08/26/17 05:45 Est GFR ( Amer) TNP 08/26/17 05:45 Est GFR (Non-Af Amer) TNP 08/26/17 05:45 BUN/Creatinine Ratio 12.5 08/26/17 05:45 Glucose 108 mg/dL (70-105) H 08/26/17 05:45 Whole Bld Lactic Acid 1.06 mmol/L (0.60-1.99) 08/23/17 14:15 Calcium 9.0 mg/dL (8.6-10.3) 08/26/17 05:45 Total Bilirubin 0.4 mg/dL (0.3-1.0) 08/23/17 14:15 AST 13 U/L (13-39) 08/23/17 14:15 ALT 9 U/L (7-52) 08/23/17 14:15 Alkaline Phosphatase 148 U/L (34-104) H 08/23/17 14:15 Creatine Kinase 18 U/L (30-223) L 08/23/17 14:15 Troponin I 0.01 ng/mL (0.01-0.05) 08/23/17 14:15 Total Protein 6.9 gm/dL (6.0-8.3) 08/23/17 14:15 Albumin 3.4 gm/dL (3.7-5.3) L 08/23/17 14:15 Globulin 3.5 gm/dL 08/23/17 14:15 Albumin/Globulin Ratio 1.0 (1.0-1.8) 08/23/17 14:15 Urine Source MIDSTREAM 08/25/17 10:15 Urine Color YELLOW 08/25/17 10:15 Urine Clarity SLIGHTLY HAZY (CLEAR) 08/25/17 10:15 Urine pH 6.5 (4.6 - 8.0) 08/25/17 10:15 Ur Specific [place] 1.010 (1.005-1.030) 08/25/17 10:15 Urine Protein NEGATIVE mg/dL (NEGATIVE) 08/25/17 10:15 Urine Glucose (UA) NEGATIVE mg/dL (NEGATIVE) 08/25/17 10:15 Urine Ketones NEGATIVE mg/dL (NEGATIVE) 08/25/17 10:15 Urine Blood SMALL (NEGATIVE) H 08/25/17 10:15 Urine Nitrate POSITIVE (NEGATIVE) H 08/25/17 10:15 Urine Bilirubin NEGATIVE (NEGATIVE) 08/25/17 10:15 Urine Urobilinogen 0.2 E.U./dL (0.2 - 1.0) 08/25/17 10:15 Ur Leukocyte Esterase SMALL (NEGATIVE) H 08/25/17 10:15 Urine RBC 5-10 /hpf (0-5) H 08/25/17 10:15 Urine WBC 10-25 /hpf (0-5) H 08/25/17 10:15 Ur Epithelial Cells MANY /lpf (FEW) 08/25/17 10:15 Urine Bacteria MODERATE /hpf (NONE SEEN) H 08/25/17 10:15 - Physical Exam Vitals and I&O: Vital Signs Temp 96.9 F 08/27/17 11:51 Pulse 79 08/27/17 11:51 Resp 18 08/27/17 11:51 BP 118/55 08/27/17 11:51 Pulse Ox 92 08/27/17 11:51 Intake & Output 08/26/17 08/27/17 08/27/17 18:59 06:59 18:59 Intake Total 1150 100 Balance 1150 100 Weight (lbs) 102.512 kg 102.512 kg Intake: Intake, IV Amount 1000 D5-0.45NS w/20 mEq KCL 1, 1000 000 ml @ 75 mls/hr IV . [id number] [facility] Rx#:[id number] Oral 150 100 Other: # Voids 4 3 # Bowel Movements 0 0 Weight Source Bedscale Bedscale Active Medications: Current Medications Acetaminophen (Tylenol) 650 mg PO Q6H PRN PRN Reason: mild pain Stop: 10/22/17 18:17 Last Admin: 08/26/17 21:38 Dose: 650 mg Acyclovir (Zovirax) 800 mg PO Q8HR [facility] Stop: 10/22/17 20:59 Last Admin: 08/27/17 12:29 Dose: 800 mg Albuterol/Ipratropium (Duoneb Neb) 3 ml HHN Q4HRT PRN PRN Reason: Shortness of Breath or Wheeze Stop: 10/22/17 15:42 Last Admin: 08/26/17 21:16 Dose: 3 ml Albuterol/Ipratropium (Duoneb Neb) 3 ml HHN Q4HRT [facility] Stop: 10/22/17 19:59 Last Admin: 08/27/17 10:47 Dose: 3 ml Artificial Tears (Artificial Tears Ophth Soln) 1 drop EACH EYE DAILY [facility] Stop: 10/23/17 08:59 Last Admin: 08/27/17 08:47 Dose: 1 drop Aspirin (Aspirin Chewable) 81 mg PO DAILY [facility] Stop: 10/23/17 08:59 Last Admin: 08/27/17 08:48 Dose: 81 mg Atorvastatin Calcium (Lipitor) 20 mg PO HS [facility] Stop: 10/23/17 20:59 Last Admin: 08/26/17 21:38 Dose: 20 mg Bisacodyl (Dulcolax 10 Mg Supp) 10 mg RC DAILY PRN PRN Reason: no bm x3 days Stop: 10/22/17 18:17 Carvedilol (Coreg) 3.125 mg PO BID [facility] Stop: 10/23/17 08:59 Last Admin: 08/27/17 08:47 Dose: 3.125 mg Clotrimazole (Lotrimin 1% Cream) 1 appl TP DAILY [facility] Stop: 10/23/17 08:59 Last Admin: 08/27/17 08:47 Dose: 1 appl Diphenhydramine HCl (Benadryl) 25 mg PO Q6H PRN PRN Reason: Itching Stop: 10/22/17 18:17 Docusate Sodium (Colace) 250 mg PO BID [facility] Stop: 10/23/17 08:59 Last Admin: 08/27/17 08:48 Dose: 250 mg Enoxaparin Sodium (Lovenox) 40 mg SUBQ DAILY@2100 [facility] Stop: 10/25/17 20:59 Last Admin: 08/26/17 21:38 Dose: 40 mg Escitalopram Oxalate (Lexapro) 20 mg PO HS [facility]; Protocol Stop: 10/22/17 20:59 Last Admin: 08/26/17 21:38 Dose: 20 mg Famotidine (Pepcid) 40 mg PO DAILY [facility] Stop: 10/23/17 08:59 Last Admin: 08/27/17 08:47 Dose: 40 mg Fentanyl (Duragesic 75 Mcg/Hr Tdm Patch) 1 patch TD Q72HR@0900 [facility]; Protocol Stop: 10/24/17 08:59 Last Admin: 08/25/17 09:46 Dose: 1 patch Ferrous Sulfate (Iron) 325 mg PO DAILY [facility] Stop: 10/23/17 08:59 Last Admin: 08/27/17 08:47 Dose: 325 mg Furosemide (Lasix) 20 mg PO BID [facility] Stop: 10/23/17 08:59 Last Admin: 08/27/17 08:48 Dose: 20 mg Potassium Chloride/Dextrose/Sod Cl (D5-0.45ns W/20 Meq Kcl) 1,000 mls @ 75 mls/ hr IV .[id number] [facility] Stop: 10/22/17 16:59 Last Admin: 08/26/17 15:09 Dose: 75 mls/hr Azithromycin 500 mg/ Sodium (Chloride) 250 mls @ 250 mls/hr IV Q24HR@2100 [facility] Stop: 10/22/17 20:59 Last Admin: 08/26/17 21:39 Dose: 250 mls/hr Ceftriaxone Sodium 1 gm/ (Dextrose) 50 mls @ 100 mls/hr IV Q24HR@2200 [facility] Stop: 10/22/17 21:59 Last Admin: 08/26/17 22:44 Dose: 100 mls/hr Lactobacillus Rhamnosus (Culturelle 15b) 1 each PO DAILY [facility] Stop: 10/23/17 08:59 Last Admin: 08/27/17 08:47 Dose: 1 each Lorazepam (Ativan) 0.5 mg PO BID PRN; Protocol PRN Reason: Anxiety Stop: 10/22/17 18:23 Last Admin: 08/26/17 12:51 Dose: 0.5 mg Miscellaneous (Olopatadine Hcl [Pataday]) 1 drop EACH EYE DAILY [facility] Stop: 10/23/17 08:59 Mupirocin (Bactroban Oint) 1 appl NS BID [facility] Stop: 08/30/17 09:01 Last Admin: 08/27/17 08:47 Dose: 1 appl Oxycodone HCl (Oxycontin) 10 mg PO Q12HR PRN PRN Reason: Pain (Severe) Stop: 10/23/17 22:59 Last Admin: 08/25/17 23:17 Dose: 10 mg Zolpidem Tartrate (Ambien) 10 mg PO HS [facility] Stop: 10/22/17 22:59 Last Admin: 08/26/17 21:39 Dose: 10 mg General: alert, obese HEENT: NC/AT, PERRLA, EOMI, anicteric sclerae, throat clear Neck: Supple, No JVD, No thyromegaly, +2 carotid pulse wo bruit, No LAD Lungs: ronchi Cardiovascular: RRR, Normal S1, Normal S2, without murmur Abdomen: soft, non-tender, non-distended Extremities: clear Neurological: no change Internal Medicine Assmt/Plan - Assessment Assessment: 1.PNEUMONIA. 2.DM. 3.HTN. 4.CHRONIC ANXIETY. - Plan Plan: CONTINUE ON CURRENT MEDICATION AND DIET.CONSULT .
[2017-08-27] MEDS ORDERED: Fleet Enema 135 mL RC PRN (15:18)
[2017-08-27] MEDS: D5-0.45NS w/20 mEq KCL 1,000 ML IV SCH (20:52)
[2017-08-27] MEDS: Azithromycin 500 MG in Sodium Chloride 0.9% 250 ML IV SCH (20:52)
[2017-08-27] MEDS: Enoxaparin 40 mg/0.4 mL 0.4mL Syr SUBQ SCH (20:53)
[2017-08-27] MEDS: Atorvastatin Calcium 10 MG TAB PO SCH (20:53)
[2017-08-28] MEDS: Albuterol/Ipratropium Neb 3 ML AERS HHN SCH ×6 (02:13→22:43)
[2017-08-28 06:06] LABS: % BASOPHILS 1.2 % (0.0-2.0); % EOSINOPHILS 5.3 % (0.0-5.0); % LYMPHOCYTES 34.5 % (20.0-50.0); % MONOCYTES 7.8 % (2.0-10.0); % NEUTROPHILS 51.2 % (40.0-80.0); BASOPHILE ABSOLUTE 0.1 Th/cumm (0-0.2); EOSINOPHILE ABSOLUTE 0.4 Th/cmm (0.1-0.4); HEMATOCRIT 28.4 % (41.0-60); HEMOGLOBIN 9.5 gm/dL (12-16); LYMPHOCYTE ABSOLUTE 2.5 Th/cmm (1.5-3.0); MEAN CELL VOLUME 86.9 fl (81-100); MEAN CORPUSCULAR HGB CONC 33.4 pg (28.0-36.0); MEAN PLATELET VOLUME 8.4 fl; MONOCYTE ABSOLUTE 0.6 Th/cmm (0.3-1.0); NEUTROPHILE ABSOLUTE 3.6 Th/cmm (1.8-8.0); PLATELET COUNT 350 Th/cmm (150-400); RED BLOOD COUNT 3.26 Mil/cmm (3.80-5.20); RED CELL DISTRIBUTION WIDTH 13.6 % (11.5-20.0); WHITE BLOOD COUNT 7.2 Th/cmm (4.8-10.8)
[2017-08-28] MEDS: Ferrous Sulfate 325 MG TAB PO SCH (09:38)
[2017-08-28] MEDS: Lactobacillus Rhamnosus GG 15 Billion CFU CAP.SPRINK PO SCH (09:38)
[2017-08-28] MEDS: Aspirin 81mg Chewable Tab PO SCH (09:38)
[2017-08-28] MEDS: Polyvinyl Alcohol Ophth Soln 15 mL Bottle EACH EYE SCH (09:40)
--- NOTE | 2017-08-28 09:48 | Consultation ---
DATE OF CONSULTATION: 08/28/2017 AGE: 81. SEX: Female. PHYSICIAN: Dr. Sears. APPRENTICE FUNERAL DIRECTOR: Dr. Mckenzie. TYPE OF THE REPORT: Psychiatric consult. REASON FOR THE CONSULT: Depression and stabilizing psychotropic medications. HISTORY OF PRESENT ILLNESS: The patient is an 81-year-old female who lives in [facility]. The patient has been depressed and has been taking Lexapro in a dose of 20 mg every day. The patient is still in a depressed mood and anxious. The patient also has been feeling hopeless and helpless. The patient also has been withdrawn. The patient said that the main reason for her depression is that she has not been seeing her children for more than several years. She also has been having lack of energy and lack of motivations and her medical problems making her more depressed. PAST PSYCHIATRIC HISTORY: The patient has history of depression and has been taking Lexapro in a dose of 20 mg everyday, but she is still depressed. PAST MEDICAL HISTORY: As per Dr. Sears. SOCIAL HISTORY: The patient is . She has 5 children. She lives in [facility] for almost 5 years. She denies any alcohol or street drug use. MENTAL STATUS EXAM: The patient appears her stated age. Sad affect. In a depressed mood. Cooperative. Thought processes are mainly goal directed. The patient denies any hallucinations or delusions. She denies any thoughts of suicide or homicide. The patient is alert and oriented to time, place, person, and situation. Intact immediate, recent, and remote memories. Fair insight. Fair judgment. She seems to be of average intelligence based on her verbal ability. ASSESSMENT AND PRIMARY DIAGNOSIS: Major depression, severe, recurrent, without psychotic features. TREATMENT PLAN: We will continue Lexapro same dose. We will add Abilify in a dose of 2 mg every day as a boost for the Lexapro. Also, we will continue supportive therapy and follow up. Thanks to Dr. Sears and we will follow up with you. JOB# [id number]
[2017-08-28] MEDS: fentaNYL 75 mcg/hr Tdm Patch TD SCH (09:54)
--- NOTE | 2017-08-28 11:53 | Internal Medicine Prog Note ---
Internal Medicine Subjective - Subjective Service Date: 08/28/17 Patient seen and examined:: with staff (SHE FEELS BETTER,LESS SOB.SHE WAS SEEN BY .) Patient is:: awake, verbal, in bed, talking Per staff patient has:: no adverse event Internal Medicine Objective - Results Result Diagrams: 08/28/17 04:55 08/26/17 05:45 Recent Labs: Laboratory Last Values WBC 7.2 Th/cmm (4.8-10.8) 08/28/17 04:55 RBC 3.26 Mil/cmm (3.80-5.20) L 08/28/17 04:55 Hgb 9.5 gm/dL (12-16) L 08/28/17 04:55 Hct 28.4 % (41.0-60) L 08/28/17 04:55 MCV 86.9 fl (81-100) 08/28/17 04:55 MCH 29.0 pg (27.0-31.0) 08/28/17 04:55 MCHC Differential 33.4 pg (28.0-36.0) 08/28/17 04:55 RDW 13.6 % (11.5-20.0) 08/28/17 04:55 Plt Count 350 Th/cmm (150-400) 08/28/17 04:55 MPV 8.4 fl 08/28/17 04:55 Neutrophils % 51.2 % (40.0-80.0) 08/28/17 04:55 Lymphocytes % 34.5 % (20.0-50.0) 08/28/17 04:55 Monocytes % 7.8 % (2.0-10.0) 08/28/17 04:55 Eosinophils % 5.3 % (0.0-5.0) H 08/28/17 04:55 Basophils % 1.2 % (0.0-2.0) 08/28/17 04:55 PT 10.0 SECONDS (9.5-11.5) 08/23/17 14:15 INR 0.96 (0.5-1.4) 08/23/17 14:15 PTT (Actin FS) 29.2 SECONDS (26.0-38.0) 08/23/17 14:15 Sodium 134 mEq/L (136-145) L 08/26/17 05:45 Potassium 3.8 mEq/L (3.5-5.1) 08/26/17 05:45 Chloride 100 mEq/L (98-107) 08/26/17 05:45 Carbon Dioxide 29.4 mEq/L (21.0-31.0) 08/26/17 05:45 Anion Gap 8.4 (7.0-16.0) 08/26/17 05:45 BUN 5 mg/dL (7-25) L 08/26/17 05:45 Creatinine 0.4 mg/dL (0.6-1.2) L 08/26/17 05:45 Est GFR ( Amer) TNP 08/26/17 05:45 Est GFR (Non-Af Amer) TNP 08/26/17 05:45 BUN/Creatinine Ratio 12.5 08/26/17 05:45 Glucose 108 mg/dL (70-105) H 08/26/17 05:45 Whole Bld Lactic Acid 1.06 mmol/L (0.60-1.99) 08/23/17 14:15 Calcium 9.0 mg/dL (8.6-10.3) 08/26/17 05:45 Total Bilirubin 0.4 mg/dL (0.3-1.0) 08/23/17 14:15 AST 13 U/L (13-39) 08/23/17 14:15 ALT 9 U/L (7-52) 08/23/17 14:15 Alkaline Phosphatase 148 U/L (34-104) H 08/23/17 14:15 Creatine Kinase 18 U/L (30-223) L 08/23/17 14:15 Troponin I 0.01 ng/mL (0.01-0.05) 08/23/17 14:15 Total Protein 6.9 gm/dL (6.0-8.3) 08/23/17 14:15 Albumin 3.4 gm/dL (3.7-5.3) L 08/23/17 14:15 Globulin 3.5 gm/dL 08/23/17 14:15 Albumin/Globulin Ratio 1.0 (1.0-1.8) 08/23/17 14:15 Urine Source MIDSTREAM 08/25/17 10:15 Urine Color YELLOW 08/25/17 10:15 Urine Clarity SLIGHTLY HAZY (CLEAR) 08/25/17 10:15 Urine pH 6.5 (4.6 - 8.0) 08/25/17 10:15 Ur Specific [place] 1.010 (1.005-1.030) 08/25/17 10:15 Urine Protein NEGATIVE mg/dL (NEGATIVE) 08/25/17 10:15 Urine Glucose (UA) NEGATIVE mg/dL (NEGATIVE) 08/25/17 10:15 Urine Ketones NEGATIVE mg/dL (NEGATIVE) 08/25/17 10:15 Urine Blood SMALL (NEGATIVE) H 08/25/17 10:15 Urine Nitrate POSITIVE (NEGATIVE) H 08/25/17 10:15 Urine Bilirubin NEGATIVE (NEGATIVE) 08/25/17 10:15 Urine Urobilinogen 0.2 E.U./dL (0.2 - 1.0) 08/25/17 10:15 Ur Leukocyte Esterase SMALL (NEGATIVE) H 08/25/17 10:15 Urine RBC 5-10 /hpf (0-5) H 08/25/17 10:15 Urine WBC 10-25 /hpf (0-5) H 08/25/17 10:15 Ur Epithelial Cells MANY /lpf (FEW) 08/25/17 10:15 Urine Bacteria MODERATE /hpf (NONE SEEN) H 08/25/17 10:15 - Physical Exam Vitals and I&O: Vital Signs Temp 97.1 F 08/28/17 11:50 Pulse 79 08/28/17 11:50 Resp 18 08/28/17 11:50 BP 113/49 08/28/17 11:50 Pulse Ox 98 08/28/17 11:50 Intake & Output 08/27/17 08/28/17 08/28/17 18:59 06:59 18:59 Intake Total 800 150 Balance 800 150 Weight (lbs) 102.512 kg 102.512 kg Intake: Oral 800 150 Other: # Voids 3 4 # Bowel Movements 2 0 Weight Source Bedscale Bedscale Active Medications: Current Medications Acetaminophen (Tylenol) 650 mg PO Q6H PRN PRN Reason: mild pain Stop: 10/22/17 18:17 Last Admin: 08/28/17 02:27 Dose: 650 mg Acyclovir (Zovirax) 800 mg PO Q8HR [facility] Stop: 10/22/17 20:59 Last Admin: 08/28/17 06:56 Dose: 800 mg Albuterol/Ipratropium (Duoneb Neb) 3 ml HHN Q4HRT PRN PRN Reason: Shortness of Breath or Wheeze Stop: 10/22/17 15:42 Last Admin: 08/26/17 21:16 Dose: 3 ml Albuterol/Ipratropium (Duoneb Neb) 3 ml HHN Q4HRT [facility] Stop: 10/22/17 19:59 Last Admin: 08/28/17 11:03 Dose: 3 ml Aripiprazole (Abilify) 2 mg PO DAILY [facility]; Protocol Stop: 10/27/17 08:59 Last Admin: 08/28/17 09:41 Dose: 2 mg Artificial Tears (Artificial Tears Ophth Soln) 1 drop EACH EYE DAILY [facility] Stop: 10/23/17 08:59 Last Admin: 08/28/17 09:40 Dose: 1 drop Aspirin (Aspirin Chewable) 81 mg PO DAILY [facility] Stop: 10/23/17 08:59 Last Admin: 08/28/17 09:38 Dose: 81 mg Atorvastatin Calcium (Lipitor) 20 mg PO HS [facility] Stop: 10/23/17 20:59 Last Admin: 08/27/17 20:53 Dose: 20 mg Bisacodyl (Dulcolax 10 Mg Supp) 10 mg RC DAILY PRN PRN Reason: no bm x3 days Stop: 10/22/17 18:17 Last Admin: 08/27/17 14:40 Dose: 10 mg Carvedilol (Coreg) 3.125 mg PO BID [facility] Stop: 10/23/17 08:59 Last Admin: 08/28/17 09:41 Dose: Not Given Clotrimazole (Lotrimin 1% Cream) 1 appl TP DAILY [facility] Stop: 10/23/17 08:59 Last Admin: 08/28/17 09:40 Dose: 1 appl Diphenhydramine HCl (Benadryl) 25 mg PO Q6H PRN PRN Reason: Itching Stop: 10/22/17 18:17 Docusate Sodium (Colace) 250 mg PO BID [facility] Stop: 10/23/17 08:59 Last Admin: 08/28/17 09:37 Dose: 250 mg Enoxaparin Sodium (Lovenox) 40 mg SUBQ DAILY@2100 [facility] Stop: 10/25/17 20:59 Last Admin: 08/27/17 20:53 Dose: 40 mg Escitalopram Oxalate (Lexapro) 20 mg PO HS [facility]; Protocol Stop: 10/22/17 20:59 Last Admin: 08/27/17 20:53 Dose: 20 mg Famotidine (Pepcid) 40 mg PO DAILY [facility] Stop: 10/23/17 08:59 Last Admin: 08/28/17 09:37 Dose: 40 mg Fentanyl (Duragesic 75 Mcg/Hr Tdm Patch) 1 patch TD Q72HR@0900 [facility]; Protocol Stop: 10/24/17 08:59 Last Admin: 08/28/17 09:54 Dose: 1 patch Ferrous Sulfate (Iron) 325 mg PO DAILY [facility] Stop: 10/23/17 08:59 Last Admin: 08/28/17 09:38 Dose: 325 mg Furosemide (Lasix) 20 mg PO BID [facility] Stop: 10/23/17 08:59 Last Admin: 08/28/17 09:38 Dose: 20 mg Potassium Chloride/Dextrose/Sod Cl (D5-0.45ns W/20 Meq Kcl) 1,000 mls @ 75 mls/ hr IV .[id number] [facility] Stop: 10/22/17 16:59 Last Admin: 08/27/17 20:52 Dose: 75 mls/hr Azithromycin 500 mg/ Sodium (Chloride) 250 mls @ 250 mls/hr IV Q24HR@2100 [facility] Stop: 10/22/17 20:59 Last Admin: 08/27/17 20:52 Dose: 250 mls/hr Ceftriaxone Sodium 1 gm/ (Dextrose) 50 mls @ 100 mls/hr IV Q24HR@2200 [facility] Stop: 10/22/17 21:59 Last Admin: 08/27/17 22:53 Dose: 100 mls/hr Lactobacillus Rhamnosus (Culturelle 15b) 1 each PO DAILY [facility] Stop: 10/23/17 08:59 Last Admin: 08/28/17 09:38 Dose: 1 each Lorazepam (Ativan) 0.5 mg PO BID PRN; Protocol PRN Reason: Anxiety Stop: 10/22/17 18:23 Last Admin: 08/27/17 19:03 Dose: 0.5 mg Miscellaneous (Olopatadine Hcl [Pataday]) 1 drop EACH EYE DAILY [facility] Stop: 10/23/17 08:59 Mupirocin (Bactroban Oint) 1 appl NS BID [facility] Stop: 08/30/17 09:01 Last Admin: 08/28/17 09:40 Dose: 1 appl Oxycodone HCl (Oxycontin) 10 mg PO Q12HR PRN PRN Reason: Pain (Severe) Stop: 10/23/17 22:59 Last Admin: 08/28/17 09:38 Dose: 10 mg Sodium Phosphate (Fleet Enema) 135 ml RC DAILY PRN PRN Reason: If Dulcolax ineffective Stop: 10/26/17 15:17 Zolpidem Tartrate (Ambien) 10 mg PO HS [facility] Stop: 10/22/17 22:59 Last Admin: 08/27/17 20:53 Dose: 5 mg General: alert, obese HEENT: NC/AT, PERRLA, EOMI, anicteric sclerae, throat clear Neck: Supple, No JVD, No thyromegaly, +2 carotid pulse wo bruit, No LAD Lungs: ronchi Cardiovascular: RRR, Normal S1, Normal S2, without murmur Abdomen: soft, non-tender, non-distended Extremities: clear Neurological: no change Internal Medicine Assmt/Plan - Assessment Assessment: 1.PNEUMONIA. 2.DM. 3.HTN. 4.CHRONIC ANXIETY. - Plan Plan: CONTINUE ON CURRENT MEDICATION AND DIET.
[2017-08-28] MEDS ORDERED: Probiotic Screen MC PRN (12:13)
[2017-08-28] MEDS: D5-0.45NS w/20 mEq KCL 1,000 ML IV SCH (16:31)
[2017-08-28] MEDS: Atorvastatin Calcium 10 MG TAB PO SCH (20:08)
[2017-08-28] MEDS: Enoxaparin 40 mg/0.4 mL 0.4mL Syr SUBQ SCH (20:09)
[2017-08-28] MEDS: Azithromycin 500 MG in Sodium Chloride 0.9% 250 ML IV SCH (20:14)
[2017-08-29 05:58] LABS: ANION GAP 8.7 (7.0-16.0); BUN - UREA NITROGEN 6 mg/dL (7-25); CALCIUM SERUM 9.2 mg/dL (8.6-10.3); CARBON DIOXIDE 29.6 mEq/L (21.0-31.0); CHLORIDE 97 mEq/L (98-107); CREATININE - SERUM 0.4 mg/dL (0.6-1.2); GLUCOSE 103 mg/dL (70-105); POTASSIUM SERUM 4.3 mEq/L (3.5-5.1); SODIUM SERUM 131 mEq/L (136-145)
[2017-08-29] MEDS: D5-0.45NS w/20 mEq KCL 1,000 ML IV SCH (06:45)
[2017-08-29] MEDS: Albuterol/Ipratropium Neb 3 ML AERS HHN SCH ×3 (07:03→14:09)
[2017-08-29] MEDS: Aspirin 81mg Chewable Tab PO SCH (08:34)
[2017-08-29] MEDS: Ferrous Sulfate 325 MG TAB PO SCH (08:35)
[2017-08-29] MEDS: Polyvinyl Alcohol Ophth Soln 15 mL Bottle EACH EYE SCH (08:36)
[2017-08-29] MEDS: Lactobacillus Rhamnosus GG 15 Billion CFU CAP.SPRINK PO SCH (08:43)
[2017-08-29] MEDS ORDERED: Linezolid 600mg/300mL Premix Bag IV SCH (10:00)
[2017-08-29] MEDS ORDERED: Maalox 30 mL Cup PO PRN (14:21)
[2017-08-29] MEDS ORDERED: Saline 0.65% Nasal Spray NS SCH (14:30)
--- NOTE | 2017-08-30 01:19 | Discharge Summary ---
DATE OF DISCHARGE: 08/29/2017 FINAL DIAGNOSES: 1. Bilateral pneumonia. 2. Acute exacerbation of asthma. 3. Urinary infection secondary to vancomycin-resistant enterococci. 4. Chronic anemia. 5. Obesity. 6. Chronic anxiety disorder. 7. Depression. REVIEW OF HISTORY: The patient is an 81-year-old female with long history of asthma, obesity, depression, chronic anxiety disorder, presented to the Emergency Room at [facility] with shortness of breath. Evaluated by the ER physician. Initial workup significant for pneumonia, admitted to the hospital. Also, she has some dysuria. Urine was sent for culture and sensitivity. PHYSICAL EXAMINATION: VITAL SIGNS: Temperature 97.1, heart rate 91, blood pressure 124/76. CHEST: Diminished breathing sound. HEART: S1, S2 normal. ABDOMEN: Soft, bowel sounds positive. EXTREMITIES: No edema. The patient started IV antibiotic. Dr. Mckenzie, psychiatrist consulted on the case. The patient started on IV antibiotic, fluids, breathing treatment. COURSE OF HOSPITALIZATION: On 08/23/2017, the patient still has cough congestion. LABORATORY DATA: White blood cell 11.2, hemoglobin 10.1, hematocrit 30.4. Sodium 134, potassium 3.8, BUN 5, creatinine 2.5. The patient continue on antibiotic. Urine culture was positive for VRE. The patient was started on Zyvox 600 mg IV twice a day. On 08/29/2017, the patient is feeling better. No cough, no shortness of breath, no nausea, no vomiting. Chest is clear to auscultation. Abdomen is soft, bowel sounds positive. DISPOSITION: The patient was transferred back to [facility] to continue on her IV antibiotic for 2 weeks. CONDITION ON DISCHARGE: Stable. MEDICATIONS: Follow discharge reconciliation. JOB# [id number]
--- NOTE | 2017-08-30 02:47 | Progress Notes ---
DATE: 08/29/2017 SUBJECTIVE: Chart reviewed and the patient interviewed. Also discussed the patient's condition with the staff and reviewed records and labs. The patient still has episodes of yelling and screaming and according to the staff, the patient needs constant attention. The patient also is still complaining of feeling depressed and also complaining of abdominal pain. Otherwise, the patient is compliant with taking her medications. The patient said that she did not sleep at all last night and that she was awake most of the night, although "I took two Ambien." ASSESSMENT: The patient is still depressed and still needs lot of attention. TREATMENT PLAN: We will continue to monitor her condition and her medications closely. Also, we will increase Abilify to 5 mg every day. Also, we will add trazodone 50 mg everyday and we will continue to follow up. Also, we will continue to provide supportive therapy for the patient. [facility]# [id number]
== END 2017-08-29 19:45 | DRG 871 ==
LOC: ER 12:48 → MSI 15:35
PROVIDERS: ADMIT Family Medicine; ATTEND Family Medicine
DX: A41.9 Sepsis, unspecified organism (principal); J18.9 Pneumonia, unspecified organism; F33.2 Major depressive disorder, recurrent severe without psychotic features; J45.901 Unspecified asthma with (acute) exacerbation; N39.0 Urinary tract infection, site not specified; Z68.41 Body mass index [BMI] 40.0-44.9, adult; D64.9 Anemia, unspecified; F41.9 Anxiety disorder, unspecified; E11.9 Type 2 diabetes mellitus without complications; I10 Essential (primary) hypertension; I25.10 Atherosclerotic heart disease of native coronary artery without angina pectoris; J44.9 Chronic obstructive pulmonary disease, unspecified; K21.9 Gastro-esophageal reflux disease without esophagitis; Z82.49 Family history of ischemic heart disease and other diseases of the circulatory system; E78.5 Hyperlipidemia, unspecified; M19.90 Unspecified osteoarthritis, unspecified site; B96.89 Other specified bacterial agents as the cause of diseases classified elsewhere; E66.9 Obesity, unspecified
CPT/HCPCS: 36415-UA; 71045-TC; 80048-TC; 80053-TC; 81001-TC; 82550-TC; 83605; 84484-TC; 85025-TC; 85610-TC; 85730-TC; 87086-90; 90784; 93005; 94760; J0456; J0696; J1650; J1956; J2020; Q0162; Z7610

== ENCOUNTER 2017-09-05 13:39 | Inpatient (IN) | payer MEDICARE, MEDICAID ==
--- NOTE | 2017-09-05 14:29 | ED Physician Chart ---
ED Chief Complaint/HPI - Patient Information Date Seen:: 09/05/17 Time Seen:: 14:05 Chief Complaint:: altered level of consciousness History of Present Illness:: Patient is reportedly more confused than normal although she knows the correct month and year. Patient complains of pain ever hand, arms, back and neck Allergies:: Allergies Allergy/AdvReac Type Severity Reaction Status Date / Time No Known Allergies Allergy Verified 08/23/17 13:42 Historian:: Patient, EMS Review:: Nurse's Note Reviewed ED Review of Systems - Review of Systems General/Constitutional: No fever, No chills, No weight loss, No weakness, No diaphoresis, No edema, No loss of appetite Skin: No skin lesions, No rash, No bruising Head: No headache, No light-headedness Eyes: No loss of vision, No pain, No diplopia ENT: No earache, No nasal drainage, No sore throat, No tinnitus Neck: No neck pain, No swelling, No thyromegaly, No stiffness, No mass noted Cardio Vascular: No chest pain, No palpitations, No PND, No orthopnea, No edema Pulmonary: No SOB, No cough, No sputum, No wheezing GI: No nausea, No vomiting, No diarrhea, No pain, No melena, No hematochezia, No constipation, No hematemesis G/U: No dysuria, No frequency, No hematuria Musculoskeletal: No bone or joint pain, No back pain, No muscle pain Endocrine: No polyuria, No polydipsia Psychiatric: No prior psych history, No depression, No anxiety, No suicidal ideation Hematopoietic: No bruising, No lymphadenopathy Allergic/Immuno: No urticaria, No angioedema Neurological: No syncope, No focal symptoms, No weakness, No paresthesia, No headache, No seizure, No dizziness, Confusion, No vertigo ED Past Medical History - Past Medical History Past Medical History: HTN, DM, Asthma/COPD, Other (status post pneumonia; obesity depression; chronic anxiety; insomnia) Family History: Cancer, Other Social History: Non Smoker, No Alcohol Surgical History: other (surgeries but she does not remember the names) Psychiatricy History: Depression Medication: Reviewed Family Medical History - Family Member Mother History Unknown: Yes Living Status: Hx Family Cancer: No Hx Family Coronary Artery Disease: Yes Hx Family Congestive Heart Failure: Yes Hx Family Hypertension: Yes Hx Family Stroke: Yes Hx Family Diabetes: No Hx Family Seizures: No Hx Family Dementia: Yes Hx Family AIDS: No Hx Family HIV: No Hx Family COPD: No Hx Family Hepatitis: No Hx Family Psychiatric Problems: No Hx Family Tuberculosis: No Father History Unknown: Yes Living Status: Hx Family Cancer: Yes Hx Family Coronary Artery Disease: No Hx Family Congestive Heart Failure: No Hx Family Hypertension: No Hx Family Stroke: No Hx Family Diabetes: No Hx Family Seizures: No Hx Family Dementia: No Hx Family AIDS: No Hx Family HIV: No Hx Family COPD: No Hx Family Hepatitis: No Hx Family Psychiatric Problems: No Hx Family Tuberculosis: No ED Labs/Radiology/EKG Results - Lab Results Results: Laboratory Results - last 24 hr 09/05/17 09/05/17 09/05/17 14:38 14:38 15:09 WBC 9.3 RBC 3.21 L Hgb 9.2 L Hct 28.1 L MCV 87.6 MCH 28.8 MCHC Differential 32.9 RDW 15.0 Plt Count 251 MPV 8.7 Neutrophils % 69.5 Lymphocytes % 23.7 Monocytes % 5.0 Eosinophils % 1.8 Basophils % 0.0 Sodium 134 L Potassium 3.3 L Chloride 93 L Carbon Dioxide 35.7 H Anion Gap 8.6 BUN 6 L Creatinine 0.4 L Est GFR ( Amer) TNP Est GFR (Non-Af Amer) TNP BUN/Creatinine Ratio 15.0 Glucose 102 Calcium 9.2 Urine Source CATH Urine Color YELLOW Urine Clarity CLOUDY H Urine pH 7.5 Ur Specific [place] 1.010 Urine Protein NEGATIVE Urine Glucose (UA) NEGATIVE Urine Ketones NEGATIVE Urine Blood MODERATE H Urine Nitrate POSITIVE H Urine Bilirubin NEGATIVE Urine Urobilinogen 0.2 Ur Leukocyte Esterase LARGE H Urine RBC 5-10 H Urine WBC 50-100 H Ur Epithelial Cells FEW Urine Bacteria MANY H - Radiology Results Results: Chest x-ray shows increased interstitial markings, cardiomegaly calcification of the aortic arch, - EKG Interpretations Rate & Rhythm: normal sinus rhythm with a rate of 67 [place]: left axis deviation Comments:: Left ventricular hypertrophy; right bundle-branch block and 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 Is Septic Shock (SBP<90, OR Lactate>4 mmol\L) present?: No ED Reassessment (Disposition) - Reassessment Reassessment Condition:: Unchanged - Diagnosis Diagnosis:: Hypokalemia; urinary tract infection; depression - Aftercare/Follow up Instructions Aftercare/Follow-Up Instructions:: Refer to Discharge Instructions - Patient Disposition Admitted to:: [facility] Spoke to:: Eulalio Sears Admitting Medical Physician:: Eulalio Sears Admitting Psych Physician:: Pavel Mckenzie Condition at Disposition:: Stable, Unchanged
[2017-09-05 14:47] LABS: % EOSINOPHILS 1.8 % (0.0-5.0); % LYMPHOCYTES 23.7 % (20.0-50.0); % NEUTROPHILS 69.5 % (40.0-80.0); EOSINOPHILE ABSOLUTE 0.2 Th/cmm (0.1-0.4); HEMATOCRIT 28.1 % (41.0-60); HEMOGLOBIN 9.2 gm/dL (12-16); LYMPHOCYTE ABSOLUTE 2.2 Th/cmm (1.5-3.0); MEAN CELL VOLUME 87.6 fl (81-100); MEAN CORPUSCULAR HEMOGLOBIN 28.8 pg (27.0-31.0); MEAN CORPUSCULAR HGB CONC 32.9 pg (28.0-36.0); MEAN PLATELET VOLUME 8.7 fl; MONOCYTE ABSOLUTE 0.5 Th/cmm (0.3-1.0); NEUTROPHILE ABSOLUTE 6.4 Th/cmm (1.8-8.0); PLATELET COUNT 251 Th/cmm (150-400); RED BLOOD COUNT 3.21 Mil/cmm (3.80-5.20); WHITE BLOOD COUNT 9.3 Th/cmm (4.8-10.8)
[2017-09-05 15:01] LABS: ANION GAP 8.6 (7.0-16.0); BUN - UREA NITROGEN 6 mg/dL (7-25); CALCIUM SERUM 9.2 mg/dL (8.6-10.3); CARBON DIOXIDE 35.7 mEq/L (21.0-31.0); CHLORIDE 93 mEq/L (98-107); CREATININE - SERUM 0.4 mg/dL (0.6-1.2); GLUCOSE 102 mg/dL (70-105); POTASSIUM SERUM 3.3 mEq/L (3.5-5.1); SODIUM SERUM 134 mEq/L (136-145)
[2017-09-05] MEDS ORDERED: Acetaminophen 500 MG TAB PO STA (15:32)
[2017-09-05 15:38] LABS: URINE MICROSCOPIC INDICATED? YES; URINE SOURCE CATH
[2017-09-05] MEDS ORDERED: Acetaminophen 500 MG TAB ONE (15:38)
[2017-09-05 15:42] LABS: URINE BILIRUBIN NEGATIVE (NEGATIVE); URINE BLOOD MODERATE (NEGATIVE); URINE GLUCOSE (UA) NEGATIVE (NEGATIVE); URINE KETONE NEGATIVE (NEGATIVE); URINE LEUKOCYTE ESTERASE LARGE (NEGATIVE); URINE NITRATE POSITIVE (NEGATIVE); URINE PH 7.5 (4.6 - 8.0); URINE PROTEIN NEGATIVE (NEGATIVE); URINE UROBILINOGEN 0.2 E.U./dL (0.2 - 1.0)
[2017-09-05 15:48] LABS: URINE CLARITY CLOUDY (CLEAR); URINE COLOR YELLOW
[2017-09-05 16:00] LABS: URINE BACTERIA MANY /hpf (NONE SEEN); URINE EPITHELIAL CELLS FEW /lpf (FEW); URINE WBC 50-100 /hpf (0-5)
[2017-09-05] MEDS ORDERED: Potassium Chloride 20 mEq ER Tab PO ONE ×2 (16:37→16:52)
[2017-09-05 18:13] LABS: ALBUMIN 3.1 gm/dL (3.7-5.3); BILIRUBIN,TOTAL 0.4 mg/dL (0.3-1.0); TOTAL PROTEIN,SERUM 5.9 gm/dL (6.0-8.3)
[2017-09-05 19:43] LABS: A1C % 4.4 % (4.0-6.0)
[2017-09-05 19:48] VITALS: BP 122/74
[2017-09-05] MEDS ORDERED: Maalox 30 mL Cup PO PRN (20:40)
[2017-09-05] MEDS ORDERED: Fleet Enema 135 mL RC PRN (20:40)
[2017-09-05] MEDS ORDERED: Non-Formulary Item 1 EA (Zolpidem Tartrate [Ambien] 10 MG) PO SCH (21:00)
[2017-09-05] MEDS: Saline 0.65% Nasal Spray NS SCH (21:41)
[2017-09-05] MEDS: Albuterol/Ipratropium Neb 3 ML AERS HHN SCH (23:49)
[2017-09-06] MEDS: Albuterol/Ipratropium Neb 3 ML AERS HHN SCH ×5 (03:41→18:55)
--- NOTE | 2017-09-06 08:43 | Diagnostic Imaging Report ---
Exam: Chest portable HISTORY: ALOC Findings: Portable examination of the chest at 1442 hours reviewed compared to the prior study of 08/23/2017 demonstrates cardiomegaly. There is a opacification of the left costophrenic angle suggestive of effusion left basilar infiltrate cannot be excluded. Degenerative changes of left shoulder joint is noted.: Right shoulder prosthesis is noted. There is evidence of mild congestion. IMPRESSION: 1. Cardiomegaly, mild congestion Obliteration of left costophrenic angle small effusion cannot excluded clinical correlation recommended.
--- NOTE | 2017-09-06 08:45 | Diagnostic Imaging Report ---
Exam: CT examination of the chest. HISTORY: Altered ALOC Total DLP equals 467 CTDI equals 12.4 Findings: Multiple contiguous thin section of the chest were obtained from a thoracic outlet to the upper abdomen without the administration of contrast material, no prior studies available comparison. The study demonstrates cardiomegaly. Atherosclerotic vascular calcifications are noted. There is evidence for mild atelectatic changes in the left base is pleural thickening Chronic fibrotic scarring right apex appreciated. The aorta is calcified. The soft tissue structures midline the heart is enlarged. Bony structures unremarkable for degenerative osteoporotic changes of the thoracic spine. Postsurgical changes with total right shoulder prosthesis appreciated. Examination of the upper abdomen demonstrates distended gallbladder with calculi consistent with cholelithiasis. IMPRESSION: Cardiomegaly atherosclerotic vascular calcifications Atelectatic changes in the bases pleural thickening left base Cholelithiasis
--- NOTE | 2017-09-06 08:56 | Diagnostic Imaging Report ---
CT scan of the brain without intravenous contrast HISTORY: Altered mental state Total DLP equals 706 CTDI equals 37.4 COMPARISON: 05/30/2016 Axial sections were obtained from the base of the skull to the vertex. There is prominence/enlargement of the ventricular system size. Associated enlargement of cerebral sulci and subarachnoid cisterns. Findings are consistent with changes of generalized cerebral atrophy. No acute parenchymal abnormalities. No acute cerebral hemorrhage. Hypodensity is seen within the supratentorial white matter regions without mass effect. The findings may be associated with chronic small vessel ischemic disease. No extra-axial masses or abnormal fluid collections. IMPRESSION: 1. No acute abnormalities 2. Cerebral atrophy 3. Supratentorial white matter changes that may reflect chronic small vessel ischemic disease
[2017-09-06] MEDS ORDERED: Non-Formulary Item 1 EA (Cranberry Fruit Concentrate [Cranberry] 450 MG) PO SCH (09:00)
[2017-09-06] MEDS: Aspirin 81mg Chewable Tab PO SCH (09:40)
[2017-09-06] MEDS: Ferrous Sulfate 325 MG TAB PO SCH (09:40)
[2017-09-06] MEDS: Lactobacillus Rhamnosus GG 15 Billion CFU CAP.SPRINK PO SCH (09:40)
[2017-09-06] MEDS: fentaNYL 75 mcg/hr Tdm Patch TD SCH (09:51)
[2017-09-06] MEDS: Polyvinyl Alcohol Ophth Soln 15 mL Bottle EACH EYE SCH (09:56)
[2017-09-06] MEDS: Saline 0.65% Nasal Spray NS SCH ×2 (09:57→21:08)
[2017-09-06] MEDS ORDERED: Potassium Chloride 20 mEq ER Tab PO ONE (17:27)
--- NOTE | 2017-09-06 19:41 | History & Physical ---
ADMIT DATE: 09/06/2017 HISTORY OF PRESENT ILLNESS: The patient is an 81-year-old female with long history of hypertension, hyperlipidemia, degenerative joint disease, chronic pain, dementia, psychosis, admitted to [facility] for evaluation and treatment. The patient has been very agitated, psychotic. She denies any chest pain, shortness of breath, nausea, vomiting, fever or chills. PAST MEDICAL HISTORY: Significant for hyperlipidemia, hypertension, degenerative joint disease, dementia, and psychosis. PAST SURGICAL HISTORY: No recent surgery. ALLERGIES: None. MEDICATIONS: Follow admission reconciliation. SOCIAL HISTORY: No smoking, no alcohol, no drug. FAMILY HISTORY: Noncontributory. REVIEW OF SYSTEMS: RENAL SYSTEM: No history of chronic renal disorder. CARDIOVASCULAR: She has history of hypertension. ENDOCRINE: No diabetes or thyroid problem. GASTROINTESTINAL: No upper or lower gastrointestinal bleed. NEUROLOGICAL: No seizure disorder. MUSCULOSKELETAL: She has degenerative joint disease. RESPIRATORY: No asthma. HEMATOLOGIC: Has chronic anemia. GENITOURINARY: Has urinary tract infection. PHYSICAL EXAMINATION: GENERAL: She is awake, not coherent. VITAL SIGNS: Temperature 97.5, heart rate 76, blood pressure 92/42. HEENT: Normocephalic. Pupils reacting to light and accommodation. Sclerae are clear. NECK: Supple. Negative for lymphadenopathy, JVD or bruit. CHEST: Bilateral normal. No rhonchi or wheezing. HEART: S1, S2 normal. No murmur, gallop, or rub. ABDOMEN: Soft, bowel sounds positive. EXTREMITIES: No edema. NEUROLOGIC: She is awake, not coherent. She has no focal, motor, or sensory deficits. LABORATORY DATA: White blood cell 9.3, hemoglobin 9.0, hematocrit 28.1, and platelet is 251. Sodium 134, potassium 3.3, BUN is 6, creatinine 0.4. Urinalysis positive for white blood cell 5200. ASSESSMENT: 1. Urinary tract infection. 2. Hypertension. 3. Hyperlipidemia. 4. Degenerative joint disease. 5. Dementia. 6. Psychosis. 7. Chronic anemia. PLAN: The patient was admitted to [facility] under Dr. Mckenzie's service. Medical problems to address during hospitalization are psychosis, dementia, urinary tract infection, ___. Medical problems to address at discharge are hypertension, hyperlipidemia, degenerative joint disease, pain management. The patient is cleared for activity. Thank you Dr. Mckenzie for asking me to see your patient. JOB# [id number]
--- NOTE | 2017-09-06 20:13 | Psychosocial Evaluation ---
DATE OF SERVICE: 09/06/2017 PSYCHIATRIC INITIAL EVALUATION AND MENTAL STATUS EXAM AGE: 81. SEX: Female. PHYSICIAN: Dr. Mckenzie. CHIEF COMPLAINT: Confusion and irritability. HISTORY OF PRESENT ILLNESS: The patient is an 81-year-old female who was admitted to the hospital from [facility] because of increased confusion and agitation. The patient also has been having difficulty following directions. She also has been suspicious and paranoid about others. Also, has disorganized thoughts. In the Emergency Room, the patient was diagnosed with urinary tract infection. PAST PSYCHIATRIC HISTORY: The patient has history of depression and the patient is taking Lexapro and trazodone. PAST MEDICAL HISTORY: The patient diagnosed with urinary tract infection in the Emergency Room. The patient also has hypertension, COPD, and obesity. SOCIAL HISTORY: The patient lives in [facility]. No known alcohol or drug use. ALLERGIES: No known allergies. MENTAL STATUS EXAMINATION: The patient appears her stated age. Disheveled. Anxious. Confused. Thought processes are disorganized. The patient also seems to be suspicious and paranoid. The patient denied any suicidal or homicidal ideations. The patient is alert x 2. Poor insight and poor judgment. ASSESSMENT: PRIMARY DIAGNOSIS: Depressive mood disorder, unspecified, with psychotic features. MEDICAL DIAGNOSIS: Chronic obstructive pulmonary disease. Hypertension. Urinary tract infection. TREATMENT PLAN: Continue to monitor her behavior and condition closely. Also, continue to adjust psychotropic medications and continue for the time being, Lexapro and the trazodone. ESTIMATED LENGTH OF STAY: 7-10 days. CRITERIA FOR DISCHARGE: The patient will be less confused and adjusting psychotropic medications. The patient also will return to [facility]. [facility]# [id number]
[2017-09-06] MEDS ORDERED: Non-Formulary Item 1 EA (Melatonin [Melatonin] 6 MG) PO SCH (21:00)
[2017-09-06] MEDS: Atorvastatin Calcium 10 MG TAB PO SCH (21:08)
[2017-09-07] MEDS: Albuterol/Ipratropium Neb 3 ML AERS HHN SCH ×5 (06:38→18:41)
[2017-09-07] MEDS: Aspirin 81mg Chewable Tab PO SCH (08:17)
[2017-09-07] MEDS: Ferrous Sulfate 325 MG TAB PO SCH (08:18)
[2017-09-07] MEDS: Lactobacillus Rhamnosus GG 15 Billion CFU CAP.SPRINK PO SCH (08:19)
[2017-09-07] MEDS: Polyvinyl Alcohol Ophth Soln 15 mL Bottle EACH EYE SCH (10:00)
[2017-09-07] MEDS: Saline 0.65% Nasal Spray NS SCH ×2 (10:00→20:48)
--- NOTE | 2017-09-07 11:41 | Internal Medicine Prog Note ---
Internal Medicine Subjective - Subjective Service Date: 09/07/17 Patient seen and examined:: with staff (SHE HAS MOUTH PAIN) Patient is:: awake, verbal, in bed, talking, confused Per staff patient has:: no adverse event Internal Medicine Objective - Results Result Diagrams: 09/05/17 14:38 09/05/17 14:38 Recent Labs: Laboratory Last Values WBC 9.3 Th/cmm (4.8-10.8) 09/05/17 14:38 RBC 3.21 Mil/cmm (3.80-5.20) L 09/05/17 14:38 Hgb 9.2 gm/dL (12-16) L 09/05/17 14:38 Hct 28.1 % (41.0-60) L 09/05/17 14:38 MCV 87.6 fl (81-100) 09/05/17 14:38 MCH 28.8 pg (27.0-31.0) 09/05/17 14:38 MCHC Differential 32.9 pg (28.0-36.0) 09/05/17 14:38 RDW 15.0 % (11.5-20.0) 09/05/17 14:38 Plt Count 251 Th/cmm (150-400) 09/05/17 14:38 MPV 8.7 fl 09/05/17 14:38 Neutrophils % 69.5 % (40.0-80.0) 09/05/17 14:38 Lymphocytes % 23.7 % (20.0-50.0) 09/05/17 14:38 Monocytes % 5.0 % (2.0-10.0) 09/05/17 14:38 Eosinophils % 1.8 % (0.0-5.0) 09/05/17 14:38 Basophils % 0.0 % (0.0-2.0) 09/05/17 14:38 Sodium 134 mEq/L (136-145) L 09/05/17 14:38 Potassium 3.3 mEq/L (3.5-5.1) L 09/05/17 14:38 Chloride 93 mEq/L (98-107) L 09/05/17 14:38 Carbon Dioxide 35.7 mEq/L (21.0-31.0) H 09/05/17 14:38 Anion Gap 8.6 (7.0-16.0) 09/05/17 14:38 BUN 6 mg/dL (7-25) L 09/05/17 14:38 Creatinine 0.4 mg/dL (0.6-1.2) L 09/05/17 14:38 Est GFR ( Amer) TNP 09/05/17 14:38 Est GFR (Non-Af Amer) TNP 09/05/17 14:38 BUN/Creatinine Ratio 15.0 09/05/17 14:38 Glucose 102 mg/dL (70-105) 09/05/17 14:38 Hemoglobin A1c % 4.4 % (4.0-6.0) 09/05/17 14:38 Calcium 9.2 mg/dL (8.6-10.3) 09/05/17 14:38 Total Bilirubin 0.4 mg/dL (0.3-1.0) 09/05/17 14:38 AST 12 U/L (13-39) L 09/05/17 14:38 ALT 4 U/L (7-52) L 09/05/17 14:38 Alkaline Phosphatase 97 U/L (34-104) 09/05/17 14:38 Total Protein 5.9 gm/dL (6.0-8.3) L 09/05/17 14:38 Albumin 3.1 gm/dL (3.7-5.3) L 09/05/17 14:38 Triglycerides 73 mg/dL (<150) 09/05/17 14:38 Cholesterol 132 mg/dL (<200) 09/05/17 14:38 LDL Cholesterol Direct 70 mg/dL (75-193) L 09/05/17 14:38 HDL Cholesterol 40 mg/dL (23-92) 09/05/17 14:38 TSH 0.60 uIU/ml (0.34-5.60) 09/05/17 14:38 Urine Source CATH 09/05/17 15:09 Urine Color YELLOW 09/05/17 15:09 Urine Clarity CLOUDY (CLEAR) H 09/05/17 15:09 Urine pH 7.5 (4.6 - 8.0) 09/05/17 15:09 Ur Specific [place] 1.010 (1.005-1.030) 09/05/17 15:09 Urine Protein NEGATIVE mg/dL (NEGATIVE) 09/05/17 15:09 Urine Glucose (UA) NEGATIVE mg/dL (NEGATIVE) 09/05/17 15:09 Urine Ketones NEGATIVE mg/dL (NEGATIVE) 09/05/17 15:09 Urine Blood MODERATE (NEGATIVE) H 09/05/17 15:09 Urine Nitrate POSITIVE (NEGATIVE) H 09/05/17 15:09 Urine Bilirubin NEGATIVE (NEGATIVE) 09/05/17 15:09 Urine Urobilinogen 0.2 E.U./dL (0.2 - 1.0) 09/05/17 15:09 Ur Leukocyte Esterase LARGE (NEGATIVE) H 09/05/17 15:09 Urine RBC 5-10 /hpf (0-5) H 09/05/17 15:09 Urine WBC 50-100 /hpf (0-5) H 09/05/17 15:09 Ur Epithelial Cells FEW /lpf (FEW) 09/05/17 15:09 Urine Bacteria MANY /hpf (NONE SEEN) H 09/05/17 15:09 RPR NONREACTIVE (NONREACTIVE) 09/05/17 14:38 - Physical Exam Vitals and I&O: Vital Signs Temp 97.9 F 09/06/17 20:38 Pulse 76 09/07/17 10:30 Resp 16 09/07/17 10:30 BP 115/64 09/07/17 08:15 Pulse Ox 97 09/07/17 10:30 Intake & Output 09/06/17 09/07/17 09/07/17 18:59 06:59 18:59 Intake Total 1300 240 Balance 1300 240 Intake: Oral 1300 240 Other: # Voids 3 1 # Bowel Movements 0 Active Medications: Current Medications Acetaminophen (Tylenol) 650 mg PO Q6H PRN PRN Reason: mild pain Stop: 11/04/17 20:39 Al Hydrox/Mg Hydrox/Simethicone (Maalox) 30 ml PO Q6HR PRN PRN Reason: Upset Stomach / Indigestion Stop: 11/04/17 20:39 Albuterol/Ipratropium (Duoneb Neb) 3 ml HHN [id number] [facility] Stop: 11/05/17 06:59 Last Admin: 09/07/17 10:28 Dose: 3 ml Artificial Tears (Artificial Tears Ophth Soln) 1 drop EACH EYE DAILY [facility] Stop: 11/05/17 08:59 Last Admin: 09/07/17 10:00 Dose: 1 drop Aspirin (Aspirin Chewable) 81 mg PO DAILY [facility] Stop: 11/05/17 08:59 Last Admin: 09/07/17 08:17 Dose: 81 mg Atorvastatin Calcium (Lipitor) 20 mg PO HS [facility]; Protocol Stop: 11/05/17 20:59 Last Admin: 09/06/17 21:08 Dose: 20 mg Bisacodyl (Dulcolax 10 Mg Supp) 10 mg RC DAILY PRN PRN Reason: no bm x3 days Stop: 11/04/17 20:39 Carvedilol (Coreg) 3.125 mg PO BID [facility] Stop: 11/05/17 08:59 Last Admin: 09/07/17 08:13 Dose: Not Given Clotrimazole (Lotrimin 1% Cream) 1 appl TP DAILY [facility] Stop: 11/05/17 08:59 Last Admin: 09/07/17 08:18 Dose: 1 appl Diphenhydramine HCl (Benadryl) 25 mg PO Q6H PRN PRN Reason: Itching Stop: 11/04/17 20:39 Docusate Sodium (Colace) 250 mg PO BID [facility] Stop: 11/05/17 08:59 Last Admin: 09/07/17 08:18 Dose: 250 mg Escitalopram Oxalate (Lexapro) 20 mg PO HS [facility]; Protocol Stop: 11/05/17 20:59 Last Admin: 09/06/17 21:07 Dose: 20 mg Famotidine (Pepcid) 40 mg PO DAILY [facility] Stop: 11/05/17 08:59 Last Admin: 09/07/17 08:18 Dose: 40 mg Fentanyl (Duragesic 75 Mcg/Hr Tdm Patch) 1 patch TD Q72HR [facility]; Protocol Stop: 11/05/17 08:59 Last Admin: 09/06/17 09:51 Dose: 1 patch Ferrous Sulfate (Iron) 325 mg PO DAILY [facility] Stop: 11/05/17 08:59 Last Admin: 09/07/17 08:18 Dose: 325 mg Furosemide (Lasix) 20 mg PO BID [facility] Stop: 11/05/17 08:59 Last Admin: 09/07/17 08:15 Dose: 20 mg Ketotifen Fumarate (Zaditor 0.025% Ophth Soln) 1 drop EACH EYE DAILY [facility] Stop: 11/05/17 08:59 Last Admin: 09/07/17 08:19 Dose: 1 drop Lactobacillus Rhamnosus (Culturelle 15b) 1 each PO DAILY [facility] Stop: 11/05/17 08:59 Last Admin: 09/07/17 08:19 Dose: 1 each Linezolid (Zyvox) 600 mg PO Q12HR [facility] Stop: 09/09/17 21:01 Last Admin: 09/07/17 09:59 Dose: 600 mg Lorazepam (Ativan) 0.5 mg PO BID PRN; Protocol PRN Reason: Anxiety Stop: 11/04/17 20:39 Miscellaneous (Melatonin [Melatonin]) 6 mg PO HS [facility] Stop: 11/05/17 20:59 Mupirocin (Bactroban Oint) 1 appl NS BID [facility] Stop: 11/06/17 08:59 Last Admin: 09/07/17 09:59 Dose: 1 appl Ondansetron HCl (Zofran Odt) 4 mg PO Q12H PRN PRN Reason: Nausea / Vomiting Stop: 11/04/17 20:39 Oxycodone HCl (Oxycontin) 10 mg PO Q12H PRN PRN Reason: Pain (Severe) Stop: 11/04/17 21:59 Last Admin: 09/06/17 16:10 Dose: 10 mg Sodium Chloride ([place] Nasal [place]) 1 spr NS Q12HR [facility] Stop: 11/04/17 20:59 Last Admin: 09/07/17 10:00 Dose: 1 spr Sodium Phosphate (Fleet Enema) 135 ml RC DAILY PRN PRN Reason: If Dulcolax ineffective Stop: 11/04/17 20:39 Trazodone HCl (Desyrel) 50 mg PO HS [facility]; Protocol Stop: 11/04/17 20:59 Last Admin: 09/06/17 21:07 Dose: 50 mg Zolpidem Tartrate (Ambien) 5 mg PO HS PRN PRN Reason: Insomnia Stop: 11/04/17 20:59 Last Admin: 09/06/17 21:08 Dose: 5 mg General: demented HEENT: NC/AT, PERRLA, EOMI, anicteric sclerae, throat clear Neck: Supple, No JVD, No thyromegaly, +2 carotid pulse wo bruit, No LAD Lungs: CTAB Cardiovascular: RRR, Normal S1, Normal S2, without murmur Abdomen: soft, non-tender, non-distended Neurological: no change Internal Medicine Assmt/Plan - Assessment Assessment: 1.UTI. 2.HTN. 3.HYPERLIPIDEMIA. 4.DEMENTIA. - Plan Plan: LIDOCAINE VISCOUS 10 CC SWASH AND SPIT.
[2017-09-07] MEDS: Atorvastatin Calcium 10 MG TAB PO SCH (20:46)
--- NOTE | 2017-09-08 06:47 | Progress Notes ---
DATE: SUBJECTIVE: Chart reviewed and the patient interviewed. Also discussed the patient's condition with the staff and reviewed records and labs. The patient is still confused and she is forgetful. The patient also is still actively hallucinating and still has disorganized thoughts. Also, she seems to be suspicious and paranoid. Otherwise, the patient is compliant with taking her medications with no side effect of medications. ASSESSMENT: The patient is still confused and psychotic. TREATMENT PLAN: Continue to monitor her behavior and condition closely. Also, continue to work on agitation and irritability and continue to follow up closely. JOB# [id number]
[2017-09-08] MEDS: Albuterol/Ipratropium Neb 3 ML AERS HHN SCH ×4 (07:12→19:14)
[2017-09-08] MEDS: Lactobacillus Rhamnosus GG 15 Billion CFU CAP.SPRINK PO SCH (09:23)
[2017-09-08] MEDS: Ferrous Sulfate 325 MG TAB PO SCH (09:23)
[2017-09-08] MEDS: Aspirin 81mg Chewable Tab PO SCH (09:24)
[2017-09-08] MEDS: Polyvinyl Alcohol Ophth Soln 15 mL Bottle EACH EYE SCH (09:29)
[2017-09-08] MEDS: Saline 0.65% Nasal Spray NS SCH ×2 (09:30→20:35)
--- NOTE | 2017-09-08 15:19 | Internal Medicine Prog Note ---
Internal Medicine Subjective - Subjective Service Date: 09/08/17 Patient seen and examined:: with staff Patient is:: awake, verbal, in bed, talking, confused Per staff patient has:: no adverse event Internal Medicine Objective - Results Result Diagrams: 09/05/17 14:38 09/05/17 14:38 Recent Labs: Laboratory Last Values WBC 9.3 Th/cmm (4.8-10.8) 09/05/17 14:38 RBC 3.21 Mil/cmm (3.80-5.20) L 09/05/17 14:38 Hgb 9.2 gm/dL (12-16) L 09/05/17 14:38 Hct 28.1 % (41.0-60) L 09/05/17 14:38 MCV 87.6 fl (81-100) 09/05/17 14:38 MCH 28.8 pg (27.0-31.0) 09/05/17 14:38 MCHC Differential 32.9 pg (28.0-36.0) 09/05/17 14:38 RDW 15.0 % (11.5-20.0) 09/05/17 14:38 Plt Count 251 Th/cmm (150-400) 09/05/17 14:38 MPV 8.7 fl 09/05/17 14:38 Neutrophils % 69.5 % (40.0-80.0) 09/05/17 14:38 Lymphocytes % 23.7 % (20.0-50.0) 09/05/17 14:38 Monocytes % 5.0 % (2.0-10.0) 09/05/17 14:38 Eosinophils % 1.8 % (0.0-5.0) 09/05/17 14:38 Basophils % 0.0 % (0.0-2.0) 09/05/17 14:38 Sodium 134 mEq/L (136-145) L 09/05/17 14:38 Potassium 3.3 mEq/L (3.5-5.1) L 09/05/17 14:38 Chloride 93 mEq/L (98-107) L 09/05/17 14:38 Carbon Dioxide 35.7 mEq/L (21.0-31.0) H 09/05/17 14:38 Anion Gap 8.6 (7.0-16.0) 09/05/17 14:38 BUN 6 mg/dL (7-25) L 09/05/17 14:38 Creatinine 0.4 mg/dL (0.6-1.2) L 09/05/17 14:38 Est GFR ( Amer) TNP 09/05/17 14:38 Est GFR (Non-Af Amer) TNP 09/05/17 14:38 BUN/Creatinine Ratio 15.0 09/05/17 14:38 Glucose 102 mg/dL (70-105) 09/05/17 14:38 Hemoglobin A1c % 4.4 % (4.0-6.0) 09/05/17 14:38 Calcium 9.2 mg/dL (8.6-10.3) 09/05/17 14:38 Total Bilirubin 0.4 mg/dL (0.3-1.0) 09/05/17 14:38 AST 12 U/L (13-39) L 09/05/17 14:38 ALT 4 U/L (7-52) L 09/05/17 14:38 Alkaline Phosphatase 97 U/L (34-104) 09/05/17 14:38 Total Protein 5.9 gm/dL (6.0-8.3) L 09/05/17 14:38 Albumin 3.1 gm/dL (3.7-5.3) L 09/05/17 14:38 Triglycerides 73 mg/dL (<150) 09/05/17 14:38 Cholesterol 132 mg/dL (<200) 09/05/17 14:38 LDL Cholesterol Direct 70 mg/dL (75-193) L 09/05/17 14:38 HDL Cholesterol 40 mg/dL (23-92) 09/05/17 14:38 TSH 0.60 uIU/ml (0.34-5.60) 09/05/17 14:38 Urine Source CATH 09/05/17 15:09 Urine Color YELLOW 09/05/17 15:09 Urine Clarity CLOUDY (CLEAR) H 09/05/17 15:09 Urine pH 7.5 (4.6 - 8.0) 09/05/17 15:09 Ur Specific [place] 1.010 (1.005-1.030) 09/05/17 15:09 Urine Protein NEGATIVE mg/dL (NEGATIVE) 09/05/17 15:09 Urine Glucose (UA) NEGATIVE mg/dL (NEGATIVE) 09/05/17 15:09 Urine Ketones NEGATIVE mg/dL (NEGATIVE) 09/05/17 15:09 Urine Blood MODERATE (NEGATIVE) H 09/05/17 15:09 Urine Nitrate POSITIVE (NEGATIVE) H 09/05/17 15:09 Urine Bilirubin NEGATIVE (NEGATIVE) 09/05/17 15:09 Urine Urobilinogen 0.2 E.U./dL (0.2 - 1.0) 09/05/17 15:09 Ur Leukocyte Esterase LARGE (NEGATIVE) H 09/05/17 15:09 Urine RBC 5-10 /hpf (0-5) H 09/05/17 15:09 Urine WBC 50-100 /hpf (0-5) H 09/05/17 15:09 Ur Epithelial Cells FEW /lpf (FEW) 09/05/17 15:09 Urine Bacteria MANY /hpf (NONE SEEN) H 09/05/17 15:09 RPR NONREACTIVE (NONREACTIVE) 09/05/17 14:38 - Physical Exam Vitals and I&O: Vital Signs Temp 98.8 F 09/08/17 14:49 Pulse 76 09/08/17 14:49 Resp 20 09/08/17 14:49 BP 112/65 09/08/17 14:49 Pulse Ox 99 09/08/17 14:49 Intake & Output 09/07/17 09/08/17 09/08/17 18:59 06:59 18:59 Intake Total 120 Balance 120 Intake: Oral 120 Other: # Voids 3 Active Medications: Current Medications Acetaminophen (Tylenol) 650 mg PO Q6H PRN PRN Reason: mild pain Stop: 11/04/17 20:39 Al Hydrox/Mg Hydrox/Simethicone (Maalox) 30 ml PO Q6HR PRN PRN Reason: Upset Stomach / Indigestion Stop: 11/04/17 20:39 Albuterol/Ipratropium (Duoneb Neb) 3 ml HHN [id number] [facility] Stop: 11/05/17 06:59 Last Admin: 09/08/17 14:43 Dose: 3 ml Artificial Tears (Artificial Tears Ophth Soln) 1 drop EACH EYE DAILY [facility] Stop: 11/05/17 08:59 Last Admin: 09/08/17 09:29 Dose: 1 drop Aspirin (Aspirin Chewable) 81 mg PO DAILY [facility] Stop: 11/05/17 08:59 Last Admin: 09/08/17 09:24 Dose: 81 mg Atorvastatin Calcium (Lipitor) 20 mg PO HS [facility]; Protocol Stop: 11/05/17 20:59 Last Admin: 09/07/17 20:46 Dose: 20 mg Bisacodyl (Dulcolax 10 Mg Supp) 10 mg RC DAILY PRN PRN Reason: no bm x3 days Stop: 11/04/17 20:39 Carvedilol (Coreg) 3.125 mg PO BID [facility] Stop: 11/05/17 08:59 Last Admin: 09/08/17 09:24 Dose: 3.125 mg Clotrimazole (Lotrimin 1% Cream) 1 appl TP DAILY [facility] Stop: 11/05/17 08:59 Last Admin: 09/08/17 09:26 Dose: 1 appl Diphenhydramine HCl (Benadryl) 25 mg PO Q6H PRN PRN Reason: Itching Stop: 11/04/17 20:39 Docusate Sodium (Colace) 250 mg PO BID [facility] Stop: 11/05/17 08:59 Last Admin: 09/08/17 09:21 Dose: 250 mg Escitalopram Oxalate (Lexapro) 20 mg PO HS [facility]; Protocol Stop: 11/05/17 20:59 Last Admin: 09/07/17 20:47 Dose: 20 mg Famotidine (Pepcid) 40 mg PO DAILY [facility] Stop: 11/05/17 08:59 Last Admin: 09/08/17 09:25 Dose: 40 mg Fentanyl (Duragesic 75 Mcg/Hr Tdm Patch) 1 patch TD Q72HR [facility]; Protocol Stop: 11/05/17 08:59 Last Admin: 09/06/17 09:51 Dose: 1 patch Ferrous Sulfate (Iron) 325 mg PO DAILY [facility] Stop: 11/05/17 08:59 Last Admin: 09/08/17 09:23 Dose: 325 mg Furosemide (Lasix) 20 mg PO BID [facility] Stop: 11/05/17 08:59 Last Admin: 09/08/17 09:22 Dose: 20 mg Ketotifen Fumarate (Zaditor 0.025% Oph Soln) 1 drop EACH EYE DAILY [facility] Stop: 11/05/17 08:59 Last Admin: 09/08/17 09:28 Dose: 1 drop Lactobacillus Rhamnosus (Culturelle 15b) 1 each PO DAILY [facility] Stop: 11/05/17 08:59 Last Admin: 09/08/17 09:23 Dose: 1 each Linezolid (Zyvox) 600 mg PO Q12HR [facility] Stop: 11/06/17 20:59 Lorazepam (Ativan) 0.5 mg PO BID PRN; Protocol PRN Reason: Anxiety Stop: 11/04/17 20:39 Mupirocin (Bactroban Oint) 1 appl NS BID [facility] Stop: 11/06/17 08:59 Last Admin: 09/08/17 09:29 Dose: 1 appl Nystatin (Nystatin) 500,000 units PO TID [facility] Stop: 11/06/17 20:59 Last Admin: 09/08/17 09:29 Dose: 500,000 units Ondansetron HCl (Zofran Odt) 4 mg PO Q12H PRN PRN Reason: Nausea / Vomiting Stop: 11/04/17 20:39 Oxycodone HCl (Oxycontin) 10 mg PO Q12H PRN PRN Reason: Pain (Severe) Stop: 11/04/17 21:59 Last Admin: 09/07/17 14:20 Dose: 10 mg Sodium Chloride ([place] Nasal [place]) 1 spr NS Q12HR [facility] Stop: 11/04/17 20:59 Last Admin: 09/08/17 09:30 Dose: 1 spr Sodium Phosphate (Fleet Enema) 135 ml RC DAILY PRN PRN Reason: If Dulcolax ineffective Stop: 11/04/17 20:39 Trazodone HCl (Desyrel) 50 mg PO HS [facility]; Protocol Stop: 11/04/17 20:59 Last Admin: 09/07/17 20:48 Dose: 50 mg Zolpidem Tartrate (Ambien) 5 mg PO HS PRN PRN Reason: Insomnia Stop: 11/04/17 20:59 Last Admin: 09/07/17 20:49 Dose: 5 mg General: demented HEENT: NC/AT, PERRLA, EOMI, anicteric sclerae, throat clear Neck: Supple, No JVD, No thyromegaly, +2 carotid pulse wo bruit, No LAD Lungs: CTAB Cardiovascular: RRR, Normal S1, Normal S2, without murmur Abdomen: soft, non-tender, non-distended Neurological: no change Internal Medicine Assmt/Plan - Assessment Assessment: 1.UTI. 2.HTN. 3.HYPERLIPIDEMIA. 4.DEMENTIA. - Plan Plan: CONTINUE ON CURRENT MEDICATION AND DIET.
[2017-09-08] MEDS: Atorvastatin Calcium 10 MG TAB PO SCH (20:35)
--- NOTE | 2017-09-09 00:05 | Progress Notes ---
DATE: 09/08/2017 SUBJECTIVE: Chart reviewed and the patient interviewed. Also discussed the patient's condition with the staff and reviewed records and labs. The patient is still confused. The patient also is forgetful. Also, the patient has disorganized thoughts. Otherwise, the patient is compliant with taking her medications with no side effects of medications. ASSESSMENT: The patient is still confused and psychotic. TREATMENT PLAN: Continue to monitor her behavior and her condition closely. Also, continue adjusting psychotropic medications and followup. [facility]# [id number]
[2017-09-09] MEDS: Albuterol/Ipratropium Neb 3 ML AERS HHN SCH ×4 (06:24→19:16)
[2017-09-09] MEDS: Aspirin 81mg Chewable Tab PO SCH (08:55)
[2017-09-09] MEDS: Lactobacillus Rhamnosus GG 15 Billion CFU CAP.SPRINK PO SCH (08:56)
[2017-09-09] MEDS: Saline 0.65% Nasal Spray NS SCH ×2 (09:18→20:33)
[2017-09-09] MEDS: Polyvinyl Alcohol Ophth Soln 15 mL Bottle EACH EYE SCH (09:42)
[2017-09-09] MEDS: Ferrous Sulfate 325 MG TAB PO SCH (09:42)
[2017-09-09] MEDS: fentaNYL 75 mcg/hr Tdm Patch TD SCH (09:49)
--- NOTE | 2017-09-09 17:16 | Internal Medicine Prog Note ---
Internal Medicine Subjective - Subjective Service Date: 09/09/17 Patient seen and examined:: with staff (she is doing better) Patient is:: awake, verbal, in bed, talking, confused Per staff patient has:: no adverse event Internal Medicine Objective - Results Result Diagrams: 09/05/17 14:38 09/05/17 14:38 Recent Labs: Laboratory Last Values WBC 9.3 Th/cmm (4.8-10.8) 09/05/17 14:38 RBC 3.21 Mil/cmm (3.80-5.20) L 09/05/17 14:38 Hgb 9.2 gm/dL (12-16) L 09/05/17 14:38 Hct 28.1 % (41.0-60) L 09/05/17 14:38 MCV 87.6 fl (81-100) 09/05/17 14:38 MCH 28.8 pg (27.0-31.0) 09/05/17 14:38 MCHC Differential 32.9 pg (28.0-36.0) 09/05/17 14:38 RDW 15.0 % (11.5-20.0) 09/05/17 14:38 Plt Count 251 Th/cmm (150-400) 09/05/17 14:38 MPV 8.7 fl 09/05/17 14:38 Neutrophils % 69.5 % (40.0-80.0) 09/05/17 14:38 Lymphocytes % 23.7 % (20.0-50.0) 09/05/17 14:38 Monocytes % 5.0 % (2.0-10.0) 09/05/17 14:38 Eosinophils % 1.8 % (0.0-5.0) 09/05/17 14:38 Basophils % 0.0 % (0.0-2.0) 09/05/17 14:38 Sodium 134 mEq/L (136-145) L 09/05/17 14:38 Potassium 3.3 mEq/L (3.5-5.1) L 09/05/17 14:38 Chloride 93 mEq/L (98-107) L 09/05/17 14:38 Carbon Dioxide 35.7 mEq/L (21.0-31.0) H 09/05/17 14:38 Anion Gap 8.6 (7.0-16.0) 09/05/17 14:38 BUN 6 mg/dL (7-25) L 09/05/17 14:38 Creatinine 0.4 mg/dL (0.6-1.2) L 09/05/17 14:38 Est GFR ( Amer) TNP 09/05/17 14:38 Est GFR (Non-Af Amer) TNP 09/05/17 14:38 BUN/Creatinine Ratio 15.0 09/05/17 14:38 Glucose 102 mg/dL (70-105) 09/05/17 14:38 Hemoglobin A1c % 4.4 % (4.0-6.0) 09/05/17 14:38 Calcium 9.2 mg/dL (8.6-10.3) 09/05/17 14:38 Total Bilirubin 0.4 mg/dL (0.3-1.0) 09/05/17 14:38 AST 12 U/L (13-39) L 09/05/17 14:38 ALT 4 U/L (7-52) L 09/05/17 14:38 Alkaline Phosphatase 97 U/L (34-104) 09/05/17 14:38 Total Protein 5.9 gm/dL (6.0-8.3) L 09/05/17 14:38 Albumin 3.1 gm/dL (3.7-5.3) L 09/05/17 14:38 Triglycerides 73 mg/dL (<150) 09/05/17 14:38 Cholesterol 132 mg/dL (<200) 09/05/17 14:38 LDL Cholesterol Direct 70 mg/dL (75-193) L 09/05/17 14:38 HDL Cholesterol 40 mg/dL (23-92) 09/05/17 14:38 TSH 0.60 uIU/ml (0.34-5.60) 09/05/17 14:38 Urine Source CATH 09/05/17 15:09 Urine Color YELLOW 09/05/17 15:09 Urine Clarity CLOUDY (CLEAR) H 09/05/17 15:09 Urine pH 7.5 (4.6 - 8.0) 09/05/17 15:09 Ur Specific [place] 1.010 (1.005-1.030) 09/05/17 15:09 Urine Protein NEGATIVE mg/dL (NEGATIVE) 09/05/17 15:09 Urine Glucose (UA) NEGATIVE mg/dL (NEGATIVE) 09/05/17 15:09 Urine Ketones NEGATIVE mg/dL (NEGATIVE) 09/05/17 15:09 Urine Blood MODERATE (NEGATIVE) H 09/05/17 15:09 Urine Nitrate POSITIVE (NEGATIVE) H 09/05/17 15:09 Urine Bilirubin NEGATIVE (NEGATIVE) 09/05/17 15:09 Urine Urobilinogen 0.2 E.U./dL (0.2 - 1.0) 09/05/17 15:09 Ur Leukocyte Esterase LARGE (NEGATIVE) H 09/05/17 15:09 Urine RBC 5-10 /hpf (0-5) H 09/05/17 15:09 Urine WBC 50-100 /hpf (0-5) H 09/05/17 15:09 Ur Epithelial Cells FEW /lpf (FEW) 09/05/17 15:09 Urine Bacteria MANY /hpf (NONE SEEN) H 09/05/17 15:09 RPR NONREACTIVE (NONREACTIVE) 09/05/17 14:38 - Physical Exam Vitals and I&O: Vital Signs Temp 97.8 F 09/09/17 16:03 Pulse 64 09/09/17 16:03 Resp 18 09/09/17 16:03 BP 138/80 09/09/17 16:03 Pulse Ox 96 09/09/17 16:03 Intake & Output 09/08/17 09/09/17 09/09/17 18:59 06:59 18:59 Intake Total 120 Output Total 0 Balance 0 120 Intake: Oral 120 Output: Stool 0 Other: # Voids 5 3 Active Medications: Current Medications Acetaminophen (Tylenol) 650 mg PO Q6H PRN PRN Reason: mild pain Stop: 11/04/17 20:39 Al Hydrox/Mg Hydrox/Simethicone (Maalox) 30 ml PO Q6HR PRN PRN Reason: Upset Stomach / Indigestion Stop: 11/04/17 20:39 Albuterol/Ipratropium (Duoneb Neb) 3 ml HHN [id number] GOPAL Stop: 11/05/17 06:59 Last Admin: 09/09/17 14:52 Dose: 3 ml Artificial Tears (Artificial Tears Ophth Soln) 1 drop EACH EYE DAILY [facility] Stop: 11/05/17 08:59 Last Admin: 09/08/17 09:29 Dose: 1 drop Aspirin (Aspirin Chewable) 81 mg PO DAILY [facility] Stop: 11/05/17 08:59 Last Admin: 09/09/17 08:55 Dose: 81 mg Atorvastatin Calcium (Lipitor) 20 mg PO HS GOPAL; Protocol Stop: 11/05/17 20:59 Last Admin: 09/08/17 20:35 Dose: 20 mg Bisacodyl (Dulcolax 10 Mg Supp) 10 mg RC DAILY PRN PRN Reason: no bm x3 days Stop: 11/04/17 20:39 Carvedilol (Coreg) 3.125 mg PO BID [facility] Stop: 11/05/17 08:59 Last Admin: 09/09/17 08:56 Dose: 3.125 mg Clotrimazole (Lotrimin 1% Cream) 1 appl TP DAILY [facility] Stop: 11/05/17 08:59 Last Admin: 09/09/17 08:59 Dose: 1 appl Diphenhydramine HCl (Benadryl) 25 mg PO Q6H PRN PRN Reason: Itching Stop: 11/04/17 20:39 Docusate Sodium (Colace) 250 mg PO BID [facility] Stop: 11/05/17 08:59 Last Admin: 09/09/17 08:55 Dose: 250 mg Escitalopram Oxalate (Lexapro) 20 mg PO HS [facility]; Protocol Stop: 11/05/17 20:59 Last Admin: 09/08/17 20:35 Dose: 20 mg Famotidine (Pepcid) 40 mg PO DAILY [facility] Stop: 11/05/17 08:59 Last Admin: 09/09/17 08:55 Dose: 40 mg Fentanyl (Duragesic 75 Mcg/Hr Tdm Patch) 1 patch TD Q72HR [facility]; Protocol Stop: 11/05/17 08:59 Last Admin: 09/06/17 09:51 Dose: 1 patch Ferrous Sulfate (Iron) 325 mg PO DAILY [facility] Stop: 11/05/17 08:59 Last Admin: 09/08/17 09:23 Dose: 325 mg Furosemide (Lasix) 20 mg PO BID [facility] Stop: 11/05/17 08:59 Last Admin: 09/09/17 08:55 Dose: 20 mg Ketotifen Fumarate (Zaditor 0.025% [employer]) 1 drop EACH EYE DAILY [facility] Stop: 11/05/17 08:59 Last Admin: 09/08/17 09:28 Dose: 1 drop Lactobacillus Rhamnosus (Culturelle 15b) 1 each PO DAILY [facility] Stop: 11/05/17 08:59 Last Admin: 09/09/17 08:56 Dose: 1 each Lorazepam (Ativan) 0.5 mg PO BID PRN; Protocol PRN Reason: Anxiety Stop: 11/04/17 20:39 Mupirocin (Bactroban Oint) 1 appl NS BID [facility] Stop: 11/06/17 08:59 Last Admin: 09/08/17 17:28 Dose: 1 appl Nystatin (Nystatin) 500,000 units PO TID [facility] Stop: 11/06/17 20:59 Last Admin: 09/08/17 20:34 Dose: 500,000 units Ondansetron HCl (Zofran Odt) 4 mg PO Q12H PRN PRN Reason: Nausea / Vomiting Stop: 11/04/17 20:39 Oxycodone HCl (Oxycontin) 10 mg PO Q12H PRN PRN Reason: Pain (Severe) Stop: 11/04/17 21:59 Last Admin: 09/07/17 14:20 Dose: 10 mg Sodium Chloride ([place] Nasal [place]) 1 spr NS Q12HR [facility] Stop: 11/04/17 20:59 Last Admin: 09/08/17 20:35 Dose: 1 spr Sodium Phosphate (Fleet Enema) 135 ml RC DAILY PRN PRN Reason: If Dulcolax ineffective Stop: 11/04/17 20:39 Trazodone HCl (Desyrel) 50 mg PO HS [facility]; Protocol Stop: 11/04/17 20:59 Last Admin: 09/08/17 20:36 Dose: 50 mg Zolpidem Tartrate (Ambien) 5 mg PO HS PRN PRN Reason: Insomnia Stop: 11/04/17 20:59 Last Admin: 09/08/17 20:35 Dose: 5 mg General: demented HEENT: NC/AT, PERRLA, EOMI, anicteric sclerae, throat clear Neck: Supple, No JVD, No thyromegaly, +2 carotid pulse wo bruit, No LAD Lungs: CTAB Cardiovascular: RRR, Normal S1, Normal S2, without murmur Abdomen: soft, non-tender, non-distended Neurological: no change Internal Medicine Assmt/Plan - Assessment Assessment: 1.UTI. 2.HTN. 3.HYPERLIPIDEMIA. 4.DEMENTIA. - Plan Plan: CONTINUE ON CURRENT MEDICATION AND DIET. Nutritional Asmnt/Malnutr-PDOC - Dietary Evaluation Malnutrition Findings (Please click <Entered> for more info): Nutritional Asmnt/Malnutrition Start: 09/09/17 15: 56 Text: Status: Complete Freq: Protocol: Document 09/09/17 15:56 [facility] (Rec: 09/09/17 16:10 [email or web address]) Nutritional Asmnt/Malnutrition Patient General Information Nutritional Screening Low Risk Diagnosis depression Pertinent Medical Hx/Surgical Hx hyperlipidemia, HTn, DJD, dementia, psychosis Subjective Information Pt seen in bed having lunch at time of visit. Pt complained of month source and not able to put on denture. Pt only can eat the soup, pears, dinner roll and veggies. Offered other food, pt refused and stated she was not hungry. PO intake 25-50% over the past 2 days. Usually was 50-100%. Current Diet Order/ Nutrition Support regular Pertinent Medications colace, iron, lasix, culturelle Pertinent Labs 09/05 Na 134, K 3.3, Cl 93, BUN 6, Cr 0.4, glucose 102, A1c 4 .4 Nutritional Hx/Data Height 1.57 m Height (Calculated Centimeters) 157.5 Current Weight (lbs) 98.883 kg Weight (Calculated Kilograms) 98.9 Weight (Calculated Grams) 86696.1 [place] Body Weight 110 Body Mass Index (BMI) 39.9 Weight Status Obese GI Symptoms GI Symptoms None Last BM no BM on 09/06 Skin Integrity/Comment: Mark 17 Current %PO Poor (25-49%) Estimated Nutritional Goals BEE in Kcals: Adj wt of IBW Calories/Kcals/Kg 25-30 Kcals Calculated 2066-2630 Protein: Adj wt of IBW Protein g/k.8-1 Protein Calculated 50-62 Fluid: ml 1550-1860ml (1ml/kcal) Nutritional Problem 1. Problem Problem inadequate food intake Etiology chowing difficulty without denture d/t month sour Signs/Symptoms: PO intake 25-50% Malnutrition Alert Is there a minimum of two criteria No selected? Query Text:Check all the applicable criteria. A minimum of two criteria are recommended for diagnosis of either severe or non-severe malnutrition. Malnutrition Related to Morbid Obesity Malnutrition related to morbid obesity No Intervention/Recommendation Comments 1. Spoke wtih RN Aroldo, keep monitor diet tolerance. If pt not able to use denture and not tolerate diet, consider requestion alternatives. 2. Monitor PO intake, wt, labs and skin integrity 3. F/U as moderate risk in 3-5 days, 09/12-09/14, PO check Expected Outcomes/Goals Expected Outcomes/Goals 1. PO intake to meet at least 75% of nutritional needs. 2. Wt stability, skin to remain intact, labs to approach WNL.
[2017-09-09] MEDS: Atorvastatin Calcium 10 MG TAB PO SCH (20:25)
--- NOTE | 2017-09-10 03:54 | Progress Notes ---
DATE: Chart reviewed and the patient interviewed. Also discussed the patient's condition with the staff and reviewed records and labs. The patient is still argumentative and is still in angry and irritable mood. The patient also is still depressed. The patient also is still feeling hopeless and interacting minimally with others. Otherwise, the patient has continued to take Lexapro 20 mg every day with no side effects. ASSESSMENT: The patient is still depressed and in irritable mood. TREATMENT PLAN: Continue to monitor her behavior and her condition closely. Also, continue to work on her ineffective coping and we will continue to follow up. JOB# [id number]
[2017-09-10] MEDS: Albuterol/Ipratropium Neb 3 ML AERS HHN SCH ×4 (06:57→19:17)
[2017-09-10] MEDS: Ferrous Sulfate 325 MG TAB PO SCH (08:35)
[2017-09-10] MEDS: Aspirin 81mg Chewable Tab PO SCH (08:35)
[2017-09-10] MEDS: Lactobacillus Rhamnosus GG 15 Billion CFU CAP.SPRINK PO SCH (08:35)
[2017-09-10] MEDS: Polyvinyl Alcohol Ophth Soln 15 mL Bottle EACH EYE SCH (08:38)
[2017-09-10] MEDS: Saline 0.65% Nasal Spray NS SCH ×2 (08:39→20:35)
--- NOTE | 2017-09-10 19:34 | Progress Notes ---
DATE: SUBJECTIVE: Chart reviewed and the patient interviewed. Also discussed the patient's condition with the staff and reviewed records and labs. The patient is still demanding and she is still calling for nurse without needing any specific thing. She also is still argumentative, angry and irritable, easily agitated. She also at other times is depressed and wants to be left alone. She is compliant with taking her medication with no side effect of medications. ASSESSMENT: The patient is still irritable and agitated. TREATMENT PLAN: We will continue Lexapro 20 mg every day. Also, continue to monitor her behavior and continue to follow up closely. JOB# [id number]
[2017-09-10] MEDS: Atorvastatin Calcium 10 MG TAB PO SCH (20:35)
--- NOTE | 2017-09-10 20:39 | Internal Medicine Prog Note ---
Internal Medicine Subjective - Subjective Service Date: 09/10/17 Patient seen and examined:: with staff Patient is:: awake, verbal, in bed, talking, confused Per staff patient has:: no adverse event Internal Medicine Objective - Results Result Diagrams: 09/05/17 14:38 09/05/17 14:38 Recent Labs: Laboratory Last Values WBC 9.3 Th/cmm (4.8-10.8) 09/05/17 14:38 RBC 3.21 Mil/cmm (3.80-5.20) L 09/05/17 14:38 Hgb 9.2 gm/dL (12-16) L 09/05/17 14:38 Hct 28.1 % (41.0-60) L 09/05/17 14:38 MCV 87.6 fl (81-100) 09/05/17 14:38 MCH 28.8 pg (27.0-31.0) 09/05/17 14:38 MCHC Differential 32.9 pg (28.0-36.0) 09/05/17 14:38 RDW 15.0 % (11.5-20.0) 09/05/17 14:38 Plt Count 251 Th/cmm (150-400) 09/05/17 14:38 MPV 8.7 fl 09/05/17 14:38 Neutrophils % 69.5 % (40.0-80.0) 09/05/17 14:38 Lymphocytes % 23.7 % (20.0-50.0) 09/05/17 14:38 Monocytes % 5.0 % (2.0-10.0) 09/05/17 14:38 Eosinophils % 1.8 % (0.0-5.0) 09/05/17 14:38 Basophils % 0.0 % (0.0-2.0) 09/05/17 14:38 Sodium 134 mEq/L (136-145) L 09/05/17 14:38 Potassium 3.3 mEq/L (3.5-5.1) L 09/05/17 14:38 Chloride 93 mEq/L (98-107) L 09/05/17 14:38 Carbon Dioxide 35.7 mEq/L (21.0-31.0) H 09/05/17 14:38 Anion Gap 8.6 (7.0-16.0) 09/05/17 14:38 BUN 6 mg/dL (7-25) L 09/05/17 14:38 Creatinine 0.4 mg/dL (0.6-1.2) L 09/05/17 14:38 Est GFR ( Amer) TNP 09/05/17 14:38 Est GFR (Non-Af Amer) TNP 09/05/17 14:38 BUN/Creatinine Ratio 15.0 09/05/17 14:38 Glucose 102 mg/dL (70-105) 09/05/17 14:38 Hemoglobin A1c % 4.4 % (4.0-6.0) 09/05/17 14:38 Calcium 9.2 mg/dL (8.6-10.3) 09/05/17 14:38 Total Bilirubin 0.4 mg/dL (0.3-1.0) 09/05/17 14:38 AST 12 U/L (13-39) L 09/05/17 14:38 ALT 4 U/L (7-52) L 09/05/17 14:38 Alkaline Phosphatase 97 U/L (34-104) 09/05/17 14:38 Total Protein 5.9 gm/dL (6.0-8.3) L 09/05/17 14:38 Albumin 3.1 gm/dL (3.7-5.3) L 09/05/17 14:38 Triglycerides 73 mg/dL (<150) 09/05/17 14:38 Cholesterol 132 mg/dL (<200) 09/05/17 14:38 LDL Cholesterol Direct 70 mg/dL (75-193) L 09/05/17 14:38 HDL Cholesterol 40 mg/dL (23-92) 09/05/17 14:38 TSH 0.60 uIU/ml (0.34-5.60) 09/05/17 14:38 Urine Source CATH 09/05/17 15:09 Urine Color YELLOW 09/05/17 15:09 Urine Clarity CLOUDY (CLEAR) H 09/05/17 15:09 Urine pH 7.5 (4.6 - 8.0) 09/05/17 15:09 Ur Specific [place] 1.010 (1.005-1.030) 09/05/17 15:09 Urine Protein NEGATIVE mg/dL (NEGATIVE) 09/05/17 15:09 Urine Glucose (UA) NEGATIVE mg/dL (NEGATIVE) 09/05/17 15:09 Urine Ketones NEGATIVE mg/dL (NEGATIVE) 09/05/17 15:09 Urine Blood MODERATE (NEGATIVE) H 09/05/17 15:09 Urine Nitrate POSITIVE (NEGATIVE) H 09/05/17 15:09 Urine Bilirubin NEGATIVE (NEGATIVE) 09/05/17 15:09 Urine Urobilinogen 0.2 E.U./dL (0.2 - 1.0) 09/05/17 15:09 Ur Leukocyte Esterase LARGE (NEGATIVE) H 09/05/17 15:09 Urine RBC 5-10 /hpf (0-5) H 09/05/17 15:09 Urine WBC 50-100 /hpf (0-5) H 09/05/17 15:09 Ur Epithelial Cells FEW /lpf (FEW) 09/05/17 15:09 Urine Bacteria MANY /hpf (NONE SEEN) H 09/05/17 15:09 RPR NONREACTIVE (NONREACTIVE) 09/05/17 14:38 - Physical Exam Vitals and I&O: Vital Signs Temp 97.6 F 09/10/17 15:06 Pulse 65 09/10/17 19:19 Resp 18 09/10/17 19:19 BP 108/61 09/10/17 16:19 Pulse Ox 95 09/10/17 19:19 Intake & Output 09/10/17 09/10/17 09/11/17 06:59 18:59 06:59 Intake Total 360 1300 Balance 360 1300 Intake: Oral 360 1300 Other: # Voids 2 3 # Bowel Movements 1 Stool Characteristics Soft Formed Active Medications: Current Medications Acetaminophen (Tylenol) 650 mg PO Q6H PRN PRN Reason: mild pain Stop: 11/04/17 20:39 Last Admin: 09/10/17 16:18 Dose: 650 mg Al Hydrox/Mg Hydrox/Simethicone (Maalox) 30 ml PO Q6HR PRN PRN Reason: Upset Stomach / Indigestion Stop: 11/04/17 20:39 Albuterol/Ipratropium (Duoneb Neb) 3 ml HHN [id number] GOPAL Stop: 11/05/17 06:59 Last Admin: 09/10/17 19:17 Dose: 3 ml Artificial Tears (Artificial Tears Ophth Soln) 1 drop EACH EYE DAILY [facility] Stop: 11/05/17 08:59 Last Admin: 09/10/17 08:38 Dose: 1 drop Aspirin (Aspirin Chewable) 81 mg PO DAILY [facility] Stop: 11/05/17 08:59 Last Admin: 09/10/17 08:35 Dose: 81 mg Atorvastatin Calcium (Lipitor) 20 mg PO HS [facility]; Protocol Stop: 11/05/17 20:59 Last Admin: 09/09/17 20:25 Dose: 20 mg Bisacodyl (Dulcolax 10 Mg Supp) 10 mg RC DAILY PRN PRN Reason: no bm x3 days Stop: 11/04/17 20:39 Carvedilol (Coreg) 3.125 mg PO BID [facility] Stop: 11/05/17 08:59 Last Admin: 09/10/17 16:19 Dose: 3.125 mg Clotrimazole (Lotrimin 1% Cream) 1 appl TP DAILY [facility] Stop: 11/05/17 08:59 Last Admin: 09/10/17 08:39 Dose: 1 appl Diphenhydramine HCl (Benadryl) 25 mg PO Q6H PRN PRN Reason: Itching Stop: 11/04/17 20:39 Docusate Sodium (Colace) 250 mg PO BID [facility] Stop: 11/05/17 08:59 Last Admin: 09/10/17 16:18 Dose: 250 mg Escitalopram Oxalate (Lexapro) 20 mg PO HS [facility]; Protocol Stop: 11/05/17 20:59 Last Admin: 09/09/17 20:26 Dose: 20 mg Famotidine (Pepcid) 40 mg PO DAILY [facility] Stop: 11/05/17 08:59 Last Admin: 09/10/17 08:35 Dose: 40 mg Fentanyl (Duragesic 75 Mcg/Hr Tdm Patch) 1 patch TD Q72HR [facility]; Protocol Stop: 11/05/17 08:59 Last Admin: 09/09/17 09:49 Dose: 1 patch Ferrous Sulfate (Iron) 325 mg PO DAILY [facility] Stop: 11/05/17 08:59 Last Admin: 09/10/17 08:35 Dose: 325 mg Furosemide (Lasix) 20 mg PO BID [facility] Stop: 11/05/17 08:59 Last Admin: 09/10/17 16:18 Dose: 20 mg Ketotifen Fumarate (Zaditor 0.025% [employer]n) 1 drop EACH EYE DAILY [facility] Stop: 11/05/17 08:59 Last Admin: 09/10/17 08:37 Dose: 1 drop Lactobacillus Rhamnosus (Culturelle 15b) 1 each PO DAILY [facility] Stop: 11/05/17 08:59 Last Admin: 09/10/17 08:35 Dose: 1 each Lorazepam (Ativan) 0.5 mg PO BID PRN; Protocol PRN Reason: Anxiety Stop: 11/04/17 20:39 Last Admin: 09/10/17 16:18 Dose: 0.5 mg Mupirocin (Bactroban Oint) 1 appl NS BID [facility] Stop: 11/06/17 08:59 Last Admin: 09/10/17 16:20 Dose: 1 appl Nystatin (Nystatin) 500,000 units PO TID [facility] Stop: 11/06/17 20:59 Last Admin: 09/10/17 15:00 Dose: 500,000 units Ondansetron HCl (Zofran Odt) 4 mg PO Q12H PRN PRN Reason: Nausea / Vomiting Stop: 11/04/17 20:39 Oxycodone HCl (Oxycontin) 10 mg PO Q12H PRN PRN Reason: Pain (Severe) Stop: 11/04/17 21:59 Last Admin: 09/07/17 14:20 Dose: 10 mg Sodium Chloride ([place] Nasal [place]) 1 spr NS Q12HR [facility] Stop: 11/04/17 20:59 Last Admin: 09/10/17 08:39 Dose: 1 spr Sodium Phosphate (Fleet Enema) 135 ml RC DAILY PRN PRN Reason: If Dulcolax ineffective Stop: 11/04/17 20:39 Trazodone HCl (Desyrel) 50 mg PO HS [facility]; Protocol Stop: 11/04/17 20:59 Last Admin: 09/09/17 20:26 Dose: 50 mg Zolpidem Tartrate (Ambien) 5 mg PO HS PRN PRN Reason: Insomnia Stop: 11/04/17 20:59 Last Admin: 09/09/17 20:26 Dose: 5 mg General: demented HEENT: NC/AT, PERRLA, EOMI, anicteric sclerae, throat clear Neck: Supple, No JVD, No thyromegaly, +2 carotid pulse wo bruit, No LAD Lungs: CTAB Cardiovascular: RRR, Normal S1, Normal S2, without murmur Abdomen: soft, non-tender, non-distended Neurological: no change Internal Medicine Assmt/Plan - Assessment Assessment: 1.UTI. 2.HTN. 3.HYPERLIPIDEMIA. 4.DEMENTIA. - Plan Plan: CONTINUE ON CURRENT MEDICATION AND DIET. Nutritional Asmnt/Malnutr-PDOC - Dietary Evaluation Malnutrition Findings (Please click <Entered> for more info): Nutritional Asmnt/Malnutrition Start: 09/09/17 15: 56 Text: Status: Complete Freq: Protocol: Document 09/09/17 15:56 [facility] (Rec: 09/09/17 16:10 [email or web address] [email or web address]) Nutritional Asmnt/Malnutrition Patient General Information Nutritional Screening Low Risk Diagnosis depression Pertinent Medical Hx/Surgical Hx hyperlipidemia, HTn, DJD, dementia, psychosis Subjective Information Pt seen in bed having lunch at time of visit. Pt complained of month source and not able to put on denture. Pt only can eat the soup, pears, dinner roll and veggies. Offered other food, pt refused and stated she was not hungry. PO intake 25-50% over the past 2 days. Usually was 50-100%. Pt is on linezolid noted, not appropriate for nutrition education of food and drug interaction d/t cognition status at this time. Current Diet Order/ Nutrition Support regular Pertinent Medications colace, iron, lasix, culturelle Pertinent Labs 09/05 Na 134, K 3.3, Cl 93, BUN 6, Cr 0.4, glucose 102, A1c 4 .4 Nutritional Hx/Data Height 1.57 m Height (Calculated Centimeters) 157.5 Current Weight (lbs) 98.883 kg Weight (Calculated Kilograms) 98.9 Weight (Calculated Grams) 10785.1 [place] Body Weight 110 Body Mass Index (BMI) 39.9 Weight Status Obese GI Symptoms GI Symptoms None Last BM no BM on 09/06 Skin Integrity/Comment: Mark 17 Current %PO Poor (25-49%) Estimated Nutritional Goals BEE in Kcals: Adj wt of IBW Calories/Kcals/Kg 25-30 Kcals Calculated 3990-8305 Protein: Adj wt of IBW Protein g/k.8-1 Protein Calculated 50-62 Fluid: ml 1550-1860ml (1ml/kcal) Nutritional Problem 1. Problem Problem inadequate food intake Etiology chowing difficulty without denture d/t month sour Signs/Symptoms: PO intake 25-50% Malnutrition Alert Is there a minimum of two criteria No selected? Query Text:Check all the applicable criteria. A minimum of two criteria are recommended for diagnosis of either severe or non-severe malnutrition. Malnutrition Related to Morbid Obesity Malnutrition related to morbid obesity No Intervention/Recommendation Comments 1. Spoke wtih RN Aroldo, keep monitor diet tolerance. If pt not able to use denture and not tolerate diet, consider requestion alternatives. 2. Monitor PO intake, wt, labs and skin integrity 3. F/U as moderate risk in 3-5 days, 09/12-09/14, PO check Expected Outcomes/Goals Expected Outcomes/Goals 1. PO intake to meet at least 75% of nutritional needs. 2. Wt stability, skin to remain intact, labs to approach WNL.
[2017-09-11] MEDS: Albuterol/Ipratropium Neb 3 ML AERS HHN SCH ×4 (07:47→18:45)
[2017-09-11] MEDS: Aspirin 81mg Chewable Tab PO SCH (10:51)
[2017-09-11] MEDS: Lactobacillus Rhamnosus GG 15 Billion CFU CAP.SPRINK PO SCH (10:51)
[2017-09-11] MEDS: Ferrous Sulfate 325 MG TAB PO SCH (10:51)
[2017-09-11] MEDS: Saline 0.65% Nasal Spray NS SCH ×2 (10:52→21:00)
[2017-09-11] MEDS: Polyvinyl Alcohol Ophth Soln 15 mL Bottle EACH EYE SCH (10:52)
[2017-09-11] MEDS: Atorvastatin Calcium 10 MG TAB PO SCH (20:06)
--- NOTE | 2017-09-11 20:34 | Internal Medicine Prog Note ---
Internal Medicine Subjective - Subjective Service Date: 09/11/17 Patient seen and examined:: with staff Patient is:: awake, verbal, in bed, talking, confused Per staff patient has:: no adverse event Internal Medicine Objective - Results Result Diagrams: 09/05/17 14:38 09/05/17 14:38 Recent Labs: Laboratory Last Values WBC 9.3 Th/cmm (4.8-10.8) 09/05/17 14:38 RBC 3.21 Mil/cmm (3.80-5.20) L 09/05/17 14:38 Hgb 9.2 gm/dL (12-16) L 09/05/17 14:38 Hct 28.1 % (41.0-60) L 09/05/17 14:38 MCV 87.6 fl (81-100) 09/05/17 14:38 MCH 28.8 pg (27.0-31.0) 09/05/17 14:38 MCHC Differential 32.9 pg (28.0-36.0) 09/05/17 14:38 RDW 15.0 % (11.5-20.0) 09/05/17 14:38 Plt Count 251 Th/cmm (150-400) 09/05/17 14:38 MPV 8.7 fl 09/05/17 14:38 Neutrophils % 69.5 % (40.0-80.0) 09/05/17 14:38 Lymphocytes % 23.7 % (20.0-50.0) 09/05/17 14:38 Monocytes % 5.0 % (2.0-10.0) 09/05/17 14:38 Eosinophils % 1.8 % (0.0-5.0) 09/05/17 14:38 Basophils % 0.0 % (0.0-2.0) 09/05/17 14:38 Sodium 134 mEq/L (136-145) L 09/05/17 14:38 Potassium 3.3 mEq/L (3.5-5.1) L 09/05/17 14:38 Chloride 93 mEq/L (98-107) L 09/05/17 14:38 Carbon Dioxide 35.7 mEq/L (21.0-31.0) H 09/05/17 14:38 Anion Gap 8.6 (7.0-16.0) 09/05/17 14:38 BUN 6 mg/dL (7-25) L 09/05/17 14:38 Creatinine 0.4 mg/dL (0.6-1.2) L 09/05/17 14:38 Est GFR ( Amer) TNP 09/05/17 14:38 Est GFR (Non-Af Amer) TNP 09/05/17 14:38 BUN/Creatinine Ratio 15.0 09/05/17 14:38 Glucose 102 mg/dL (70-105) 09/05/17 14:38 Hemoglobin A1c % 4.4 % (4.0-6.0) 09/05/17 14:38 Calcium 9.2 mg/dL (8.6-10.3) 09/05/17 14:38 Total Bilirubin 0.4 mg/dL (0.3-1.0) 09/05/17 14:38 AST 12 U/L (13-39) L 09/05/17 14:38 ALT 4 U/L (7-52) L 09/05/17 14:38 Alkaline Phosphatase 97 U/L (34-104) 09/05/17 14:38 Total Protein 5.9 gm/dL (6.0-8.3) L 09/05/17 14:38 Albumin 3.1 gm/dL (3.7-5.3) L 09/05/17 14:38 Triglycerides 73 mg/dL (<150) 09/05/17 14:38 Cholesterol 132 mg/dL (<200) 09/05/17 14:38 LDL Cholesterol Direct 70 mg/dL (75-193) L 09/05/17 14:38 HDL Cholesterol 40 mg/dL (23-92) 09/05/17 14:38 TSH 0.60 uIU/ml (0.34-5.60) 09/05/17 14:38 Urine Source CATH 09/05/17 15:09 Urine Color YELLOW 09/05/17 15:09 Urine Clarity CLOUDY (CLEAR) H 09/05/17 15:09 Urine pH 7.5 (4.6 - 8.0) 09/05/17 15:09 Ur Specific [place] 1.010 (1.005-1.030) 09/05/17 15:09 Urine Protein NEGATIVE mg/dL (NEGATIVE) 09/05/17 15:09 Urine Glucose (UA) NEGATIVE mg/dL (NEGATIVE) 09/05/17 15:09 Urine Ketones NEGATIVE mg/dL (NEGATIVE) 09/05/17 15:09 Urine Blood MODERATE (NEGATIVE) H 09/05/17 15:09 Urine Nitrate POSITIVE (NEGATIVE) H 09/05/17 15:09 Urine Bilirubin NEGATIVE (NEGATIVE) 09/05/17 15:09 Urine Urobilinogen 0.2 E.U./dL (0.2 - 1.0) 09/05/17 15:09 Ur Leukocyte Esterase LARGE (NEGATIVE) H 09/05/17 15:09 Urine RBC 5-10 /hpf (0-5) H 09/05/17 15:09 Urine WBC 50-100 /hpf (0-5) H 09/05/17 15:09 Ur Epithelial Cells FEW /lpf (FEW) 09/05/17 15:09 Urine Bacteria MANY /hpf (NONE SEEN) H 09/05/17 15:09 RPR NONREACTIVE (NONREACTIVE) 09/05/17 14:38 - Physical Exam Vitals and I&O: Vital Signs Temp 97.9 F 09/11/17 20:00 Pulse 77 09/11/17 20:00 Resp 20 09/11/17 20:00 BP 98/58 09/11/17 20:00 Pulse Ox 97 09/11/17 20:00 Intake & Output 09/11/17 09/11/17 09/12/17 06:59 18:59 06:59 Intake Total 360 1000 Output Total 2 Balance 358 1000 Intake: Oral 360 1000 Output: Stool 1 Urine/Stool Mix 1 Other: # Voids 2 3 # Bowel Movements 0 1 Stool Characteristics Soft Formed Active Medications: Current Medications Acetaminophen (Tylenol) 650 mg PO Q6H PRN PRN Reason: mild pain Stop: 11/04/17 20:39 Last Admin: 09/10/17 16:18 Dose: 650 mg Al Hydrox/Mg Hydrox/Simethicone (Maalox) 30 ml PO Q6HR PRN PRN Reason: Upset Stomach / Indigestion Stop: 11/04/17 20:39 Albuterol/Ipratropium (Duoneb Neb) 3 ml HHN [id number] GOPAL Stop: 11/05/17 06:59 Last Admin: 09/11/17 18:45 Dose: 3 ml Artificial Tears (Artificial Tears Ophth Soln) 1 drop EACH EYE DAILY [facility] Stop: 11/05/17 08:59 Last Admin: 09/11/17 10:52 Dose: 1 drop Aspirin (Aspirin Chewable) 81 mg PO DAILY [facility] Stop: 11/05/17 08:59 Last Admin: 09/11/17 10:51 Dose: 81 mg Atorvastatin Calcium (Lipitor) 20 mg PO HS GOPAL; Protocol Stop: 11/05/17 20:59 Last Admin: 09/11/17 20:06 Dose: 20 mg Bisacodyl (Dulcolax 10 Mg Supp) 10 mg RC DAILY PRN PRN Reason: no bm x3 days Stop: 11/04/17 20:39 Carvedilol (Coreg) 3.125 mg PO BID [facility] Stop: 11/05/17 08:59 Last Admin: 09/11/17 16:29 Dose: Not Given Clotrimazole (Lotrimin 1% Cream) 1 appl TP DAILY [facility] Stop: 11/05/17 08:59 Last Admin: 09/11/17 10:51 Dose: 1 appl Diphenhydramine HCl (Benadryl) 25 mg PO Q6H PRN PRN Reason: Itching Stop: 11/04/17 20:39 Docusate Sodium (Colace) 250 mg PO BID [facility] Stop: 11/05/17 08:59 Last Admin: 09/11/17 16:46 Dose: 250 mg Escitalopram Oxalate (Lexapro) 20 mg PO HS [facility]; Protocol Stop: 11/05/17 20:59 Last Admin: 09/11/17 20:08 Dose: 20 mg Famotidine (Pepcid) 40 mg PO DAILY [facility] Stop: 11/05/17 08:59 Last Admin: 09/11/17 10:51 Dose: 40 mg Fentanyl (Duragesic 75 Mcg/Hr Tdm Patch) 1 patch TD Q72HR [facility]; Protocol Stop: 11/05/17 08:59 Last Admin: 09/09/17 09:49 Dose: 1 patch Ferrous Sulfate (Iron) 325 mg PO DAILY [facility] Stop: 11/05/17 08:59 Last Admin: 09/11/17 10:51 Dose: 325 mg Furosemide (Lasix) 20 mg PO BID [facility] Stop: 11/05/17 08:59 Last Admin: 09/11/17 16:46 Dose: 20 mg Ketotifen Fumarate (Zaditor 0.025% Ophth Soln) 1 drop EACH EYE DAILY [facility] Stop: 11/05/17 08:59 Last Admin: 09/11/17 10:51 Dose: 1 drop Lactobacillus Rhamnosus (Culturelle 15b) 1 each PO DAILY [facility] Stop: 11/05/17 08:59 Last Admin: 09/11/17 10:51 Dose: 1 each Lorazepam (Ativan) 0.5 mg PO BID PRN; Protocol PRN Reason: Anxiety Stop: 11/04/17 20:39 Last Admin: 09/10/17 20:36 Dose: 0.5 mg Mupirocin (Bactroban Oint) 1 appl NS BID [facility] Stop: 11/06/17 08:59 Last Admin: 09/11/17 16:47 Dose: 1 appl Nystatin (Nystatin) 500,000 units PO TID [facility] Stop: 11/06/17 20:59 Last Admin: 09/11/17 13:54 Dose: 500,000 units Ondansetron HCl (Zofran Odt) 4 mg PO Q12H PRN PRN Reason: Nausea / Vomiting Stop: 11/04/17 20:39 Oxycodone HCl (Oxycontin) 10 mg PO Q12H PRN PRN Reason: Pain (Severe) Stop: 11/04/17 21:59 Last Admin: 09/11/17 17:44 Dose: 10 mg Sodium Chloride ([place] Nasal [place]) 1 spr NS Q12HR [facility] Stop: 11/04/17 20:59 Last Admin: 09/11/17 10:52 Dose: 1 spr Sodium Phosphate (Fleet Enema) 135 ml RC DAILY PRN PRN Reason: If Dulcolax ineffective Stop: 11/04/17 20:39 Trazodone HCl (Desyrel) 50 mg PO HS [facility]; Protocol Stop: 11/04/17 20:59 Last Admin: 09/11/17 20:08 Dose: 50 mg Zolpidem Tartrate (Ambien) 5 mg PO HS PRN PRN Reason: Insomnia Stop: 11/04/17 20:59 Last Admin: 09/11/17 20:08 Dose: 5 mg General: demented HEENT: NC/AT, PERRLA, EOMI, anicteric sclerae, throat clear Neck: Supple, No JVD, No thyromegaly, +2 carotid pulse wo bruit, No LAD Lungs: CTAB Cardiovascular: RRR, Normal S1, Normal S2, without murmur Abdomen: soft, non-tender, non-distended Neurological: no change Internal Medicine Assmt/Plan - Assessment Assessment: 1.UTI. 2.HTN. 3.HYPERLIPIDEMIA. 4.DEMENTIA. - Plan Plan: CONTINUE ON CURRENT MEDICATION AND DIET. Nutritional Asmnt/Malnutr-PDOC - Dietary Evaluation Malnutrition Findings (Please click <Entered> for more info): Nutritional Asmnt/Malnutrition Start: 09/09/17 15: 56 Text: Status: Complete Freq: Protocol: Document 09/09/17 15:56 [email or web address] (Rec: 09/09/17 16:10 RADHAG [email or web address]) Nutritional Asmnt/Malnutrition Patient General Information Nutritional Screening Low Risk Diagnosis depression Pertinent Medical Hx/Surgical Hx hyperlipidemia, HTn, DJD, dementia, psychosis Subjective Information Pt seen in bed having lunch at time of visit. Pt complained of month source and not able to put on denture. Pt only can eat the soup, pears, dinner roll and veggies. Offered other food, pt refused and stated she was not hungry. PO intake 25-50% over the past 2 days. Usually was 50-100%. Pt is on linezolid noted, not appropriate for nutrition education of food and drug interaction d/t cognition status at this time. Current Diet Order/ Nutrition Support regular Pertinent Medications colace, iron, lasix, culturelle Pertinent Labs 09/05 Na 134, K 3.3, Cl 93, BUN 6, Cr 0.4, glucose 102, A1c 4 .4 Nutritional Hx/Data Height 1.57 m Height (Calculated Centimeters) 157.5 Current Weight (lbs) 98.883 kg Weight (Calculated Kilograms) 98.9 Weight (Calculated Grams) 74024.1 [place] Body Weight 110 Body Mass Index (BMI) 39.9 Weight Status Obese GI Symptoms GI Symptoms None Last BM no BM on 09/06 Skin Integrity/Comment: Mark Ladd Current %PO Poor (25-49%) Estimated Nutritional Goals BEE in Kcals: Adj wt of IBW Calories/Kcals/Kg 25-30 Kcals Calculated 9411-8177 Protein: Adj wt of IBW Protein g/k.8-1 Protein Calculated 50-62 Fluid: ml 1550-1860ml (1ml/kcal) Nutritional Problem 1. Problem Problem inadequate food intake Etiology chowing difficulty without denture d/t month sour Signs/Symptoms: PO intake 25-50% Malnutrition Alert Is there a minimum of two criteria No selected? Query Text:Check all the applicable criteria. A minimum of two criteria are recommended for diagnosis of either severe or non-severe malnutrition. Malnutrition Related to Morbid Obesity Malnutrition related to morbid obesity No Intervention/Recommendation Comments 1. Spoke wtih RN Aroldo, keep monitor diet tolerance. If pt not able to use denture and not tolerate diet, consider requestion alternatives. 2. Monitor PO intake, wt, labs and skin integrity 3. F/U as moderate risk in 3-5 days, 09/12-09/14, PO check Expected Outcomes/Goals Expected Outcomes/Goals 1. PO intake to meet at least 75% of nutritional needs. 2. Wt stability, skin to remain intact, labs to approach WNL.
--- NOTE | 2017-09-11 23:12 | Progress Notes ---
DATE: 09/11/2017 SUBJECTIVE: Chart reviewed and the patient interviewed. Also discussed the patient's condition with the staff and reviewed records and labs. The patient remains isolative and is still withdrawn. The patient also remains in a depressed mood. Also, she wants to be left alone and less demanding. Otherwise, the patient continued to comply with taking her medications with no side effect of medications. ASSESSMENT: The patient is still depressed. TREATMENT PLAN: Continue Lexapro 20 mg every day. Also, continue to monitor her behavior and her condition closely. JOB# [id number]
[2017-09-12] MEDS: Albuterol/Ipratropium Neb 3 ML AERS HHN SCH ×4 (07:18→18:59)
[2017-09-12] MEDS: Ferrous Sulfate 325 MG TAB PO SCH (08:31)
[2017-09-12] MEDS: Saline 0.65% Nasal Spray NS SCH ×2 (08:31→22:06)
[2017-09-12] MEDS: Lactobacillus Rhamnosus GG 15 Billion CFU CAP.SPRINK PO SCH (08:31)
[2017-09-12] MEDS: Polyvinyl Alcohol Ophth Soln 15 mL Bottle EACH EYE SCH (08:31)
[2017-09-12] MEDS: Aspirin 81mg Chewable Tab PO SCH (08:32)
[2017-09-12] MEDS: fentaNYL 75 mcg/hr Tdm Patch TD SCH (13:59)
--- NOTE | 2017-09-12 19:17 | Internal Medicine Prog Note ---
Internal Medicine Subjective - Subjective Service Date: 09/12/17 Patient seen and examined:: with staff Patient is:: awake, verbal, in bed, talking, confused Per staff patient has:: no adverse event Internal Medicine Objective - Results Result Diagrams: 09/05/17 14:38 09/05/17 14:38 Recent Labs: Laboratory Last Values WBC 9.3 Th/cmm (4.8-10.8) 09/05/17 14:38 RBC 3.21 Mil/cmm (3.80-5.20) L 09/05/17 14:38 Hgb 9.2 gm/dL (12-16) L 09/05/17 14:38 Hct 28.1 % (41.0-60) L 09/05/17 14:38 MCV 87.6 fl (81-100) 09/05/17 14:38 MCH 28.8 pg (27.0-31.0) 09/05/17 14:38 MCHC Differential 32.9 pg (28.0-36.0) 09/05/17 14:38 RDW 15.0 % (11.5-20.0) 09/05/17 14:38 Plt Count 251 Th/cmm (150-400) 09/05/17 14:38 MPV 8.7 fl 09/05/17 14:38 Neutrophils % 69.5 % (40.0-80.0) 09/05/17 14:38 Lymphocytes % 23.7 % (20.0-50.0) 09/05/17 14:38 Monocytes % 5.0 % (2.0-10.0) 09/05/17 14:38 Eosinophils % 1.8 % (0.0-5.0) 09/05/17 14:38 Basophils % 0.0 % (0.0-2.0) 09/05/17 14:38 Sodium 134 mEq/L (136-145) L 09/05/17 14:38 Potassium 3.3 mEq/L (3.5-5.1) L 09/05/17 14:38 Chloride 93 mEq/L (98-107) L 09/05/17 14:38 Carbon Dioxide 35.7 mEq/L (21.0-31.0) H 09/05/17 14:38 Anion Gap 8.6 (7.0-16.0) 09/05/17 14:38 BUN 6 mg/dL (7-25) L 09/05/17 14:38 Creatinine 0.4 mg/dL (0.6-1.2) L 09/05/17 14:38 Est GFR ( Amer) TNP 09/05/17 14:38 Est GFR (Non-Af Amer) TNP 09/05/17 14:38 BUN/Creatinine Ratio 15.0 09/05/17 14:38 Glucose 102 mg/dL (70-105) 09/05/17 14:38 Hemoglobin A1c % 4.4 % (4.0-6.0) 09/05/17 14:38 Calcium 9.2 mg/dL (8.6-10.3) 09/05/17 14:38 Total Bilirubin 0.4 mg/dL (0.3-1.0) 09/05/17 14:38 AST 12 U/L (13-39) L 09/05/17 14:38 ALT 4 U/L (7-52) L 09/05/17 14:38 Alkaline Phosphatase 97 U/L (34-104) 09/05/17 14:38 Total Protein 5.9 gm/dL (6.0-8.3) L 09/05/17 14:38 Albumin 3.1 gm/dL (3.7-5.3) L 09/05/17 14:38 Triglycerides 73 mg/dL (<150) 09/05/17 14:38 Cholesterol 132 mg/dL (<200) 09/05/17 14:38 LDL Cholesterol Direct 70 mg/dL (75-193) L 09/05/17 14:38 HDL Cholesterol 40 mg/dL (23-92) 09/05/17 14:38 TSH 0.60 uIU/ml (0.34-5.60) 09/05/17 14:38 Urine Source CATH 09/05/17 15:09 Urine Color YELLOW 09/05/17 15:09 Urine Clarity CLOUDY (CLEAR) H 09/05/17 15:09 Urine pH 7.5 (4.6 - 8.0) 09/05/17 15:09 Ur Specific [place] 1.010 (1.005-1.030) 09/05/17 15:09 Urine Protein NEGATIVE mg/dL (NEGATIVE) 09/05/17 15:09 Urine Glucose (UA) NEGATIVE mg/dL (NEGATIVE) 09/05/17 15:09 Urine Ketones NEGATIVE mg/dL (NEGATIVE) 09/05/17 15:09 Urine Blood MODERATE (NEGATIVE) H 09/05/17 15:09 Urine Nitrate POSITIVE (NEGATIVE) H 09/05/17 15:09 Urine Bilirubin NEGATIVE (NEGATIVE) 09/05/17 15:09 Urine Urobilinogen 0.2 E.U./dL (0.2 - 1.0) 09/05/17 15:09 Ur Leukocyte Esterase LARGE (NEGATIVE) H 09/05/17 15:09 Urine RBC 5-10 /hpf (0-5) H 09/05/17 15:09 Urine WBC 50-100 /hpf (0-5) H 09/05/17 15:09 Ur Epithelial Cells FEW /lpf (FEW) 09/05/17 15:09 Urine Bacteria MANY /hpf (NONE SEEN) H 09/05/17 15:09 RPR NONREACTIVE (NONREACTIVE) 09/05/17 14:38 - Physical Exam Vitals and I&O: Vital Signs Temp 98.6 F 09/12/17 15:57 Pulse 78 09/12/17 15:57 Resp 20 09/12/17 15:57 BP 108/59 09/12/17 15:57 Pulse Ox 95 09/12/17 15:57 Intake & Output 09/12/17 09/12/17 09/13/17 06:59 18:59 06:59 Intake Total 120 1300 Balance 120 1300 Intake: Oral 120 1300 Other: # Voids 3 3 Active Medications: Current Medications Acetaminophen (Tylenol) 650 mg PO Q6H PRN PRN Reason: mild pain Stop: 11/04/17 20:39 Last Admin: 09/12/17 17:32 Dose: 650 mg Al Hydrox/Mg Hydrox/Simethicone (Maalox) 30 ml PO Q6HR PRN PRN Reason: Upset Stomach / Indigestion Stop: 11/04/17 20:39 Albuterol/Ipratropium (Duoneb Neb) 3 ml HHN [id number] GOPAL Stop: 11/05/17 06:59 Last Admin: 09/12/17 18:59 Dose: 3 ml Artificial Tears (Artificial Tears Ophth Soln) 1 drop EACH EYE DAILY [facility] Stop: 11/05/17 08:59 Last Admin: 09/12/17 08:31 Dose: 1 drop Aspirin (Aspirin Chewable) 81 mg PO DAILY [facility] Stop: 11/05/17 08:59 Last Admin: 09/12/17 08:32 Dose: 81 mg Atorvastatin Calcium (Lipitor) 20 mg PO HS [facility]; Protocol Stop: 11/05/17 20:59 Last Admin: 09/11/17 20:06 Dose: 20 mg Bisacodyl (Dulcolax 10 Mg Supp) 10 mg RC DAILY PRN PRN Reason: no bm x3 days Stop: 11/04/17 20:39 Carvedilol (Coreg) 3.125 mg PO BID [facility] Stop: 11/05/17 08:59 Last Admin: 09/12/17 17:20 Dose: Not Given Clotrimazole (Lotrimin 1% Cream) 1 appl TP DAILY [facility] Stop: 11/05/17 08:59 Last Admin: 09/12/17 08:31 Dose: 1 appl Diphenhydramine HCl (Benadryl) 25 mg PO Q6H PRN PRN Reason: Itching Stop: 11/04/17 20:39 Docusate Sodium (Colace) 250 mg PO BID [facility] Stop: 11/05/17 08:59 Last Admin: 09/12/17 17:25 Dose: Not Given Escitalopram Oxalate (Lexapro) 20 mg PO HS [facility]; Protocol Stop: 11/05/17 20:59 Last Admin: 09/11/17 20:08 Dose: 20 mg Famotidine (Pepcid) 40 mg PO DAILY [facility] Stop: 11/05/17 08:59 Last Admin: 09/12/17 08:32 Dose: 40 mg Fentanyl (Duragesic 75 Mcg/Hr Tdm Patch) 1 patch TD Q72HR [facility]; Protocol Stop: 11/05/17 08:59 Last Admin: 09/12/17 13:59 Dose: Not Given Ferrous Sulfate (Iron) 325 mg PO DAILY [facility] Stop: 11/05/17 08:59 Last Admin: 09/12/17 08:31 Dose: Not Given Furosemide (Lasix) 20 mg PO BID [facility] Stop: 11/05/17 08:59 Last Admin: 09/12/17 17:25 Dose: Not Given Ketotifen Fumarate ([facility]) 1 drop EACH EYE DAILY [facility] Stop: 11/05/17 08:59 Last Admin: 09/12/17 08:31 Dose: 1 drop Lactobacillus Rhamnosus (Culturelle 15b) 1 each PO DAILY [facility] Stop: 11/05/17 08:59 Last Admin: 09/12/17 08:31 Dose: 1 each Lorazepam (Ativan) 0.5 mg PO BID PRN; Protocol PRN Reason: Anxiety Stop: 11/04/17 20:39 Last Admin: 09/10/17 20:36 Dose: 0.5 mg Mupirocin (Bactroban Oint) 1 appl NS BID [facility] Stop: 11/06/17 08:59 Last Admin: 09/12/17 17:26 Dose: Not Given Nystatin (Nystatin) 500,000 units PO TID [facility] Stop: 11/06/17 20:59 Last Admin: 09/12/17 14:02 Dose: 500,000 units Ondansetron HCl (Zofran Odt) 4 mg PO Q12H PRN PRN Reason: Nausea / Vomiting Stop: 11/04/17 20:39 Oxycodone HCl (Oxycontin) 10 mg PO Q12H PRN PRN Reason: Pain (Severe) Stop: 11/04/17 21:59 Last Admin: 09/11/17 17:44 Dose: 10 mg Sodium Chloride ([place] Nasal [place]) 1 spr NS Q12HR [facility] Stop: 11/04/17 20:59 Last Admin: 09/12/17 08:31 Dose: 1 spr Sodium Phosphate (Fleet Enema) 135 ml RC DAILY PRN PRN Reason: If Dulcolax ineffective Stop: 11/04/17 20:39 Trazodone HCl (Desyrel) 50 mg PO HS [facility]; Protocol Stop: 11/04/17 20:59 Last Admin: 09/11/17 20:08 Dose: 50 mg Zolpidem Tartrate (Ambien) 5 mg PO HS PRN PRN Reason: Insomnia Stop: 11/04/17 20:59 Last Admin: 09/11/17 20:08 Dose: 5 mg General: demented HEENT: NC/AT, PERRLA, EOMI, anicteric sclerae, throat clear Neck: Supple, No JVD, No thyromegaly, +2 carotid pulse wo bruit, No LAD Lungs: CTAB Cardiovascular: RRR, Normal S1, Normal S2, without murmur Abdomen: soft, non-tender, non-distended Neurological: no change Internal Medicine Assmt/Plan - Assessment Assessment: 1.PSYCHOSIS 2.HTN. 3.HYPERLIPIDEMIA. 4.DEMENTIA. - Plan Plan: CONTINUE ON CURRENT MEDICATION AND DIET. Nutritional Asmnt/Malnutr-PDOC - Dietary Evaluation Malnutrition Findings (Please click <Entered> for more info): Nutritional Asmnt/Malnutrition Start: 09/09/17 15: 56 Text: Status: Complete Freq: Protocol: Document 09/09/17 15:56 HENG (Rec: 09/09/17 16:10 [facility] [email or web address]) Nutritional Asmnt/Malnutrition Patient General Information Nutritional Screening Low Risk Diagnosis depression Pertinent Medical Hx/Surgical Hx hyperlipidemia, HTn, DJD, dementia, psychosis Subjective Information Pt seen in bed having lunch at time of visit. Pt complained of month source and not able to put on denture. Pt only can eat the soup, pears, dinner roll and veggies. Offered other food, pt refused and stated she was not hungry. PO intake 25-50% over the past 2 days. Usually was 50-100%. Pt is on linezolid noted, not appropriate for nutrition education of food and drug interaction d/t cognition status at this time. Current Diet Order/ Nutrition Support regular Pertinent Medications colace, iron, lasix, culturelle Pertinent Labs 09/05 Na 134, K 3.3, Cl 93, BUN 6, Cr 0.4, glucose 102, A1c 4 .4 Nutritional Hx/Data Height 1.57 m Height (Calculated Centimeters) 157.5 Current Weight (lbs) 98.883 kg Weight (Calculated Kilograms) 98.9 Weight (Calculated Grams) 20299.1 [place] Body Weight 110 Body Mass Index (BMI) 39.9 Weight Status Obese GI Symptoms GI Symptoms None Last BM no BM on 09/06 Skin Integrity/Comment: Mark Ladd Current %PO Poor (25-49%) Estimated Nutritional Goals BEE in Kcals: Adj wt of IBW Calories/Kcals/Kg 25-30 Kcals Calculated 7334-0829 Protein: Adj wt of IBW Protein g/k.8-1 Protein Calculated 50-62 Fluid: ml 1550-1860ml (1ml/kcal) Nutritional Problem 1. Problem Problem inadequate food intake Etiology chowing difficulty without denture d/t month sour Signs/Symptoms: PO intake 25-50% Malnutrition Alert Is there a minimum of two criteria No selected? Query Text:Check all the applicable criteria. A minimum of two criteria are recommended for diagnosis of either severe or non-severe malnutrition. Malnutrition Related to Morbid Obesity Malnutrition related to morbid obesity No Intervention/Recommendation Comments 1. Spoke wtih RN Aroldo, keep monitor diet tolerance. If pt not able to use denture and not tolerate diet, consider requestion alternatives. 2. Monitor PO intake, wt, labs and skin integrity 3. F/U as moderate risk in 3-5 days, 09/12-09/14, PO check Expected Outcomes/Goals Expected Outcomes/Goals 1. PO intake to meet at least 75% of nutritional needs. 2. Wt stability, skin to remain intact, labs to approach WNL.
[2017-09-12] MEDS: Atorvastatin Calcium 10 MG TAB PO SCH (21:34)
--- NOTE | 2017-09-13 03:18 | Progress Notes ---
DATE: SUBJECTIVE: Chart reviewed and the patient interviewed. Also discussed the patient's condition with the staff and reviewed records and labs. The patient is still guarded and isolative. The patient also is still in a depressed mood. The patient also decreased demanding and not as irritable and she is still depressed and withdrawn and wants to be left alone. She is compliant with taking her medications with no side effects of medications. ASSESSMENT: The patient is still depressed and guarded and withdrawn. TREATMENT PLAN: We will continue monitoring her behavior and condition and continue to work on her ineffective coping and follow up closely. JOB# [id number]
[2017-09-13] MEDS: Albuterol/Ipratropium Neb 3 ML AERS HHN SCH ×4 (06:52→19:34)
[2017-09-13] MEDS: Polyvinyl Alcohol Ophth Soln 15 mL Bottle EACH EYE SCH (08:07)
[2017-09-13] MEDS: Saline 0.65% Nasal Spray NS SCH ×2 (08:07→21:00)
[2017-09-13] MEDS: Lactobacillus Rhamnosus GG 15 Billion CFU CAP.SPRINK PO SCH (08:08)
[2017-09-13] MEDS: Ferrous Sulfate 325 MG TAB PO SCH (08:09)
--- NOTE | 2017-09-13 14:32 | Internal Medicine Prog Note ---
Internal Medicine Subjective - Subjective Service Date: 09/13/17 Patient seen and examined:: with staff (she has pain,all joints) Patient is:: awake, verbal, in bed, talking, confused Per staff patient has:: no adverse event Internal Medicine Objective - Results Result Diagrams: 09/05/17 14:38 09/05/17 14:38 Recent Labs: Laboratory Last Values WBC 9.3 Th/cmm (4.8-10.8) 09/05/17 14:38 RBC 3.21 Mil/cmm (3.80-5.20) L 09/05/17 14:38 Hgb 9.2 gm/dL (12-16) L 09/05/17 14:38 Hct 28.1 % (41.0-60) L 09/05/17 14:38 MCV 87.6 fl (81-100) 09/05/17 14:38 MCH 28.8 pg (27.0-31.0) 09/05/17 14:38 MCHC Differential 32.9 pg (28.0-36.0) 09/05/17 14:38 RDW 15.0 % (11.5-20.0) 09/05/17 14:38 Plt Count 251 Th/cmm (150-400) 09/05/17 14:38 MPV 8.7 fl 09/05/17 14:38 Neutrophils % 69.5 % (40.0-80.0) 09/05/17 14:38 Lymphocytes % 23.7 % (20.0-50.0) 09/05/17 14:38 Monocytes % 5.0 % (2.0-10.0) 09/05/17 14:38 Eosinophils % 1.8 % (0.0-5.0) 09/05/17 14:38 Basophils % 0.0 % (0.0-2.0) 09/05/17 14:38 Sodium 134 mEq/L (136-145) L 09/05/17 14:38 Potassium 3.3 mEq/L (3.5-5.1) L 09/05/17 14:38 Chloride 93 mEq/L (98-107) L 09/05/17 14:38 Carbon Dioxide 35.7 mEq/L (21.0-31.0) H 09/05/17 14:38 Anion Gap 8.6 (7.0-16.0) 09/05/17 14:38 BUN 6 mg/dL (7-25) L 09/05/17 14:38 Creatinine 0.4 mg/dL (0.6-1.2) L 09/05/17 14:38 Est GFR ( Amer) TNP 09/05/17 14:38 Est GFR (Non-Af Amer) TNP 09/05/17 14:38 BUN/Creatinine Ratio 15.0 09/05/17 14:38 Glucose 102 mg/dL (70-105) 09/05/17 14:38 Hemoglobin A1c % 4.4 % (4.0-6.0) 09/05/17 14:38 Calcium 9.2 mg/dL (8.6-10.3) 09/05/17 14:38 Total Bilirubin 0.4 mg/dL (0.3-1.0) 09/05/17 14:38 AST 12 U/L (13-39) L 09/05/17 14:38 ALT 4 U/L (7-52) L 09/05/17 14:38 Alkaline Phosphatase 97 U/L (34-104) 09/05/17 14:38 Total Protein 5.9 gm/dL (6.0-8.3) L 09/05/17 14:38 Albumin 3.1 gm/dL (3.7-5.3) L 09/05/17 14:38 Triglycerides 73 mg/dL (<150) 09/05/17 14:38 Cholesterol 132 mg/dL (<200) 09/05/17 14:38 LDL Cholesterol Direct 70 mg/dL (75-193) L 09/05/17 14:38 HDL Cholesterol 40 mg/dL (23-92) 09/05/17 14:38 TSH 0.60 uIU/ml (0.34-5.60) 09/05/17 14:38 Urine Source CATH 09/05/17 15:09 Urine Color YELLOW 09/05/17 15:09 Urine Clarity CLOUDY (CLEAR) H 09/05/17 15:09 Urine pH 7.5 (4.6 - 8.0) 09/05/17 15:09 Ur Specific [place] 1.010 (1.005-1.030) 09/05/17 15:09 Urine Protein NEGATIVE mg/dL (NEGATIVE) 09/05/17 15:09 Urine Glucose (UA) NEGATIVE mg/dL (NEGATIVE) 09/05/17 15:09 Urine Ketones NEGATIVE mg/dL (NEGATIVE) 09/05/17 15:09 Urine Blood MODERATE (NEGATIVE) H 09/05/17 15:09 Urine Nitrate POSITIVE (NEGATIVE) H 09/05/17 15:09 Urine Bilirubin NEGATIVE (NEGATIVE) 09/05/17 15:09 Urine Urobilinogen 0.2 E.U./dL (0.2 - 1.0) 09/05/17 15:09 Ur Leukocyte Esterase LARGE (NEGATIVE) H 09/05/17 15:09 Urine RBC 5-10 /hpf (0-5) H 09/05/17 15:09 Urine WBC 50-100 /hpf (0-5) H 09/05/17 15:09 Ur Epithelial Cells FEW /lpf (FEW) 09/05/17 15:09 Urine Bacteria MANY /hpf (NONE SEEN) H 09/05/17 15:09 RPR NONREACTIVE (NONREACTIVE) 09/05/17 14:38 - Physical Exam Vitals and I&O: Vital Signs Temp 98 F 09/13/17 06:40 Pulse 76 09/13/17 14:02 Resp 20 09/13/17 14:02 BP 113/66 09/13/17 08:27 Pulse Ox 97 09/13/17 14:02 Intake & Output 09/12/17 09/13/17 09/13/17 18:59 06:59 18:59 Intake Total 1300 120 Balance 1300 120 Intake: Oral 1300 120 Other: # Voids 3 3 Active Medications: Current Medications Acetaminophen (Tylenol) 650 mg PO Q6H PRN PRN Reason: mild pain Stop: 11/04/17 20:39 Last Admin: 09/13/17 08:34 Dose: 650 mg Al Hydrox/Mg Hydrox/Simethicone (Maalox) 30 ml PO Q6HR PRN PRN Reason: Upset Stomach / Indigestion Stop: 11/04/17 20:39 Albuterol/Ipratropium (Duoneb Neb) 3 ml HHN [id number] [facility] Stop: 11/05/17 06:59 Last Admin: 09/13/17 14:02 Dose: 3 ml Artificial Tears (Artificial Tears Ophth Soln) 1 drop EACH EYE DAILY [facility] Stop: 11/05/17 08:59 Last Admin: 09/13/17 08:07 Dose: Not Given Aspirin (Aspirin Chewable) 81 mg PO DAILY [facility] Stop: 11/05/17 08:59 Last Admin: 09/12/17 08:32 Dose: 81 mg Atorvastatin Calcium (Lipitor) 20 mg PO HS [facility]; Protocol Stop: 11/05/17 20:59 Last Admin: 09/12/17 21:34 Dose: 20 mg Bisacodyl (Dulcolax 10 Mg Supp) 10 mg RC DAILY PRN PRN Reason: no bm x3 days Stop: 11/04/17 20:39 Carvedilol (Coreg) 3.125 mg PO BID [facility] Stop: 11/05/17 08:59 Last Admin: 09/13/17 08:08 Dose: 3.125 mg Clotrimazole (Lotrimin 1% Cream) 1 appl TP DAILY [facility] Stop: 11/05/17 08:59 Last Admin: 09/13/17 08:07 Dose: 1 appl Diphenhydramine HCl (Benadryl) 25 mg PO Q6H PRN PRN Reason: Itching Stop: 11/04/17 20:39 Docusate Sodium (Colace) 250 mg PO BID [facility] Stop: 11/05/17 08:59 Last Admin: 09/13/17 08:08 Dose: 250 mg Escitalopram Oxalate (Lexapro) 20 mg PO HS [facility]; Protocol Stop: 11/05/17 20:59 Last Admin: 09/12/17 21:35 Dose: 20 mg Famotidine (Pepcid) 40 mg PO DAILY [facility] Stop: 11/05/17 08:59 Last Admin: 09/13/17 08:08 Dose: 40 mg Fentanyl (Duragesic 75 Mcg/Hr Tdm Patch) 1 patch TD Q72HR [facility]; Protocol Stop: 11/05/17 08:59 Last Admin: 09/12/17 13:59 Dose: Not Given Ferrous Sulfate (Iron) 325 mg PO DAILY [facility] Stop: 11/05/17 08:59 Last Admin: 09/13/17 08:09 Dose: Not Given Furosemide (Lasix) 20 mg PO BID [facility] Stop: 11/05/17 08:59 Last Admin: 09/13/17 08:27 Dose: Not Given Ketotifen Fumarate (Zaditor 0.025% Oph Soln) 1 drop EACH EYE DAILY [facility] Stop: 11/05/17 08:59 Last Admin: 09/13/17 08:07 Dose: Not Given Lactobacillus Rhamnosus (Culturelle 15b) 1 each PO DAILY [facility] Stop: 11/05/17 08:59 Last Admin: 09/13/17 08:08 Dose: 1 each Lorazepam (Ativan) 0.5 mg PO BID PRN; Protocol PRN Reason: Anxiety Stop: 11/04/17 20:39 Last Admin: 09/10/17 20:36 Dose: 0.5 mg Mupirocin (Bactroban Oint) 1 appl NS BID [facility] Stop: 11/06/17 08:59 Last Admin: 09/13/17 08:07 Dose: 1 appl Nystatin (Nystatin) 500,000 units PO TID [facility] Stop: 11/06/17 20:59 Last Admin: 09/13/17 08:07 Dose: 500,000 units Ondansetron HCl (Zofran Odt) 4 mg PO Q12H PRN PRN Reason: Nausea / Vomiting Stop: 11/04/17 20:39 Sodium Chloride ([place] Nasal [place]) 1 spr NS Q12HR [facility] Stop: 11/04/17 20:59 Last Admin: 09/13/17 08:07 Dose: 1 spr Sodium Phosphate (Fleet Enema) 135 ml RC DAILY PRN PRN Reason: If Dulcolax ineffective Stop: 11/04/17 20:39 Trazodone HCl (Desyrel) 50 mg PO HS [facility]; Protocol Stop: 11/04/17 20:59 Last Admin: 09/12/17 21:35 Dose: 50 mg Zolpidem Tartrate (Ambien) 5 mg PO HS PRN PRN Reason: Insomnia Stop: 11/04/17 20:59 Last Admin: 09/12/17 21:34 Dose: 5 mg General: demented HEENT: NC/AT, PERRLA, EOMI, anicteric sclerae, throat clear Neck: Supple, No JVD, No thyromegaly, +2 carotid pulse wo bruit, No LAD Lungs: CTAB Cardiovascular: RRR, Normal S1, Normal S2, without murmur Abdomen: soft, non-tender, non-distended Neurological: no change Internal Medicine Assmt/Plan - Assessment Assessment: 1.PSYCHOSIS 2.HTN. 3.HYPERLIPIDEMIA. 4.DEMENTIA. - Plan Plan: CONTINUE ON CURRENT MEDICATION AND DIET.RENEW ALL PAIN MEDICATIONS. Nutritional Asmnt/Malnutr-PDOC - Dietary Evaluation Malnutrition Findings (Please click <Entered> for more info): Nutritional Asmnt/Malnutrition Start: 09/09/17 15: 56 Text: Status: Complete Freq: Protocol: Document 09/09/17 15:56 LCRADHAG (Rec: 09/09/17 16:10 [email or web address]) Nutritional Asmnt/Malnutrition Patient General Information Nutritional Screening Low Risk Diagnosis depression Pertinent Medical Hx/Surgical Hx hyperlipidemia, HTn, DJD, dementia, psychosis Subjective Information Pt seen in bed having lunch at time of visit. Pt complained of month source and not able to put on denture. Pt only can eat the soup, pears, dinner roll and veggies. Offered other food, pt refused and stated she was not hungry. PO intake 25-50% over the past 2 days. Usually was 50-100%. Pt is on linezolid noted, not appropriate for nutrition education of food and drug interaction d/t cognition status at this time. Current Diet Order/ Nutrition Support regular Pertinent Medications colace, iron, lasix, culturelle Pertinent Labs 09/05 Na 134, K 3.3, Cl 93, BUN 6, Cr 0.4, glucose 102, A1c 4 .4 Nutritional Hx/Data Height 1.57 m Height (Calculated Centimeters) 157.5 Current Weight (lbs) 98.883 kg Weight (Calculated Kilograms) 98.9 Weight (Calculated Grams) 13596.[address] [place] Body Weight 110 Body Mass Index (BMI) 39.9 Weight Status Obese GI Symptoms GI Symptoms None Last BM no BM on 09/06 Skin Integrity/Comment: Mark 17 Current %PO Poor (25-49%) Estimated Nutritional Goals BEE in Kcals: Adj wt of IBW Calories/Kcals/Kg 25-30 Kcals Calculated 9952-3854 Protein: Adj wt of IBW Protein g/k.8-1 Protein Calculated 50-62 Fluid: ml 1550-1860ml (1ml/kcal) Nutritional Problem 1. Problem Problem inadequate food intake Etiology chowing difficulty without denture d/t month sour Signs/Symptoms: PO intake 25-50% Malnutrition Alert Is there a minimum of two criteria No selected? Query Text:Check all the applicable criteria. A minimum of two criteria are recommended for diagnosis of either severe or non-severe malnutrition. Malnutrition Related to Morbid Obesity Malnutrition related to morbid obesity No Intervention/Recommendation Comments 1. Spoke wtih RN Aroldo, keep monitor diet tolerance. If pt not able to use denture and not tolerate diet, consider requestion alternatives. 2. Monitor PO intake, wt, labs and skin integrity 3. F/U as moderate risk in 3-5 days, 09/12-09/14, PO check Expected Outcomes/Goals Expected Outcomes/Goals 1. PO intake to meet at least 75% of nutritional needs. 2. Wt stability, skin to remain intact, labs to approach WNL.
[2017-09-13] MEDS: Aspirin 81mg Chewable Tab PO SCH (17:46)
[2017-09-13] MEDS: Atorvastatin Calcium 10 MG TAB PO SCH (20:58)
--- NOTE | 2017-09-13 20:59 | Progress Notes ---
DATE: SUBJECTIVE: Chart reviewed and the patient interviewed. Also discussed the patient's condition with the staff and reviewed records and labs. The patient is still severely depressed. The patient also is demanding and she is isolative and withdrawn. The patient also has labile affect. She also is still interacting minimally with peers and with others. The patient, on the other hand is cooperative and compliant with taking medications and easy to redirect. ASSESSMENT: The patient is still depressed and agitated. TREATMENT PLAN: Continue to monitor her behavior and her condition. Also, continue Lexapro 20 mg every day and continue to follow up closely. JOB# [id number]
[2017-09-14] MEDS: Albuterol/Ipratropium Neb 3 ML AERS HHN SCH ×4 (06:25→19:23)
[2017-09-14] MEDS: Lactobacillus Rhamnosus GG 15 Billion CFU CAP.SPRINK PO SCH (08:59)
[2017-09-14] MEDS: Ferrous Sulfate 325 MG TAB PO SCH (08:59)
[2017-09-14] MEDS: Polyvinyl Alcohol Ophth Soln 15 mL Bottle EACH EYE SCH (09:00)
[2017-09-14] MEDS: Saline 0.65% Nasal Spray NS SCH ×2 (09:00→20:35)
--- NOTE | 2017-09-14 19:18 | Progress Notes ---
DATE: The patient is guarding and she is still demanding and in irritable mood. The patient also still stays in her bed most of the time and asking to go home without having any safe plan for self-care or for her discharge. The patient also is restless and is in irritable mood. She also still wants to be left alone. ASSESSMENT: The patient is still depressed and anxious. TREATMENT PLAN: Continue to monitor her behavior and her condition closely. Also, continue Lexapro at same dose. Also, working on her ineffective coping and also working on discharge plans. JOB# [id number]
[2017-09-14] MEDS: Atorvastatin Calcium 10 MG TAB PO SCH (20:32)
--- NOTE | 2017-09-14 23:12 | General Progress Note ---
Subjective - Review of Systems Service Date: 09/14/17 Subjective: resting comfortably no distress Objective - Results Result Diagrams: 09/05/17 14:38 09/05/17 14:38 Recent Labs: Laboratory Last Values WBC 9.3 Th/cmm (4.8-10.8) 09/05/17 14:38 RBC 3.21 Mil/cmm (3.80-5.20) L 09/05/17 14:38 Hgb 9.2 gm/dL (12-16) L 09/05/17 14:38 Hct 28.1 % (41.0-60) L 09/05/17 14:38 MCV 87.6 fl (81-100) 09/05/17 14:38 MCH 28.8 pg (27.0-31.0) 09/05/17 14:38 MCHC Differential 32.9 pg (28.0-36.0) 09/05/17 14:38 RDW 15.0 % (11.5-20.0) 09/05/17 14:38 Plt Count 251 Th/cmm (150-400) 09/05/17 14:38 MPV 8.7 fl 09/05/17 14:38 Neutrophils % 69.5 % (40.0-80.0) 09/05/17 14:38 Lymphocytes % 23.7 % (20.0-50.0) 09/05/17 14:38 Monocytes % 5.0 % (2.0-10.0) 09/05/17 14:38 Eosinophils % 1.8 % (0.0-5.0) 09/05/17 14:38 Basophils % 0.0 % (0.0-2.0) 09/05/17 14:38 Sodium 134 mEq/L (136-145) L 09/05/17 14:38 Potassium 3.3 mEq/L (3.5-5.1) L 09/05/17 14:38 Chloride 93 mEq/L (98-107) L 09/05/17 14:38 Carbon Dioxide 35.7 mEq/L (21.0-31.0) H 09/05/17 14:38 Anion Gap 8.6 (7.0-16.0) 09/05/17 14:38 BUN 6 mg/dL (7-25) L 09/05/17 14:38 Creatinine 0.4 mg/dL (0.6-1.2) L 09/05/17 14:38 Est GFR ( Amer) TNP 09/05/17 14:38 Est GFR (Non-Af Amer) TNP 09/05/17 14:38 BUN/Creatinine Ratio 15.0 09/05/17 14:38 Glucose 102 mg/dL (70-105) 09/05/17 14:38 Hemoglobin A1c % 4.4 % (4.0-6.0) 09/05/17 14:38 Calcium 9.2 mg/dL (8.6-10.3) 09/05/17 14:38 Total Bilirubin 0.4 mg/dL (0.3-1.0) 09/05/17 14:38 AST 12 U/L (13-39) L 09/05/17 14:38 ALT 4 U/L (7-52) L 09/05/17 14:38 Alkaline Phosphatase 97 U/L (34-104) 09/05/17 14:38 Total Protein 5.9 gm/dL (6.0-8.3) L 09/05/17 14:38 Albumin 3.1 gm/dL (3.7-5.3) L 09/05/17 14:38 Triglycerides 73 mg/dL (<150) 09/05/17 14:38 Cholesterol 132 mg/dL (<200) 09/05/17 14:38 LDL Cholesterol Direct 70 mg/dL (75-193) L 09/05/17 14:38 HDL Cholesterol 40 mg/dL (23-92) 09/05/17 14:38 TSH 0.60 uIU/ml (0.34-5.60) 09/05/17 14:38 Urine Source CATH 09/05/17 15:09 Urine Color YELLOW 09/05/17 15:09 Urine Clarity CLOUDY (CLEAR) H 09/05/17 15:09 Urine pH 7.5 (4.6 - 8.0) 09/05/17 15:09 Ur Specific [place] 1.010 (1.005-1.030) 09/05/17 15:09 Urine Protein NEGATIVE mg/dL (NEGATIVE) 09/05/17 15:09 Urine Glucose (UA) NEGATIVE mg/dL (NEGATIVE) 09/05/17 15:09 Urine Ketones NEGATIVE mg/dL (NEGATIVE) 09/05/17 15:09 Urine Blood MODERATE (NEGATIVE) H 09/05/17 15:09 Urine Nitrate POSITIVE (NEGATIVE) H 09/05/17 15:09 Urine Bilirubin NEGATIVE (NEGATIVE) 09/05/17 15:09 Urine Urobilinogen 0.2 E.U./dL (0.2 - 1.0) 09/05/17 15:09 Ur Leukocyte Esterase LARGE (NEGATIVE) H 09/05/17 15:09 Urine RBC 5-10 /hpf (0-5) H 09/05/17 15:09 Urine WBC 50-100 /hpf (0-5) H 09/05/17 15:09 Ur Epithelial Cells FEW /lpf (FEW) 09/05/17 15:09 Urine Bacteria MANY /hpf (NONE SEEN) H 09/05/17 15:09 RPR NONREACTIVE (NONREACTIVE) 09/05/17 14:38 - Physical Exam Vitals and I&O: Vital Signs Temp 98.2 F 09/14/17 20:40 Pulse 79 09/14/17 20:40 Resp 20 09/14/17 20:40 BP 116/60 09/14/17 20:40 Pulse Ox 96 09/14/17 20:40 Intake & Output 09/14/17 09/14/17 09/15/17 06:59 18:59 06:59 Intake Total 1200 240 Output Total 4 2 Balance 1196 238 Intake: Oral 1200 240 Output: Urine 4 Stool 1 Urine/Stool Mix 1 Other: # Bowel Movements 1 Active Medications: Current Medications Acetaminophen (Tylenol) 650 mg PO Q6H PRN PRN Reason: mild pain Stop: 11/04/17 20:39 Last Admin: 09/13/17 17:46 Dose: 650 mg Al Hydrox/Mg Hydrox/Simethicone (Maalox) 30 ml PO Q6HR PRN PRN Reason: Upset Stomach / Indigestion Stop: 11/04/17 20:39 Albuterol/Ipratropium (Duoneb Neb) 3 ml HHN [id number] [facility] Stop: 11/05/17 06:59 Last Admin: 09/14/17 19:23 Dose: 3 ml Artificial Tears (Artificial Tears Ophth Soln) 1 drop EACH EYE DAILY [facility] Stop: 11/05/17 08:59 Last Admin: 09/14/17 09:00 Dose: 1 drop Aspirin (Aspirin Chewable) 81 mg PO DAILY [facility] Stop: 11/05/17 08:59 Last Admin: 09/13/17 17:46 Dose: 81 mg Atorvastatin Calcium (Lipitor) 20 mg PO HS [facility]; Protocol Stop: 11/05/17 20:59 Last Admin: 09/14/17 20:32 Dose: 20 mg Bisacodyl (Dulcolax 10 Mg Supp) 10 mg RC DAILY PRN PRN Reason: no bm x3 days Stop: 11/04/17 20:39 Carvedilol (Coreg) 3.125 mg PO BID [facility] Stop: 11/05/17 08:59 Last Admin: 09/14/17 17:41 Dose: 3.125 mg Clotrimazole (Lotrimin 1% Cream) 1 appl TP DAILY [facility] Stop: 11/05/17 08:59 Last Admin: 09/14/17 09:00 Dose: 1 appl Diphenhydramine HCl (Benadryl) 25 mg PO Q6H PRN PRN Reason: Itching Stop: 11/04/17 20:39 Docusate Sodium (Colace) 250 mg PO BID [facility] Stop: 11/05/17 08:59 Last Admin: 09/14/17 17:42 Dose: 250 mg Escitalopram Oxalate (Lexapro) 20 mg PO HS [facility]; Protocol Stop: 11/05/17 20:59 Last Admin: 09/14/17 20:33 Dose: 20 mg Famotidine (Pepcid) 40 mg PO DAILY [facility] Stop: 11/05/17 08:59 Last Admin: 09/14/17 08:59 Dose: 40 mg Fentanyl (Duragesic 75 Mcg/Hr Tdm Patch) 1 patch TD Q72HR [facility]; Protocol Stop: 11/05/17 08:59 Last Admin: 09/12/17 13:59 Dose: Not Given Ferrous Sulfate (Iron) 325 mg PO DAILY [facility] Stop: 11/05/17 08:59 Last Admin: 09/14/17 08:59 Dose: 325 mg Furosemide (Lasix) 20 mg PO BID [facility] Stop: 11/05/17 08:59 Last Admin: 09/14/17 17:42 Dose: 20 mg Ketotifen Fumarate (Zaditor 0.025% [facility] Soln) 1 drop EACH EYE DAILY [facility] Stop: 11/05/17 08:59 Last Admin: 09/14/17 09:00 Dose: 1 drop Lactobacillus Rhamnosus (Culturelle 15b) 1 each PO DAILY [facility] Stop: 11/05/17 08:59 Last Admin: 09/14/17 08:59 Dose: 1 each Lorazepam (Ativan) 0.5 mg PO BID PRN; Protocol PRN Reason: Anxiety Stop: 11/04/17 20:39 Last Admin: 09/14/17 22:01 Dose: 0.5 mg Mupirocin (Bactroban Oint) 1 appl NS BID [facility] Stop: 11/06/17 08:59 Last Admin: 09/14/17 17:42 Dose: 1 appl Nystatin (Nystatin) 500,000 units PO TID [facility] Stop: 11/06/17 20:59 Last Admin: 09/14/17 20:35 Dose: 500,000 units Ondansetron HCl (Zofran Odt) 4 mg PO Q12H PRN PRN Reason: Nausea / Vomiting Stop: 11/04/17 20:39 Oxycodone HCl (Oxycontin) 10 mg PO Q12HR [facility] Stop: 11/12/17 20:59 Last Admin: 09/14/17 20:33 Dose: 10 mg Sodium Chloride ([place] Nasal [place]) 1 spr NS Q12HR [facility] Stop: 11/04/17 20:59 Last Admin: 09/14/17 20:35 Dose: 1 spr Sodium Phosphate (Fleet Enema) 135 ml RC DAILY PRN PRN Reason: If Dulcolax ineffective Stop: 11/04/17 20:39 Trazodone HCl (Desyrel) 50 mg PO HS [facility]; Protocol Stop: 11/04/17 20:59 Last Admin: 09/14/17 20:32 Dose: 50 mg Zolpidem Tartrate (Ambien) 5 mg PO HS PRN PRN Reason: Insomnia Stop: 11/04/17 20:59 Last Admin: 09/14/17 20:32 Dose: 5 mg General: Alert HEENT: Atraumatic Neck: Supple, JVD Cardiovascular: Regular rate, Normal S1, Normal S2 Lungs: Clear to auscultation, Normal air movement Abdomen: Bowel sounds, Soft Assessment/Plan - Assessment Assessment: 1.PSYCHOSIS 2.HTN. 3.HYPERLIPIDEMIA. 4.DEMENTIA. - Plan Plan: cont current treatment Nutritional Asmnt/Malnutr-PDOC - Dietary Evaluation Malnutrition Findings (Please click <Entered> for more info): Nutritional Asmnt/Malnutrition Start: 09/09/17 15: 56 Text: Status: Complete Freq: Protocol: Document 09/09/17 15:56 LCRADHAG (Rec: 09/09/17 16:10 [email or web address]) Nutritional Asmnt/Malnutrition Patient General Information Nutritional Screening Low Risk Diagnosis depression Pertinent Medical Hx/Surgical Hx hyperlipidemia, HTn, DJD, dementia, psychosis Subjective Information Pt seen in bed having lunch at time of visit. Pt complained of month source and not able to put on denture. Pt only can eat the soup, pears, dinner roll and veggies. Offered other food, pt refused and stated she was not hungry. PO intake 25-50% over the past 2 days. Usually was 50-100%. Pt is on linezolid noted, not appropriate for nutrition education of food and drug interaction d/t cognition status at this time. Current Diet Order/ Nutrition Support regular Pertinent Medications colace, iron, lasix, culturelle Pertinent Labs 09/05 Na 134, K 3.3, Cl 93, BUN 6, Cr 0.4, glucose 102, A1c 4 .4 Nutritional Hx/Data Height 1.57 m Height (Calculated Centimeters) 157.5 Current Weight (lbs) 98.883 kg Weight (Calculated Kilograms) 98.9 Weight (Calculated Grams) 33941.1 [place] Body Weight 110 Body Mass Index (BMI) 39.9 Weight Status Obese GI Symptoms GI Symptoms None Last BM no BM on 09/06 Skin Integrity/Comment: Mark 17 Current %PO Poor (25-49%) Estimated Nutritional Goals BEE in Kcals: Adj wt of IBW Calories/Kcals/Kg 25-30 Kcals Calculated 2069-8390 Protein: Adj wt of IBW Protein g/k.8-1 Protein Calculated 50-62 Fluid: ml 1550-1860ml (1ml/kcal) Nutritional Problem 1. Problem Problem inadequate food intake Etiology chowing difficulty without denture d/t month sour Signs/Symptoms: PO intake 25-50% Malnutrition Alert Is there a minimum of two criteria No selected? Query Text:Check all the applicable criteria. A minimum of two criteria are recommended for diagnosis of either severe or non-severe malnutrition. Malnutrition Related to Morbid Obesity Malnutrition related to morbid obesity No Intervention/Recommendation Comments 1. Spoke wtih RN Aroldo, keep monitor diet tolerance. If pt not able to use denture and not tolerate diet, consider requestion alternatives. 2. Monitor PO intake, wt, labs and skin integrity 3. F/U as moderate risk in 3-5 days, 09/12-09/14, PO check Expected Outcomes/Goals Expected Outcomes/Goals 1. PO intake to meet at least 75% of nutritional needs. 2. Wt stability, skin to remain intact, labs to approach WNL.
[2017-09-15] MEDS: Albuterol/Ipratropium Neb 3 ML AERS HHN SCH ×4 (06:58→19:02)
[2017-09-15] MEDS: Lactobacillus Rhamnosus GG 15 Billion CFU CAP.SPRINK PO SCH (08:53)
[2017-09-15] MEDS: Ferrous Sulfate 325 MG TAB PO SCH ×2 (08:54→09:12)
[2017-09-15] MEDS: Aspirin 81mg Chewable Tab PO SCH (08:54)
[2017-09-15] MEDS: Saline 0.65% Nasal Spray NS SCH ×2 (08:57→20:53)
[2017-09-15] MEDS: Polyvinyl Alcohol Ophth Soln 15 mL Bottle EACH EYE SCH (09:00)
[2017-09-15] MEDS: fentaNYL 75 mcg/hr Tdm Patch TD SCH (09:33)
--- NOTE | 2017-09-15 15:23 | General Progress Note ---
Subjective - Review of Systems Service Date: 09/15/17 Subjective: resting comfortably no distress Objective - Results Result Diagrams: 09/05/17 14:38 09/05/17 14:38 Recent Labs: Laboratory Last Values WBC 9.3 Th/cmm (4.8-10.8) 09/05/17 14:38 RBC 3.21 Mil/cmm (3.80-5.20) L 09/05/17 14:38 Hgb 9.2 gm/dL (12-16) L 09/05/17 14:38 Hct 28.1 % (41.0-60) L 09/05/17 14:38 MCV 87.6 fl (81-100) 09/05/17 14:38 MCH 28.8 pg (27.0-31.0) 09/05/17 14:38 MCHC Differential 32.9 pg (28.0-36.0) 09/05/17 14:38 RDW 15.0 % (11.5-20.0) 09/05/17 14:38 Plt Count 251 Th/cmm (150-400) 09/05/17 14:38 MPV 8.7 fl 09/05/17 14:38 Neutrophils % 69.5 % (40.0-80.0) 09/05/17 14:38 Lymphocytes % 23.7 % (20.0-50.0) 09/05/17 14:38 Monocytes % 5.0 % (2.0-10.0) 09/05/17 14:38 Eosinophils % 1.8 % (0.0-5.0) 09/05/17 14:38 Basophils % 0.0 % (0.0-2.0) 09/05/17 14:38 Sodium 134 mEq/L (136-145) L 09/05/17 14:38 Potassium 3.3 mEq/L (3.5-5.1) L 09/05/17 14:38 Chloride 93 mEq/L (98-107) L 09/05/17 14:38 Carbon Dioxide 35.7 mEq/L (21.0-31.0) H 09/05/17 14:38 Anion Gap 8.6 (7.0-16.0) 09/05/17 14:38 BUN 6 mg/dL (7-25) L 09/05/17 14:38 Creatinine 0.4 mg/dL (0.6-1.2) L 09/05/17 14:38 Est GFR ( Amer) TNP 09/05/17 14:38 Est GFR (Non-Af Amer) TNP 09/05/17 14:38 BUN/Creatinine Ratio 15.0 09/05/17 14:38 Glucose 102 mg/dL (70-105) 09/05/17 14:38 Hemoglobin A1c % 4.4 % (4.0-6.0) 09/05/17 14:38 Calcium 9.2 mg/dL (8.6-10.3) 09/05/17 14:38 Total Bilirubin 0.4 mg/dL (0.3-1.0) 09/05/17 14:38 AST 12 U/L (13-39) L 09/05/17 14:38 ALT 4 U/L (7-52) L 09/05/17 14:38 Alkaline Phosphatase 97 U/L (34-104) 09/05/17 14:38 Total Protein 5.9 gm/dL (6.0-8.3) L 09/05/17 14:38 Albumin 3.1 gm/dL (3.7-5.3) L 09/05/17 14:38 Triglycerides 73 mg/dL (<150) 09/05/17 14:38 Cholesterol 132 mg/dL (<200) 09/05/17 14:38 LDL Cholesterol Direct 70 mg/dL (75-193) L 09/05/17 14:38 HDL Cholesterol 40 mg/dL (23-92) 09/05/17 14:38 TSH 0.60 uIU/ml (0.34-5.60) 09/05/17 14:38 Urine Source CATH 09/05/17 15:09 Urine Color YELLOW 09/05/17 15:09 Urine Clarity CLOUDY (CLEAR) H 09/05/17 15:09 Urine pH 7.5 (4.6 - 8.0) 09/05/17 15:09 Ur Specific [place] 1.010 (1.005-1.030) 09/05/17 15:09 Urine Protein NEGATIVE mg/dL (NEGATIVE) 09/05/17 15:09 Urine Glucose (UA) NEGATIVE mg/dL (NEGATIVE) 09/05/17 15:09 Urine Ketones NEGATIVE mg/dL (NEGATIVE) 09/05/17 15:09 Urine Blood MODERATE (NEGATIVE) H 09/05/17 15:09 Urine Nitrate POSITIVE (NEGATIVE) H 09/05/17 15:09 Urine Bilirubin NEGATIVE (NEGATIVE) 09/05/17 15:09 Urine Urobilinogen 0.2 E.U./dL (0.2 - 1.0) 09/05/17 15:09 Ur Leukocyte Esterase LARGE (NEGATIVE) H 09/05/17 15:09 Urine RBC 5-10 /hpf (0-5) H 09/05/17 15:09 Urine WBC 50-100 /hpf (0-5) H 09/05/17 15:09 Ur Epithelial Cells FEW /lpf (FEW) 09/05/17 15:09 Urine Bacteria MANY /hpf (NONE SEEN) H 09/05/17 15:09 RPR NONREACTIVE (NONREACTIVE) 09/05/17 14:38 - Physical Exam Vitals and I&O: Vital Signs Temp 97 F 09/15/17 08:00 Pulse 71 09/15/17 14:29 Resp 20 09/15/17 14:29 BP 94/53 09/15/17 08:54 Pulse Ox 97 09/15/17 14:29 Intake & Output 09/14/17 09/15/17 09/15/17 18:59 06:59 18:59 Intake Total 1200 480 Output Total 4 3 Balance 1196 477 Intake: Oral 1200 480 Output: Urine 4 Stool 1 Urine/Stool Mix 2 Other: # Voids 1 # Bowel Movements 1 Active Medications: Current Medications Acetaminophen (Tylenol) 650 mg PO Q6H PRN PRN Reason: mild pain Stop: 11/04/17 20:39 Last Admin: 09/13/17 17:46 Dose: 650 mg Al Hydrox/Mg Hydrox/Simethicone (Maalox) 30 ml PO Q6HR PRN PRN Reason: Upset Stomach / Indigestion Stop: 11/04/17 20:39 Albuterol/Ipratropium (Duoneb Neb) 3 ml HHN [id number] [facility] Stop: 11/05/17 06:59 Last Admin: 09/15/17 14:29 Dose: 3 ml Artificial Tears (Artificial Tears Ophth Soln) 1 drop EACH EYE DAILY [facility] Stop: 11/05/17 08:59 Last Admin: 09/15/17 09:00 Dose: 1 drop Aspirin (Aspirin Chewable) 81 mg PO DAILY [facility] Stop: 11/05/17 08:59 Last Admin: 09/15/17 08:54 Dose: 81 mg Atorvastatin Calcium (Lipitor) 20 mg PO HS [facility]; Protocol Stop: 11/05/17 20:59 Last Admin: 09/14/17 20:32 Dose: 20 mg Bisacodyl (Dulcolax 10 Mg Supp) 10 mg RC DAILY PRN PRN Reason: no bm x3 days Stop: 11/04/17 20:39 Carvedilol (Coreg) 3.125 mg PO BID [facility] Stop: 11/05/17 08:59 Last Admin: 09/15/17 08:56 Dose: Not Given Clotrimazole (Lotrimin 1% Cream) 1 appl TP DAILY [facility] Stop: 11/05/17 08:59 Last Admin: 09/15/17 08:59 Dose: 1 appl Diphenhydramine HCl (Benadryl) 25 mg PO Q6H PRN PRN Reason: Itching Stop: 11/04/17 20:39 Docusate Sodium (Colace) 250 mg PO BID [facility] Stop: 11/05/17 08:59 Last Admin: 09/15/17 08:54 Dose: 250 mg Escitalopram Oxalate (Lexapro) 20 mg PO HS [facility]; Protocol Stop: 11/05/17 20:59 Last Admin: 09/14/17 20:33 Dose: 20 mg Famotidine (Pepcid) 40 mg PO DAILY [facility] Stop: 11/05/17 08:59 Last Admin: 09/15/17 08:53 Dose: 40 mg Fentanyl (Duragesic 75 Mcg/Hr Tdm Patch) 1 patch TD Q72HR [facility]; Protocol Stop: 11/05/17 08:59 Last Admin: 09/15/17 09:33 Dose: 1 patch Ferrous Sulfate (Iron) 325 mg PO DAILY [facility] Stop: 11/05/17 08:59 Last Admin: 09/15/17 09:12 Dose: Not Given Furosemide (Lasix) 20 mg PO BID [facility] Stop: 11/05/17 08:59 Last Admin: 09/15/17 08:54 Dose: 20 mg Ketotifen Fumarate (Zaditor 0.025% Oph Soln) 1 drop EACH EYE DAILY [facility] Stop: 11/05/17 08:59 Last Admin: 09/15/17 08:59 Dose: 1 drop Lactobacillus Rhamnosus (Culturelle 15b) 1 each PO DAILY [facility] Stop: 11/05/17 08:59 Last Admin: 09/15/17 08:53 Dose: 1 each Lorazepam (Ativan) 0.5 mg PO BID PRN; Protocol PRN Reason: Anxiety Stop: 11/04/17 20:39 Last Admin: 09/14/17 22:01 Dose: 0.5 mg Mupirocin (Bactroban Oint) 1 appl NS BID [facility] Stop: 11/06/17 08:59 Last Admin: 09/15/17 08:58 Dose: 1 appl Ondansetron HCl (Zofran Odt) 4 mg PO Q12H PRN PRN Reason: Nausea / Vomiting Stop: 11/04/17 20:39 Oxycodone HCl (Oxycontin) 10 mg PO Q12HR [facility] Stop: 11/12/17 20:59 Last Admin: 09/15/17 08:56 Dose: 10 mg Risperidone (Risperdal) 0.25 mg PO BID [facility]; Protocol Stop: 11/14/17 08:59 Last Admin: 09/15/17 08:54 Dose: 0.25 mg Sodium Chloride ([place] Nasal [place]) 1 spr NS Q12HR [facility] Stop: 11/04/17 20:59 Last Admin: 09/15/17 08:57 Dose: 1 spr Sodium Phosphate (Fleet Enema) 135 ml RC DAILY PRN PRN Reason: If Dulcolax ineffective Stop: 11/04/17 20:39 Trazodone HCl (Desyrel) 50 mg PO HS [facility]; Protocol Stop: 11/04/17 20:59 Last Admin: 09/14/17 20:32 Dose: 50 mg Zolpidem Tartrate (Ambien) 5 mg PO HS PRN PRN Reason: Insomnia Stop: 11/04/17 20:59 Last Admin: 09/14/17 20:32 Dose: 5 mg General: Alert HEENT: Atraumatic Neck: Supple, JVD Cardiovascular: Regular rate, Normal S1, Normal S2 Lungs: Clear to auscultation, Normal air movement Abdomen: Bowel sounds, Soft Assessment/Plan - Assessment Assessment: 1.PSYCHOSIS 2.HTN. 3.HYPERLIPIDEMIA. 4.DEMENTIA. - Plan Plan: cont current treatment Nutritional Asmnt/Malnutr-PDOC - Dietary Evaluation Malnutrition Findings (Please click <Entered> for more info): Nutritional Asmnt/Malnutrition Start: 09/09/17 15: 56 Text: Status: Complete Freq: Protocol: Document 09/09/17 15:56 [email or web address] (Rec: 09/09/17 16:10 RADHA [email or web address]) Nutritional Asmnt/Malnutrition Patient General Information Nutritional Screening Low Risk Diagnosis depression Pertinent Medical Hx/Surgical Hx hyperlipidemia, HTn, DJD, dementia, psychosis Subjective Information Pt seen in bed having lunch at time of visit. Pt complained of month source and not able to put on denture. Pt only can eat the soup, pears, dinner roll and veggies. Offered other food, pt refused and stated she was not hungry. PO intake 25-50% over the past 2 days. Usually was 50-100%. Pt is on linezolid noted, not appropriate for nutrition education of food and drug interaction d/t cognition status at this time. Current Diet Order/ Nutrition Support regular Pertinent Medications colace, iron, lasix, culturelle Pertinent Labs 09/05 Na 134, K 3.3, Cl 93, BUN 6, Cr 0.4, glucose 102, A1c 4 .4 Nutritional Hx/Data Height 1.57 m Height (Calculated Centimeters) 157.5 Current Weight (lbs) 98.883 kg Weight (Calculated Kilograms) 98.9 Weight (Calculated Grams) 54359.1 [place] Body Weight 110 Body Mass Index (BMI) 39.9 Weight Status Obese GI Symptoms GI Symptoms None Last BM no BM on 09/06 Skin Integrity/Comment: Mark 17 Current %PO Poor (25-49%) Estimated Nutritional Goals BEE in Kcals: Adj wt of IBW Calories/Kcals/Kg 25-30 Kcals Calculated 4641-0190 Protein: Adj wt of IBW Protein g/k.8-1 Protein Calculated 50-62 Fluid: ml 1550-1860ml (1ml/kcal) Nutritional Problem 1. Problem Problem inadequate food intake Etiology chowing difficulty without denture d/t month sour Signs/Symptoms: PO intake 25-50% Malnutrition Alert Is there a minimum of two criteria No selected? Query Text:Check all the applicable criteria. A minimum of two criteria are recommended for diagnosis of either severe or non-severe malnutrition. Malnutrition Related to Morbid Obesity Malnutrition related to morbid obesity No Intervention/Recommendation Comments 1. Spoke wtih RN Aroldo, keep monitor diet tolerance. If pt not able to use denture and not tolerate diet, consider requestion alternatives. 2. Monitor PO intake, wt, labs and skin integrity 3. F/U as moderate risk in 3-5 days, 09/12-09/14, PO check Expected Outcomes/Goals Expected Outcomes/Goals 1. PO intake to meet at least 75% of nutritional needs. 2. Wt stability, skin to remain intact, labs to approach WNL.
[2017-09-15] MEDS: Atorvastatin Calcium 10 MG TAB PO SCH (20:51)
[2017-09-16] MEDS: Albuterol/Ipratropium Neb 3 ML AERS HHN SCH ×4 (07:11→18:32)
[2017-09-16] MEDS: Aspirin 81mg Chewable Tab PO SCH (10:26)
[2017-09-16] MEDS: Lactobacillus Rhamnosus GG 15 Billion CFU CAP.SPRINK PO SCH (10:26)
[2017-09-16] MEDS: Ferrous Sulfate 325 MG TAB PO SCH (10:28)
[2017-09-16] MEDS: Polyvinyl Alcohol Ophth Soln 15 mL Bottle EACH EYE SCH (10:30)
[2017-09-16] MEDS: Saline 0.65% Nasal Spray NS SCH ×2 (10:30→21:30)
--- NOTE | 2017-09-16 17:32 | Internal Medicine Prog Note ---
Internal Medicine Subjective - Subjective Service Date: 09/16/17 Patient seen and examined:: with staff (SHE FEELS BETTER) Patient is:: awake, verbal, in bed, talking, confused Per staff patient has:: no adverse event Internal Medicine Objective - Results Result Diagrams: 09/05/17 14:38 09/05/17 14:38 Recent Labs: Laboratory Last Values WBC 9.3 Th/cmm (4.8-10.8) 09/05/17 14:38 RBC 3.21 Mil/cmm (3.80-5.20) L 09/05/17 14:38 Hgb 9.2 gm/dL (12-16) L 09/05/17 14:38 Hct 28.1 % (41.0-60) L 09/05/17 14:38 MCV 87.6 fl (81-100) 09/05/17 14:38 MCH 28.8 pg (27.0-31.0) 09/05/17 14:38 MCHC Differential 32.9 pg (28.0-36.0) 09/05/17 14:38 RDW 15.0 % (11.5-20.0) 09/05/17 14:38 Plt Count 251 Th/cmm (150-400) 09/05/17 14:38 MPV 8.7 fl 09/05/17 14:38 Neutrophils % 69.5 % (40.0-80.0) 09/05/17 14:38 Lymphocytes % 23.7 % (20.0-50.0) 09/05/17 14:38 Monocytes % 5.0 % (2.0-10.0) 09/05/17 14:38 Eosinophils % 1.8 % (0.0-5.0) 09/05/17 14:38 Basophils % 0.0 % (0.0-2.0) 09/05/17 14:38 Sodium 134 mEq/L (136-145) L 09/05/17 14:38 Potassium 3.3 mEq/L (3.5-5.1) L 09/05/17 14:38 Chloride 93 mEq/L (98-107) L 09/05/17 14:38 Carbon Dioxide 35.7 mEq/L (21.0-31.0) H 09/05/17 14:38 Anion Gap 8.6 (7.0-16.0) 09/05/17 14:38 BUN 6 mg/dL (7-25) L 09/05/17 14:38 Creatinine 0.4 mg/dL (0.6-1.2) L 09/05/17 14:38 Est GFR ( Amer) TNP 09/05/17 14:38 Est GFR (Non-Af Amer) TNP 09/05/17 14:38 BUN/Creatinine Ratio 15.0 09/05/17 14:38 Glucose 102 mg/dL (70-105) 09/05/17 14:38 Hemoglobin A1c % 4.4 % (4.0-6.0) 09/05/17 14:38 Calcium 9.2 mg/dL (8.6-10.3) 09/05/17 14:38 Total Bilirubin 0.4 mg/dL (0.3-1.0) 09/05/17 14:38 AST 12 U/L (13-39) L 09/05/17 14:38 ALT 4 U/L (7-52) L 09/05/17 14:38 Alkaline Phosphatase 97 U/L (34-104) 09/05/17 14:38 Total Protein 5.9 gm/dL (6.0-8.3) L 09/05/17 14:38 Albumin 3.1 gm/dL (3.7-5.3) L 09/05/17 14:38 Triglycerides 73 mg/dL (<150) 09/05/17 14:38 Cholesterol 132 mg/dL (<200) 09/05/17 14:38 LDL Cholesterol Direct 70 mg/dL (75-193) L 09/05/17 14:38 HDL Cholesterol 40 mg/dL (23-92) 09/05/17 14:38 TSH 0.60 uIU/ml (0.34-5.60) 09/05/17 14:38 Urine Source CATH 09/05/17 15:09 Urine Color YELLOW 09/05/17 15:09 Urine Clarity CLOUDY (CLEAR) H 09/05/17 15:09 Urine pH 7.5 (4.6 - 8.0) 09/05/17 15:09 Ur Specific [place] 1.010 (1.005-1.030) 09/05/17 15:09 Urine Protein NEGATIVE mg/dL (NEGATIVE) 09/05/17 15:09 Urine Glucose (UA) NEGATIVE mg/dL (NEGATIVE) 09/05/17 15:09 Urine Ketones NEGATIVE mg/dL (NEGATIVE) 09/05/17 15:09 Urine Blood MODERATE (NEGATIVE) H 09/05/17 15:09 Urine Nitrate POSITIVE (NEGATIVE) H 09/05/17 15:09 Urine Bilirubin NEGATIVE (NEGATIVE) 09/05/17 15:09 Urine Urobilinogen 0.2 E.U./dL (0.2 - 1.0) 09/05/17 15:09 Ur Leukocyte Esterase LARGE (NEGATIVE) H 09/05/17 15:09 Urine RBC 5-10 /hpf (0-5) H 09/05/17 15:09 Urine WBC 50-100 /hpf (0-5) H 09/05/17 15:09 Ur Epithelial Cells FEW /lpf (FEW) 09/05/17 15:09 Urine Bacteria MANY /hpf (NONE SEEN) H 09/05/17 15:09 RPR NONREACTIVE (NONREACTIVE) 09/05/17 14:38 - Physical Exam Vitals and I&O: Vital Signs Temp 97.2 F 09/16/17 16:11 Pulse 67 09/16/17 16:11 Resp 20 09/16/17 16:11 BP 119/48 09/16/17 16:11 Pulse Ox 98 09/16/17 16:11 Intake & Output 09/15/17 09/16/17 09/16/17 18:59 06:59 18:59 Intake Total 1200 420 Output Total 1 Balance 1200 419 Intake: Oral 1200 420 Output: Urine/Stool Mix 1 Other: # Voids 3 2 # Bowel Movements 1 0 Active Medications: Current Medications Acetaminophen (Tylenol) 650 mg PO Q6H PRN PRN Reason: mild pain Stop: 11/04/17 20:39 Last Admin: 09/13/17 17:46 Dose: 650 mg Al Hydrox/Mg Hydrox/Simethicone (Maalox) 30 ml PO Q6HR PRN PRN Reason: Upset Stomach / Indigestion Stop: 11/04/17 20:39 Albuterol/Ipratropium (Duoneb Neb) 3 ml HHN [id number] [facility] Stop: 11/05/17 06:59 Last Admin: 09/16/17 15:58 Dose: 3 ml Artificial Tears (Artificial Tears Ophth Soln) 1 drop EACH EYE DAILY [facility] Stop: 11/05/17 08:59 Last Admin: 09/16/17 10:30 Dose: 1 drop Aspirin (Aspirin Chewable) 81 mg PO DAILY [facility] Stop: 11/05/17 08:59 Last Admin: 09/16/17 10:26 Dose: 81 mg Atorvastatin Calcium (Lipitor) 20 mg PO HS [facility]; Protocol Stop: 11/05/17 20:59 Last Admin: 09/15/17 20:51 Dose: 20 mg Bisacodyl (Dulcolax 10 Mg Supp) 10 mg RC DAILY PRN PRN Reason: no bm x3 days Stop: 11/04/17 20:39 Carvedilol (Coreg) 3.125 mg PO BID [facility] Stop: 11/05/17 08:59 Last Admin: 09/16/17 10:27 Dose: 3.125 mg Clotrimazole (Lotrimin 1% Cream) 1 appl TP DAILY [facility] Stop: 11/05/17 08:59 Last Admin: 09/16/17 10:29 Dose: 1 appl Diphenhydramine HCl (Benadryl) 25 mg PO Q6H PRN PRN Reason: Itching Stop: 11/04/17 20:39 Docusate Sodium (Colace) 250 mg PO BID [facility] Stop: 11/05/17 08:59 Last Admin: 09/16/17 10:28 Dose: 250 mg Escitalopram Oxalate (Lexapro) 20 mg PO HS [facility]; Protocol Stop: 11/05/17 20:59 Last Admin: 09/15/17 20:52 Dose: 20 mg Famotidine (Pepcid) 40 mg PO DAILY [facility] Stop: 11/05/17 08:59 Last Admin: 09/16/17 10:25 Dose: 40 mg Fentanyl (Duragesic 75 Mcg/Hr Tdm Patch) 1 patch TD Q72HR [facility]; Protocol Stop: 11/05/17 08:59 Last Admin: 09/15/17 09:33 Dose: 1 patch Ferrous Sulfate (Iron) 325 mg PO DAILY [facility] Stop: 11/05/17 08:59 Last Admin: 09/16/17 10:28 Dose: Not Given Furosemide (Lasix) 20 mg PO BID [facility] Stop: 11/05/17 08:59 Last Admin: 09/16/17 10:28 Dose: 20 mg Ketotifen Fumarate (Zaditor 0.025% Ophth Soln) 1 drop EACH EYE DAILY [facility] Stop: 11/05/17 08:59 Last Admin: 09/16/17 10:29 Dose: 1 drop Lactobacillus Rhamnosus (Culturelle 15b) 1 each PO DAILY [facility] Stop: 11/05/17 08:59 Last Admin: 09/16/17 10:26 Dose: 1 each Lorazepam (Ativan) 0.5 mg PO BID PRN; Protocol PRN Reason: Anxiety Stop: 11/04/17 20:39 Last Admin: 09/14/17 22:01 Dose: 0.5 mg Mupirocin (Bactroban Oint) 1 appl NS BID [facility] Stop: 11/06/17 08:59 Last Admin: 09/16/17 10:29 Dose: 1 appl Ondansetron HCl (Zofran Odt) 4 mg PO Q12H PRN PRN Reason: Nausea / Vomiting Stop: 11/04/17 20:39 Last Admin: 09/15/17 17:53 Dose: 4 mg Oxycodone HCl (Oxycontin) 10 mg PO Q12HR [facility] Stop: 11/12/17 20:59 Last Admin: 09/16/17 10:25 Dose: 10 mg Risperidone (Risperdal) 0.25 mg PO BID [facility]; Protocol Stop: 11/14/17 08:59 Last Admin: 09/16/17 10:25 Dose: 0.25 mg Sodium Chloride ([place] Nasal [place]) 1 spr NS Q12HR [facility] Stop: 11/04/17 20:59 Last Admin: 09/16/17 10:30 Dose: 1 spr Sodium Phosphate (Fleet Enema) 135 ml RC DAILY PRN PRN Reason: If Dulcolax ineffective Stop: 11/04/17 20:39 Trazodone HCl (Desyrel) 50 mg PO HS [facility]; Protocol Stop: 11/04/17 20:59 Last Admin: 09/15/17 20:52 Dose: 50 mg Zolpidem Tartrate (Ambien) 5 mg PO HS PRN PRN Reason: Insomnia Stop: 11/04/17 20:59 Last Admin: 09/15/17 22:21 Dose: 5 mg General: demented HEENT: NC/AT, PERRLA, EOMI, anicteric sclerae, throat clear Neck: Supple, No JVD, No thyromegaly, +2 carotid pulse wo bruit, No LAD Lungs: CTAB Cardiovascular: RRR, Normal S1, Normal S2, without murmur Abdomen: soft, non-tender, non-distended Neurological: no change Internal Medicine Assmt/Plan - Assessment Assessment: 1.PSYCHOSIS 2.HTN. 3.HYPERLIPIDEMIA. 4.DEMENTIA. - Plan Plan: CONTINUE ON CURRENT MEDICATION AND DIET. Nutritional Asmnt/Malnutr-PDOC - Dietary Evaluation Malnutrition Findings (Please click <Entered> for more info): Nutritional Asmnt/Malnutrition Start: 09/09/17 15: 56 Text: Status: Complete Freq: Protocol: Document 09/09/17 15:56 RADHA (Rec: 09/09/17 16:10 RADHA [email or web address]) Nutritional Asmnt/Malnutrition Patient General Information Nutritional Screening Low Risk Diagnosis depression Pertinent Medical Hx/Surgical Hx hyperlipidemia, HTn, DJD, dementia, psychosis Subjective Information Pt seen in bed having lunch at time of visit. Pt complained of month source and not able to put on denture. Pt only can eat the soup, pears, dinner roll and veggies. Offered other food, pt refused and stated she was not hungry. PO intake 25-50% over the past 2 days. Usually was 50-100%. Pt is on linezolid noted, not appropriate for nutrition education of food and drug interaction d/t cognition status at this time. Current Diet Order/ Nutrition Support regular Pertinent Medications colace, iron, lasix, culturelle Pertinent Labs 09/05 Na 134, K 3.3, Cl 93, BUN 6, Cr 0.4, glucose 102, A1c 4 .4 Nutritional Hx/Data Height 1.57 m Height (Calculated Centimeters) 157.5 Current Weight (lbs) 98.883 kg Weight (Calculated Kilograms) 98.9 Weight (Calculated Grams) 23544.1 [place] Body Weight 110 Body Mass Index (BMI) 39.9 Weight Status Obese GI Symptoms GI Symptoms None Last BM no BM on 09/06 Skin Integrity/Comment: Mark 17 Current %PO Poor (25-49%) Estimated Nutritional Goals BEE in Kcals: Adj wt of IBW Calories/Kcals/Kg 25-30 Kcals Calculated 2011-7179 Protein: Adj wt of IBW Protein g/k.8-1 Protein Calculated 50-62 Fluid: ml 1550-1860ml (1ml/kcal) Nutritional Problem 1. Problem Problem inadequate food intake Etiology chowing difficulty without denture d/t month sour Signs/Symptoms: PO intake 25-50% Malnutrition Alert Is there a minimum of two criteria No selected? Query Text:Check all the applicable criteria. A minimum of two criteria are recommended for diagnosis of either severe or non-severe malnutrition. Malnutrition Related to Morbid Obesity Malnutrition related to morbid obesity No Intervention/Recommendation Comments 1. Spoke wtih RN Aroldo, keep monitor diet tolerance. If pt not able to use denture and not tolerate diet, consider requestion alternatives. 2. Monitor PO intake, wt, labs and skin integrity 3. F/U as moderate risk in 3-5 days, 09/12-09/14, PO check Expected Outcomes/Goals Expected Outcomes/Goals 1. PO intake to meet at least 75% of nutritional needs. 2. Wt stability, skin to remain intact, labs to approach WNL.
[2017-09-16] MEDS: Atorvastatin Calcium 10 MG TAB PO SCH (21:27)
--- NOTE | 2017-09-17 02:23 | Progress Notes ---
DATE: 09/16/[address] Mckenzie. SUBJECTIVE: Case was discussed with staff of the patient and reviewed records. This is an 81-year-old female who was admitted on 09/05/2017 because of confusion and irritability. She came from [facility] because of confusion and agitation, difficulty following direction, suspicious, paranoid toward others and also is very disorganized. The patient was diagnosed with urinary tract infection with a history of depression. The patient is taking Lexapro and trazodone. The patient when I talk to her, she has multiple somatic complaints. She reports that she needs to have many medical exams and also she had x-rays, CT scans, unable to explain to me why she has doctors ____ on Lexapro [address] Sears is taking care of her medical condition. Her medication was reviewed. She is unpredictable and impulsive. She is on Risperdal 0.25 mg twice a day that was increased yesterday by Dr. Mckenzie. No side effects to the medication, no sedation, no nausea, no extrapyramidal symptoms. We will continue to have the patient in group therapy, milieu therapy, and adjust the medications as needed. JOB# [id number]
[2017-09-17] MEDS: Albuterol/Ipratropium Neb 3 ML AERS HHN SCH ×4 (07:19→19:08)
[2017-09-17] MEDS: Ferrous Sulfate 325 MG TAB PO SCH (09:37)
[2017-09-17] MEDS: Lactobacillus Rhamnosus GG 15 Billion CFU CAP.SPRINK PO SCH (09:37)
[2017-09-17] MEDS: Aspirin 81mg Chewable Tab PO SCH (09:38)
[2017-09-17] MEDS: Polyvinyl Alcohol Ophth Soln 15 mL Bottle EACH EYE SCH (09:40)
[2017-09-17] MEDS: Saline 0.65% Nasal Spray NS SCH ×2 (09:40→20:40)
[2017-09-17] MEDS: Atorvastatin Calcium 10 MG TAB PO SCH (20:36)
--- NOTE | 2017-09-17 21:23 | Internal Medicine Prog Note ---
Internal Medicine Subjective - Subjective Service Date: 09/17/17 Patient seen and examined:: with staff (SHE FEELS BETTER) Patient is:: awake, verbal, in bed, talking, confused Per staff patient has:: no adverse event Internal Medicine Objective - Results Result Diagrams: 09/05/17 14:38 09/05/17 14:38 Recent Labs: Laboratory Last Values WBC 9.3 Th/cmm (4.8-10.8) 09/05/17 14:38 RBC 3.21 Mil/cmm (3.80-5.20) L 09/05/17 14:38 Hgb 9.2 gm/dL (12-16) L 09/05/17 14:38 Hct 28.1 % (41.0-60) L 09/05/17 14:38 MCV 87.6 fl (81-100) 09/05/17 14:38 MCH 28.8 pg (27.0-31.0) 09/05/17 14:38 MCHC Differential 32.9 pg (28.0-36.0) 09/05/17 14:38 RDW 15.0 % (11.5-20.0) 09/05/17 14:38 Plt Count 251 Th/cmm (150-400) 09/05/17 14:38 MPV 8.7 fl 09/05/17 14:38 Neutrophils % 69.5 % (40.0-80.0) 09/05/17 14:38 Lymphocytes % 23.7 % (20.0-50.0) 09/05/17 14:38 Monocytes % 5.0 % (2.0-10.0) 09/05/17 14:38 Eosinophils % 1.8 % (0.0-5.0) 09/05/17 14:38 Basophils % 0.0 % (0.0-2.0) 09/05/17 14:38 Sodium 134 mEq/L (136-145) L 09/05/17 14:38 Potassium 3.3 mEq/L (3.5-5.1) L 09/05/17 14:38 Chloride 93 mEq/L (98-107) L 09/05/17 14:38 Carbon Dioxide 35.7 mEq/L (21.0-31.0) H 09/05/17 14:38 Anion Gap 8.6 (7.0-16.0) 09/05/17 14:38 BUN 6 mg/dL (7-25) L 09/05/17 14:38 Creatinine 0.4 mg/dL (0.6-1.2) L 09/05/17 14:38 Est GFR ( Amer) TNP 09/05/17 14:38 Est GFR (Non-Af Amer) TNP 09/05/17 14:38 BUN/Creatinine Ratio 15.0 09/05/17 14:38 Glucose 102 mg/dL (70-105) 09/05/17 14:38 Hemoglobin A1c % 4.4 % (4.0-6.0) 09/05/17 14:38 Calcium 9.2 mg/dL (8.6-10.3) 09/05/17 14:38 Total Bilirubin 0.4 mg/dL (0.3-1.0) 09/05/17 14:38 AST 12 U/L (13-39) L 09/05/17 14:38 ALT 4 U/L (7-52) L 09/05/17 14:38 Alkaline Phosphatase 97 U/L (34-104) 09/05/17 14:38 Total Protein 5.9 gm/dL (6.0-8.3) L 09/05/17 14:38 Albumin 3.1 gm/dL (3.7-5.3) L 09/05/17 14:38 Triglycerides 73 mg/dL (<150) 09/05/17 14:38 Cholesterol 132 mg/dL (<200) 09/05/17 14:38 LDL Cholesterol Direct 70 mg/dL (75-193) L 09/05/17 14:38 HDL Cholesterol 40 mg/dL (23-92) 09/05/17 14:38 TSH 0.60 uIU/ml (0.34-5.60) 09/05/17 14:38 Urine Source CATH 09/05/17 15:09 Urine Color YELLOW 09/05/17 15:09 Urine Clarity CLOUDY (CLEAR) H 09/05/17 15:09 Urine pH 7.5 (4.6 - 8.0) 09/05/17 15:09 Ur Specific [place] 1.010 (1.005-1.030) 09/05/17 15:09 Urine Protein NEGATIVE mg/dL (NEGATIVE) 09/05/17 15:09 Urine Glucose (UA) NEGATIVE mg/dL (NEGATIVE) 09/05/17 15:09 Urine Ketones NEGATIVE mg/dL (NEGATIVE) 09/05/17 15:09 Urine Blood MODERATE (NEGATIVE) H 09/05/17 15:09 Urine Nitrate POSITIVE (NEGATIVE) H 09/05/17 15:09 Urine Bilirubin NEGATIVE (NEGATIVE) 09/05/17 15:09 Urine Urobilinogen 0.2 E.U./dL (0.2 - 1.0) 09/05/17 15:09 Ur Leukocyte Esterase LARGE (NEGATIVE) H 09/05/17 15:09 Urine RBC 5-10 /hpf (0-5) H 09/05/17 15:09 Urine WBC 50-100 /hpf (0-5) H 09/05/17 15:09 Ur Epithelial Cells FEW /lpf (FEW) 09/05/17 15:09 Urine Bacteria MANY /hpf (NONE SEEN) H 09/05/17 15:09 RPR NONREACTIVE (NONREACTIVE) 09/05/17 14:38 - Physical Exam Vitals and I&O: Vital Signs Temp 98.2 F 09/17/17 15:06 Pulse 68 09/17/17 19:09 Resp 20 09/17/17 19:09 BP 93/41 09/17/17 18:22 Pulse Ox 98 09/17/17 19:09 Intake & Output 09/17/17 09/17/17 09/18/17 06:59 18:59 06:59 Intake Total 360 1500 Balance 360 1500 Intake: Oral 360 1500 Other: # Voids 2 3 # Bowel Movements 0 Active Medications: Current Medications Acetaminophen (Tylenol) 650 mg PO Q6H PRN PRN Reason: mild pain Stop: 11/04/17 20:39 Last Admin: 09/13/17 17:46 Dose: 650 mg Al Hydrox/Mg Hydrox/Simethicone (Maalox) 30 ml PO Q6HR PRN PRN Reason: Upset Stomach / Indigestion Stop: 11/04/17 20:39 Albuterol/Ipratropium (Duoneb Neb) 3 ml HHN [id number] GOPAL Stop: 11/05/17 06:59 Last Admin: 09/17/17 19:08 Dose: 3 ml Artificial Tears (Artificial Tears Ophth Soln) 1 drop EACH EYE DAILY [facility], [facility] Stop: 11/05/17 08:59 Last Admin: 09/17/17 09:40 Dose: 1 drop Aspirin (Aspirin Chewable) 81 mg PO DAILY [facility] Stop: 11/05/17 08:59 Last Admin: 09/17/17 09:38 Dose: 81 mg Atorvastatin Calcium (Lipitor) 20 mg PO HS [facility], [facility]; Protocol Stop: 11/05/17 20:59 Last Admin: 09/17/17 20:36 Dose: 20 mg Bisacodyl (Dulcolax 10 Mg Supp) 10 mg RC DAILY PRN PRN Reason: no bm x3 days Stop: 11/04/17 20:39 Carvedilol (Coreg) 3.125 mg PO BID [facility]1983 Stop: 11/05/17 08:59 Last Admin: 09/17/17 18:22 Dose: Not Given Clotrimazole (Lotrimin 1% Cream) 1 appl TP DAILY [facility] Stop: 11/05/17 08:59 Last Admin: 09/17/17 09:40 Dose: 1 appl Diphenhydramine HCl (Benadryl) 25 mg PO Q6H PRN PRN Reason: Itching Stop: 11/04/17 20:39 Docusate Sodium (Colace) 250 mg PO BID [facility] Stop: 11/05/17 08:59 Last Admin: 09/17/17 18:21 Dose: 250 mg Escitalopram Oxalate (Lexapro) 20 mg PO HS [facility]; Protocol Stop: 11/05/17 20:59 Last Admin: 09/17/17 20:36 Dose: 20 mg Famotidine (Pepcid) 40 mg PO DAILY [facility] Stop: 11/05/17 08:59 Last Admin: 09/17/17 09:37 Dose: 40 mg Fentanyl (Duragesic 75 Mcg/Hr Tdm Patch) 1 patch TD Q72HR [facility]; Protocol Stop: 11/05/17 08:59 Last Admin: 09/15/17 09:33 Dose: 1 patch Ferrous Sulfate (Iron) 325 mg PO DAILY [facility]1983 Stop: 11/05/17 08:59 Last Admin: 09/17/17 09:37 Dose: 325 mg Furosemide (Lasix) 20 mg PO BID [facility] Stop: 11/05/17 08:59 Last Admin: 09/17/17 18:20 Dose: Not Given Ketotifen Fumarate (Zaditor 0.025% Ophth Soln) 1 drop EACH EYE DAILY GOPAL Stop: 11/05/17 08:59 Last Admin: 09/17/17 09:40 Dose: 1 drop Lactobacillus Rhamnosus (Culturelle 15b) 1 each PO DAILY GOPAL Stop: 11/05/17 08:59 Last Admin: 09/17/17 09:37 Dose: 1 each Lorazepam (Ativan) 0.5 mg PO BID PRN; Protocol PRN Reason: Anxiety Stop: 11/04/17 20:39 Last Admin: 09/14/17 22:01 Dose: 0.5 mg Mupirocin (Bactroban Oint) 1 appl NS BID GOPAL Stop: 11/06/17 08:59 Last Admin: 09/17/17 18:20 Dose: 1 appl Ondansetron HCl (Zofran Odt) 4 mg PO Q12H PRN PRN Reason: Nausea / Vomiting Stop: 11/04/17 20:39 Last Admin: 09/15/17 17:53 Dose: 4 mg Oxycodone HCl (Oxycontin) 10 mg PO Q12HR GOPAL Stop: 11/12/17 20:59 Last Admin: 09/17/17 20:37 Dose: 10 mg Risperidone (Risperdal) 0.25 mg PO BID GOPAL; Protocol Stop: 11/14/17 08:59 Last Admin: 09/17/17 18:21 Dose: 0.25 mg Sodium Chloride ([place] Nasal [place]) 1 spr NS Q12HR GOPAL Stop: 11/04/17 20:59 Last Admin: 09/17/17 20:40 Dose: 1 spr Sodium Phosphate (Fleet Enema) 135 ml RC DAILY PRN PRN Reason: If Dulcolax ineffective Stop: 11/04/17 20:39 Trazodone HCl (Desyrel) 50 mg PO HS GOPAL; Protocol Stop: 11/04/17 20:59 Last Admin: 09/17/17 20:36 Dose: 50 mg Zolpidem Tartrate (Ambien) 5 mg PO HS PRN PRN Reason: Insomnia Stop: 11/04/17 20:59 Last Admin: 09/17/17 00:00 Dose: 5 mg General: demented HEENT: NC/AT, PERRLA, EOMI, anicteric sclerae, throat clear Neck: Supple, No JVD, No thyromegaly, +2 carotid pulse wo bruit, No LAD Lungs: CTAB Cardiovascular: RRR, Normal S1, Normal S2, without murmur Abdomen: soft, non-tender, non-distended Neurological: no change Internal Medicine Assmt/Plan - Assessment Assessment: 1.HTN. 2.HYPERLIPIDEMIA. 3.DEMENTIA. - Plan Plan: CONTINUE ON CURRENT MEDICATION AND DIET. Nutritional Asmnt/Malnutr-PDOC - Dietary Evaluation Malnutrition Findings (Please click <Entered> for more info): Nutritional Asmnt/Malnutrition Start: 09/09/17 15: 56 Text: Status: Complete Freq: Protocol: Document 09/09/17 15:56 ANDREA (Rec: 09/09/17 16:10 KP [email or web address]) Nutritional Asmnt/Malnutrition Patient General Information Nutritional Screening Low Risk Diagnosis depression Pertinent Medical Hx/Surgical Hx hyperlipidemia, HTn, DJD, dementia, psychosis Subjective Information Pt seen in bed having lunch at time of visit. Pt complained of month source and not able to put on denture. Pt only can eat the soup, pears, dinner roll and veggies. Offered other food, pt refused and stated she was not hungry. PO intake 25-50% over the past 2 days. Usually was 50-100%. Pt is on linezolid noted, not appropriate for nutrition education of food and drug interaction d/t cognition status at this time. Current Diet Order/ Nutrition Support regular Pertinent Medications colace, iron, lasix, culturelle Pertinent Labs 09/05 Na 134, K 3.3, Cl 93, BUN 6, Cr 0.4, glucose 102, A1c 4 .4 Nutritional Hx/Data Height 1.57 m Height (Calculated Centimeters) 157.5 Current Weight (lbs) 98.883 kg Weight (Calculated Kilograms) 98.9 Weight (Calculated Grams) 72311.1 [place] Body Weight 110 Body Mass Index (BMI) 39.9 Weight Status Obese GI Symptoms GI Symptoms None Last BM no BM on 09/06 Skin Integrity/Comment: Mark Ladd Current %PO Poor (25-49%) Estimated Nutritional Goals BEE in Kcals: Adj wt of IBW Calories/Kcals/Kg 25-30 Kcals Calculated 7106-3480 Protein: Adj wt of IBW Protein g/k.8-1 Protein Calculated 50-62 Fluid: ml 1550-1860ml (1ml/kcal) Nutritional Problem 1. Problem Problem inadequate food intake Etiology chowing difficulty without denture d/t month sour Signs/Symptoms: PO intake 25-50% Malnutrition Alert Is there a minimum of two criteria No selected? Query Text:Check all the applicable criteria. A minimum of two criteria are recommended for diagnosis of either severe or non-severe malnutrition. Malnutrition Related to Morbid Obesity Malnutrition related to morbid obesity No Intervention/Recommendation Comments 1. Spoke wtih RN Aroldo, keep monitor diet tolerance. If pt not able to use denture and not tolerate diet, consider requestion alternatives. 2. Monitor PO intake, wt, labs and skin integrity 3. F/U as moderate risk in 3-5 days, 09/12-09/14, PO check Expected Outcomes/Goals Expected Outcomes/Goals 1. PO intake to meet at least 75% of nutritional needs. 2. Wt stability, skin to remain intact, labs to approach WNL.
--- NOTE | 2017-09-18 00:21 | Progress Notes ---
DATE: 09/17/[address] Mckenzie. SUBJECTIVE: Case was discussed with staff of the patient, reviewed records. The patient continues to be irritable. The patient continues to isolate in her bed. She is overweight. She is unable to make safe plan for self-care. She continues to be unpredictable and impulsive. She likes to be left alone. She continues to be depressed. No side effects with the medication, no sedation, no nausea, and no extrapyramidal symptoms. Her Risperdal was increased to 0.25 mg twice a day. We will continue to work with the patient in group therapy, milieu therapy, and adjust the medications as needed. JOB# [id number]
[2017-09-18] MEDS: Albuterol/Ipratropium Neb 3 ML AERS HHN SCH ×4 (07:06→20:10)
[2017-09-18] MEDS: fentaNYL 75 mcg/hr Tdm Patch TD SCH (09:15)
[2017-09-18] MEDS: Saline 0.65% Nasal Spray NS SCH ×2 (09:16→21:43)
[2017-09-18] MEDS: Polyvinyl Alcohol Ophth Soln 15 mL Bottle EACH EYE SCH (09:16)
[2017-09-18] MEDS: Aspirin 81mg Chewable Tab PO SCH (09:18)
[2017-09-18] MEDS: Ferrous Sulfate 325 MG TAB PO SCH (09:19)
[2017-09-18] MEDS: Lactobacillus Rhamnosus GG 15 Billion CFU CAP.SPRINK PO SCH (09:19)
--- NOTE | 2017-09-18 19:07 | Internal Medicine Prog Note ---
Internal Medicine Subjective - Subjective Service Date: 09/18/17 Patient seen and examined:: with staff (SHE FEELS WELL) Patient is:: awake, verbal, in bed, talking, confused Per staff patient has:: no adverse event Internal Medicine Objective - Results Result Diagrams: 09/05/17 14:38 09/05/17 14:38 Recent Labs: Laboratory Last Values WBC 9.3 Th/cmm (4.8-10.8) 09/05/17 14:38 RBC 3.21 Mil/cmm (3.80-5.20) L 09/05/17 14:38 Hgb 9.2 gm/dL (12-16) L 09/05/17 14:38 Hct 28.1 % (41.0-60) L 09/05/17 14:38 MCV 87.6 fl (81-100) 09/05/17 14:38 MCH 28.8 pg (27.0-31.0) 09/05/17 14:38 MCHC Differential 32.9 pg (28.0-36.0) 09/05/17 14:38 RDW 15.0 % (11.5-20.0) 09/05/17 14:38 Plt Count 251 Th/cmm (150-400) 09/05/17 14:38 MPV 8.7 fl 09/05/17 14:38 Neutrophils % 69.5 % (40.0-80.0) 09/05/17 14:38 Lymphocytes % 23.7 % (20.0-50.0) 09/05/17 14:38 Monocytes % 5.0 % (2.0-10.0) 09/05/17 14:38 Eosinophils % 1.8 % (0.0-5.0) 09/05/17 14:38 Basophils % 0.0 % (0.0-2.0) 09/05/17 14:38 Sodium 134 mEq/L (136-145) L 09/05/17 14:38 Potassium 3.3 mEq/L (3.5-5.1) L 09/05/17 14:38 Chloride 93 mEq/L (98-107) L 09/05/17 14:38 Carbon Dioxide 35.7 mEq/L (21.0-31.0) H 09/05/17 14:38 Anion Gap 8.6 (7.0-16.0) 09/05/17 14:38 BUN 6 mg/dL (7-25) L 09/05/17 14:38 Creatinine 0.4 mg/dL (0.6-1.2) L 09/05/17 14:38 Est GFR ( Amer) TNP 09/05/17 14:38 Est GFR (Non-Af Amer) TNP 09/05/17 14:38 BUN/Creatinine Ratio 15.0 09/05/17 14:38 Glucose 102 mg/dL (70-105) 09/05/17 14:38 Hemoglobin A1c % 4.4 % (4.0-6.0) 09/05/17 14:38 Calcium 9.2 mg/dL (8.6-10.3) 09/05/17 14:38 Total Bilirubin 0.4 mg/dL (0.3-1.0) 09/05/17 14:38 AST 12 U/L (13-39) L 09/05/17 14:38 ALT 4 U/L (7-52) L 09/05/17 14:38 Alkaline Phosphatase 97 U/L (34-104) 09/05/17 14:38 Total Protein 5.9 gm/dL (6.0-8.3) L 09/05/17 14:38 Albumin 3.1 gm/dL (3.7-5.3) L 09/05/17 14:38 Triglycerides 73 mg/dL (<150) 09/05/17 14:38 Cholesterol 132 mg/dL (<200) 09/05/17 14:38 LDL Cholesterol Direct 70 mg/dL (75-193) L 09/05/17 14:38 HDL Cholesterol 40 mg/dL (23-92) 09/05/17 14:38 TSH 0.60 uIU/ml (0.34-5.60) 09/05/17 14:38 Urine Source CATH 09/05/17 15:09 Urine Color YELLOW 09/05/17 15:09 Urine Clarity CLOUDY (CLEAR) H 09/05/17 15:09 Urine pH 7.5 (4.6 - 8.0) 09/05/17 15:09 Ur Specific [place] 1.010 (1.005-1.030) 09/05/17 15:09 Urine Protein NEGATIVE mg/dL (NEGATIVE) 09/05/17 15:09 Urine Glucose (UA) NEGATIVE mg/dL (NEGATIVE) 09/05/17 15:09 Urine Ketones NEGATIVE mg/dL (NEGATIVE) 09/05/17 15:09 Urine Blood MODERATE (NEGATIVE) H 09/05/17 15:09 Urine Nitrate POSITIVE (NEGATIVE) H 09/05/17 15:09 Urine Bilirubin NEGATIVE (NEGATIVE) 09/05/17 15:09 Urine Urobilinogen 0.2 E.U./dL (0.2 - 1.0) 09/05/17 15:09 Ur Leukocyte Esterase LARGE (NEGATIVE) H 09/05/17 15:09 Urine RBC 5-10 /hpf (0-5) H 09/05/17 15:09 Urine WBC 50-100 /hpf (0-5) H 09/05/17 15:09 Ur Epithelial Cells FEW /lpf (FEW) 09/05/17 15:09 Urine Bacteria MANY /hpf (NONE SEEN) H 09/05/17 15:09 RPR NONREACTIVE (NONREACTIVE) 09/05/17 14:38 - Physical Exam Vitals and I&O: Vital Signs Temp 97.9 F 09/18/17 15:16 Pulse 72 09/18/17 17:21 Resp 20 09/18/17 15:16 BP 99/57 09/18/17 17:22 Pulse Ox 98 09/18/17 15:16 Intake & Output 09/18/17 09/18/17 09/19/17 06:59 18:59 06:59 Intake Total 120 Balance 120 Intake: Oral 120 Other: # Voids 3 Active Medications: Current Medications Acetaminophen (Tylenol) 650 mg PO Q6H PRN PRN Reason: mild pain Stop: 11/04/17 20:39 Last Admin: 09/13/17 17:46 Dose: 650 mg Al Hydrox/Mg Hydrox/Simethicone (Maalox) 30 ml PO Q6HR PRN PRN Reason: Upset Stomach / Indigestion Stop: 11/04/17 20:39 Albuterol/Ipratropium (Duoneb Neb) 3 ml HHN [id number] [facility] Stop: 11/05/17 06:59 Last Admin: 09/18/17 14:03 Dose: 3 ml Artificial Tears (Artificial Tears Ophth Soln) 1 drop EACH EYE DAILY [facility] Stop: 11/05/17 08:59 Last Admin: 09/18/17 09:16 Dose: 1 drop Aspirin (Aspirin Chewable) 81 mg PO DAILY [facility] Stop: 11/05/17 08:59 Last Admin: 09/18/17 09:18 Dose: 81 mg Atorvastatin Calcium (Lipitor) 20 mg PO HS [facility]; Protocol Stop: 11/05/17 20:59 Last Admin: 09/17/17 20:36 Dose: 20 mg Bisacodyl (Dulcolax 10 Mg Supp) 10 mg RC DAILY PRN PRN Reason: no bm x3 days Stop: 11/04/17 20:39 Carvedilol (Coreg) 3.125 mg PO BID [facility] Stop: 11/05/17 08:59 Last Admin: 09/18/17 17:21 Dose: Not Given Clotrimazole (Lotrimin 1% Cream) 1 appl TP DAILY [facility] Stop: 11/05/17 08:59 Last Admin: 09/18/17 09:17 Dose: 1 appl Diphenhydramine HCl (Benadryl) 25 mg PO Q6H PRN PRN Reason: Itching Stop: 11/04/17 20:39 Docusate Sodium (Colace) 250 mg PO BID [facility] Stop: 11/05/17 08:59 Last Admin: 09/18/17 17:21 Dose: 250 mg Escitalopram Oxalate (Lexapro) 20 mg PO HS [facility]; Protocol Stop: 11/05/17 20:59 Last Admin: 09/17/17 20:36 Dose: 20 mg Famotidine (Pepcid) 40 mg PO DAILY [facility] Stop: 11/05/17 08:59 Last Admin: 09/18/17 09:17 Dose: 40 mg Fentanyl (Duragesic 75 Mcg/Hr Tdm Patch) 1 patch TD Q72HR [facility]; Protocol Stop: 11/05/17 08:59 Last Admin: 09/18/17 09:15 Dose: 1 patch Ferrous Sulfate (Iron) 325 mg PO DAILY [facility] Stop: 11/05/17 08:59 Last Admin: 09/18/17 09:19 Dose: 325 mg Furosemide (Lasix) 20 mg PO BID [facility] Stop: 11/05/17 08:59 Last Admin: 09/18/17 17:22 Dose: Not Given Ketotifen Fumarate (Zaditor 0.025% [facility]) 1 drop EACH EYE DAILY GOPAL Stop: 11/05/17 08:59 Last Admin: 09/18/17 09:16 Dose: 1 drop Lactobacillus Rhamnosus (Culturelle 15b) 1 each PO DAILY GOPAL Stop: 11/05/17 08:59 Last Admin: 09/18/17 09:19 Dose: 1 each Lorazepam (Ativan) 0.5 mg PO BID PRN; Protocol PRN Reason: Anxiety Stop: 11/04/17 20:39 Last Admin: 09/14/17 22:01 Dose: 0.5 mg Mupirocin (Bactroban Oint) 1 appl NS BID GOPAL Stop: 11/06/17 08:59 Last Admin: 09/18/17 17:23 Dose: 1 appl Ondansetron HCl (Zofran Odt) 4 mg PO Q12H PRN PRN Reason: Nausea / Vomiting Stop: 11/04/17 20:39 Last Admin: 09/15/17 17:53 Dose: 4 mg Oxycodone HCl (Oxycontin) 10 mg PO Q12HR GOPAL Stop: 11/12/17 20:59 Last Admin: 09/18/17 09:17 Dose: 10 mg Risperidone (Risperdal) 0.25 mg PO BID GOPAL; Protocol Stop: 11/14/17 08:59 Last Admin: 09/18/17 17:23 Dose: 0.25 mg Sodium Chloride ([place] Nasal [place]) 1 spr NS Q12HR GOPAL Stop: 11/04/17 20:59 Last Admin: 09/18/17 09:16 Dose: 1 spr Sodium Phosphate (Fleet Enema) 135 ml RC DAILY PRN PRN Reason: If Dulcolax ineffective Stop: 11/04/17 20:39 Trazodone HCl (Desyrel) 50 mg PO HS GOPAL; Protocol Stop: 11/04/17 20:59 Last Admin: 09/17/17 20:36 Dose: 50 mg Zolpidem Tartrate (Ambien) 5 mg PO HS PRN PRN Reason: Insomnia Stop: 11/04/17 20:59 Last Admin: 09/17/17 00:00 Dose: 5 mg General: demented HEENT: NC/AT, PERRLA, EOMI, anicteric sclerae, throat clear Neck: Supple, No JVD, No thyromegaly, +2 carotid pulse wo bruit, No LAD Lungs: CTAB Cardiovascular: RRR, Normal S1, Normal S2, without murmur Abdomen: soft, non-tender, non-distended Neurological: no change Internal Medicine Assmt/Plan - Assessment Assessment: 1.HTN. 2.HYPERLIPIDEMIA. 3.DEMENTIA. - Plan Plan: CONTINUE ON CURRENT MEDICATION AND DIET. Nutritional Asmnt/Malnutr-PDOC - Dietary Evaluation Malnutrition Findings (Please click <Entered> for more info): Nutritional Asmnt/Malnutrition Start: 09/09/17 15: 56 Text: Status: Complete Freq: Protocol: Document 09/09/17 15:56 LCHENG (Rec: 09/09/17 16:10 LCHENG [email or web address]) Nutritional Asmnt/Malnutrition Patient General Information Nutritional Screening Low Risk Diagnosis depression Pertinent Medical Hx/Surgical Hx hyperlipidemia, HTn, DJD, dementia, psychosis Subjective Information Pt seen in bed having lunch at time of visit. Pt complained of month source and not able to put on denture. Pt only can eat the soup, pears, dinner roll and veggies. Offered other food, pt refused and stated she was not hungry. PO intake 25-50% over the past 2 days. Usually was 50-100%. Pt is on linezolid noted, not appropriate for nutrition education of food and drug interaction d/t cognition status at this time. Current Diet Order/ Nutrition Support regular Pertinent Medications colace, iron, lasix, culturelle Pertinent Labs 09/05 Na 134, K 3.3, Cl 93, BUN 6, Cr 0.4, glucose 102, A1c 4 .4 Nutritional Hx/Data Height 1.57 m Height (Calculated Centimeters) 157.5 Current Weight (lbs) 98.883 kg Weight (Calculated Kilograms) 98.9 Weight (Calculated Grams) 40510.1 [place] Body Weight 110 Body Mass Index (BMI) 39.9 Weight Status Obese GI Symptoms GI Symptoms None Last BM no BM on 09/06 Skin Integrity/Comment: Mark Ladd Current %PO Poor (25-49%) Estimated Nutritional Goals BEE in Kcals: Adj wt of IBW Calories/Kcals/Kg 25-30 Kcals Calculated 6611-0619 Protein: Adj wt of IBW Protein g/k.8-1 Protein Calculated 50-62 Fluid: ml 1550-1860ml (1ml/kcal) Nutritional Problem 1. Problem Problem inadequate food intake Etiology chowing difficulty without denture d/t month sour Signs/Symptoms: PO intake 25-50% Malnutrition Alert Is there a minimum of two criteria No selected? Query Text:Check all the applicable criteria. A minimum of two criteria are recommended for diagnosis of either severe or non-severe malnutrition. Malnutrition Related to Morbid Obesity Malnutrition related to morbid obesity No Intervention/Recommendation Comments 1. Spoke wtih RN Aroldo, keep monitor diet tolerance. If pt not able to use denture and not tolerate diet, consider requestion alternatives. 2. Monitor PO intake, wt, labs and skin integrity 3. F/U as moderate risk in 3-5 days, 09/12-09/14, PO check Expected Outcomes/Goals Expected Outcomes/Goals 1. PO intake to meet at least 75% of nutritional needs. 2. Wt stability, skin to remain intact, labs to approach WNL.
[2017-09-18] MEDS: Atorvastatin Calcium 10 MG TAB PO SCH (20:59)
[2017-09-19] MEDS: Albuterol/Ipratropium Neb 3 ML AERS HHN SCH ×4 (06:46→18:50)
[2017-09-19] MEDS: Ferrous Sulfate 325 MG TAB PO SCH (09:53)
[2017-09-19] MEDS: Aspirin 81mg Chewable Tab PO SCH (09:54)
[2017-09-19] MEDS: Saline 0.65% Nasal Spray NS SCH ×2 (09:55→21:22)
[2017-09-19] MEDS: Lactobacillus Rhamnosus GG 15 Billion CFU CAP.SPRINK PO SCH (09:55)
[2017-09-19] MEDS: Polyvinyl Alcohol Ophth Soln 15 mL Bottle EACH EYE SCH (09:57)
--- NOTE | 2017-09-19 10:01 | Progress Notes ---
DATE: 09/18/2017 Chart reviewed and the patient interviewed. Also, discussed the patient's condition with the staff and reviewed records and labs. The patient continued to be confused and she is still forgetful and needs lots of redirections. The patient also is still calling the nurses all the time and unable to express her needs. She also is still easily agitated and easily irritable. Otherwise, the patient is compliant with taking her medications with no side effects of medications. ASSESSMENT: The patient is still confused and considered to be gravely disabled. TREATMENT PLAN: Continue to monitor her behavior and her condition closely. Also, social work case manager is still trying to find placement for the patient with no success. We will continue to work on placement issue and continue to follow up. JOB# [id number]
--- NOTE | 2017-09-19 17:30 | Internal Medicine Prog Note ---
Internal Medicine Subjective - Subjective Patient is:: awake, verbal, in bed, talking, confused Per staff patient has:: no adverse event Internal Medicine Objective - Results Result Diagrams: 09/05/17 14:38 09/05/17 14:38 Recent Labs: Laboratory Last Values WBC 9.3 Th/cmm (4.8-10.8) 09/05/17 14:38 RBC 3.21 Mil/cmm (3.80-5.20) L 09/05/17 14:38 Hgb 9.2 gm/dL (12-16) L 09/05/17 14:38 Hct 28.1 % (41.0-60) L 09/05/17 14:38 MCV 87.6 fl (81-100) 09/05/17 14:38 MCH 28.8 pg (27.0-31.0) 09/05/17 14:38 MCHC Differential 32.9 pg (28.0-36.0) 09/05/17 14:38 RDW 15.0 % (11.5-20.0) 09/05/17 14:38 Plt Count 251 Th/cmm (150-400) 09/05/17 14:38 MPV 8.7 fl 09/05/17 14:38 Neutrophils % 69.5 % (40.0-80.0) 09/05/17 14:38 Lymphocytes % 23.7 % (20.0-50.0) 09/05/17 14:38 Monocytes % 5.0 % (2.0-10.0) 09/05/17 14:38 Eosinophils % 1.8 % (0.0-5.0) 09/05/17 14:38 Basophils % 0.0 % (0.0-2.0) 09/05/17 14:38 Sodium 134 mEq/L (136-145) L 09/05/17 14:38 Potassium 3.3 mEq/L (3.5-5.1) L 09/05/17 14:38 Chloride 93 mEq/L (98-107) L 09/05/17 14:38 Carbon Dioxide 35.7 mEq/L (21.0-31.0) H 09/05/17 14:38 Anion Gap 8.6 (7.0-16.0) 09/05/17 14:38 BUN 6 mg/dL (7-25) L 09/05/17 14:38 Creatinine 0.4 mg/dL (0.6-1.2) L 09/05/17 14:38 Est GFR ( Amer) TNP 09/05/17 14:38 Est GFR (Non-Af Amer) TNP 09/05/17 14:38 BUN/Creatinine Ratio 15.0 09/05/17 14:38 Glucose 102 mg/dL (70-105) 09/05/17 14:38 POC Glucose 292 MG/DL (70 - 105) H 09/19/17 12:39 Hemoglobin A1c % 4.4 % (4.0-6.0) 09/05/17 14:38 Calcium 9.2 mg/dL (8.6-10.3) 09/05/17 14:38 Total Bilirubin 0.4 mg/dL (0.3-1.0) 09/05/17 14:38 AST 12 U/L (13-39) L 09/05/17 14:38 ALT 4 U/L (7-52) L 09/05/17 14:38 Alkaline Phosphatase 97 U/L (34-104) 09/05/17 14:38 Total Protein 5.9 gm/dL (6.0-8.3) L 09/05/17 14:38 Albumin 3.1 gm/dL (3.7-5.3) L 09/05/17 14:38 Triglycerides 73 mg/dL (<150) 09/05/17 14:38 Cholesterol 132 mg/dL (<200) 09/05/17 14:38 LDL Cholesterol Direct 70 mg/dL (75-193) L 09/05/17 14:38 HDL Cholesterol 40 mg/dL (23-92) 09/05/17 14:38 TSH 0.60 uIU/ml (0.34-5.60) 09/05/17 14:38 Urine Source CATH 09/05/17 15:09 Urine Color YELLOW 09/05/17 15:09 Urine Clarity CLOUDY (CLEAR) H 09/05/17 15:09 Urine pH 7.5 (4.6 - 8.0) 09/05/17 15:09 Ur Specific [place] 1.010 (1.005-1.030) 09/05/17 15:09 Urine Protein NEGATIVE mg/dL (NEGATIVE) 09/05/17 15:09 Urine Glucose (UA) NEGATIVE mg/dL (NEGATIVE) 09/05/17 15:09 Urine Ketones NEGATIVE mg/dL (NEGATIVE) 09/05/17 15:09 Urine Blood MODERATE (NEGATIVE) H 09/05/17 15:09 Urine Nitrate POSITIVE (NEGATIVE) H 09/05/17 15:09 Urine Bilirubin NEGATIVE (NEGATIVE) 09/05/17 15:09 Urine Urobilinogen 0.2 E.U./dL (0.2 - 1.0) 09/05/17 15:09 Ur Leukocyte Esterase LARGE (NEGATIVE) H 09/05/17 15:09 Urine RBC 5-10 /hpf (0-5) H 09/05/17 15:09 Urine WBC 50-100 /hpf (0-5) H 09/05/17 15:09 Ur Epithelial Cells FEW /lpf (FEW) 09/05/17 15:09 Urine Bacteria MANY /hpf (NONE SEEN) H 09/05/17 15:09 RPR NONREACTIVE (NONREACTIVE) 09/05/17 14:38 - Physical Exam Vitals and I&O: Vital Signs Temp 98.5 F 09/19/17 14:00 Pulse 77 09/19/17 15:32 Resp 20 09/19/17 15:32 BP 105/52 09/19/17 14:00 Pulse Ox 97 09/19/17 15:32 Intake & Output 09/18/17 09/19/17 09/19/17 18:59 06:59 18:59 Intake Total 120 Balance 120 Intake: Oral 120 Other: # Voids 3 Active Medications: Current Medications Acetaminophen (Tylenol) 650 mg PO Q6H PRN PRN Reason: mild pain Stop: 11/04/17 20:39 Last Admin: 09/19/17 13:54 Dose: 650 mg Al Hydrox/Mg Hydrox/Simethicone (Maalox) 30 ml PO Q6HR PRN PRN Reason: Upset Stomach / Indigestion Stop: 11/04/17 20:39 Albuterol/Ipratropium (Duoneb Neb) [id number] [facility] Stop: 11/05/17 06:59 Last Admin: 09/19/17 15:32 Dose: 3 ml Artificial Tears (Artificial Tears Ophth Soln) 1 drop EACH EYE DA[address] [facility] Stop: 11/05/17 08:59 Last Admin: 09/19/17 09:57 Dose: 1 drop Aspirin (Aspirin Chewable) [address] [facility] Stop: 11/05/17 08:59 Last Admin: 09/19/17 09:54 Dose: 81 mg Atorvastatin Calcium (Lipitor) 20 mg PO HS [facility]; Protocol Stop: 11/05/17 20:59 Last Admin: 09/18/17 20:59 Dose: 20 mg Bisacodyl (Dulcolax 10 Mg Supp) 10 mg RC DAILY PRN PRN Reason: no bm x3 days Stop: 11/04/17 20:39 Carvedilol (Coreg) 3.[address] [facility] Stop: 11/05/17 08:59 Last Admin: 09/19/17 09:41 Dose: Not Given Clotrimazole (Lotrimin 1% Cream) [address] [facility] Stop: 11/05/17 08:59 Last Admin: 09/19/17 10:00 Dose: 1 appl Diphenhydramine HCl (Benadryl) 25 mg PO Q6H PRN PRN Reason: Itching Stop: 11/04/17 20:39 Docusate Sodium (Colace) [address] [facility] Stop: 11/05/17 08:59 Last Admin: 09/19/17 09:55 Dose: 250 mg Escitalopram Oxalate (Lexapro) [address] [facility]; Protocol Stop: 11/05/17 20:59 Last Admin: 09/18/17 20:59 Dose: 20 mg Famotidine (Pepcid) [address] [facility] Stop: 11/05/17 08:59 Last Admin: 09/19/17 09:52 Dose: 40 mg Fentanyl (Duragesic 75 Mcg/Hr Tdm Patch) [address] [facility]; Protocol Stop: 11/05/17 08:59 Last Admin: 09/18/17 09:15 Dose: 1 patch Ferrous Sulfate (Iron) [address] [facility] Stop: 11/05/17 08:59 Last Admin: 09/19/17 09:53 Dose: 325 mg Furosemide (Lasix) [address] [facility] Stop: 11/05/17 08:59 Last Admin: 09/19/17 09:42 Dose: Not Given Ketotifen Fumarate (Zaditor 0.025% [facility] Soln) 1 drop EACH EYE DAILY [facility] Stop: 11/05/17 08:59 Last Admin: 09/19/17 10:00 Dose: 1 drop Lactobacillus Rhamnosus (Culturelle 15b) 1 each PO DAILY [facility] Stop: 11/05/17 08:59 Last Admin: 09/19/17 09:55 Dose: 1 each Lorazepam (Ativan) 0.5 mg PO BID PRN; Protocol PRN Reason: Anxiety Stop: 11/04/17 20:39 Last Admin: 09/14/17 22:01 Dose: 0.5 mg Mupirocin (Bactroban Oint) 1 appl NS BID [facility] Stop: 11/06/17 08:59 Last Admin: 09/19/17 10:00 Dose: 1 appl Ondansetron HCl (Zofran Odt) 4 mg PO Q12H PRN PRN Reason: Nausea / Vomiting Stop: 11/04/17 20:39 Last Admin: 09/15/17 17:53 Dose: 4 mg Oxycodone HCl (Oxycontin) 10 mg PO Q12HR [facility] Stop: 11/12/17 20:59 Last Admin: 09/19/17 09:54 Dose: 10 mg Risperidone (Risperdal) 0.25 mg PO DAILY [facility]; Protocol Stop: 11/18/17 08:59 Last Admin: 09/19/17 10:00 Dose: 0.25 mg Risperidone (Risperdal) 0.5 mg PO HS [facility]; Protocol Stop: 11/18/17 20:59 Sodium Chloride ([place] Nasal [place]) 1 spr NS Q12HR [facility] Stop: 11/04/17 20:59 Last Admin: 09/19/17 09:55 Dose: 1 spr Sodium Phosphate (Fleet Enema) 135 ml RC DAILY PRN PRN Reason: If Dulcolax ineffective Stop: 11/04/17 20:39 Trazodone HCl (Desyrel) 50 mg PO HS [facility]; Protocol Stop: 11/04/17 20:59 Last Admin: 09/18/17 20:59 Dose: 50 mg Zolpidem Tartrate (Ambien) 5 mg PO HS PRN PRN Reason: Insomnia Stop: 11/04/17 20:59 Last Admin: 09/18/17 20:59 Dose: 5 mg General: demented HEENT: NC/AT, PERRLA, EOMI, anicteric sclerae, throat clear Neck: Supple, No JVD, No thyromegaly, +2 carotid pulse wo bruit, No LAD Lungs: CTAB Cardiovascular: RRR, Normal S1, Normal S2, without murmur Abdomen: soft, non-tender, non-distended Neurological: no change Internal Medicine Assmt/Plan - Assessment Assessment: 1.HTN. 2.HYPERLIPIDEMIA. 3.DEMENTIA. - Plan Plan: CONTINUE ON CURRENT MEDICATION AND DIET. Nutritional Asmnt/Malnutr-PDOC - Dietary Evaluation Malnutrition Findings (Please click <Entered> for more info): Nutritional Asmnt/Malnutrition Start: 09/09/17 15: 56 Text: Status: Complete Freq: Protocol: Document 09/09/17 15:56 RADHA (Rec: 09/09/17 16:10 RADHA [email or web address]) Nutritional Asmnt/Malnutrition Patient General Information Nutritional Screening Low Risk Diagnosis depression Pertinent Medical Hx/Surgical Hx hyperlipidemia, HTn, DJD, dementia, psychosis Subjective Information Pt seen in bed having lunch at time of visit. Pt complained of month source and not able to put on denture. Pt only can eat the soup, pears, dinner roll and veggies. Offered other food, pt refused and stated she was not hungry. PO intake 25-50% over the past 2 days. Usually was 50-100%. Pt is on linezolid noted, not appropriate for nutrition education of food and drug interaction d/t cognition status at this time. Current Diet Order/ Nutrition Support regular Pertinent Medications colace, iron, lasix, culturelle Pertinent Labs 09/05 Na 134, K 3.3, Cl 93, BUN 6, Cr 0.4, glucose 102, A1c 4 .4 Nutritional Hx/Data Height 1.57 m Height (Calculated Centimeters) 157.5 Current Weight (lbs) 98.883 kg Weight (Calculated Kilograms) 98.9 Weight (Calculated Grams) 48070.1 [place] Body Weight 110 Body Mass Index (BMI) 39.9 Weight Status Obese GI Symptoms GI Symptoms None Last BM no BM on 09/06 Skin Integrity/Comment: Mark 17 Current %PO Poor (25-49%) Estimated Nutritional Goals BEE in Kcals: Adj wt of IBW Calories/Kcals/Kg 25-30 Kcals Calculated 0691-1222 Protein: Adj wt of IBW Protein g/k.8-1 Protein Calculated 50-62 Fluid: ml 1550-1860ml (1ml/kcal) Nutritional Problem 1. Problem Problem inadequate food intake Etiology chowing difficulty without denture d/t month sour Signs/Symptoms: PO intake 25-50% Malnutrition Alert Is there a minimum of two criteria No selected? Query Text:Check all the applicable criteria. A minimum of two criteria are recommended for diagnosis of either severe or non-severe malnutrition. Malnutrition Related to Morbid Obesity Malnutrition related to morbid obesity No Intervention/Recommendation Comments 1. Spoke wtih RN Aroldo, keep monitor diet tolerance. If pt not able to use denture and not tolerate diet, consider requestion alternatives. 2. Monitor PO intake, wt, labs and skin integrity 3. F/U as moderate risk in 3-5 days, 09/12-09/14, PO check Expected Outcomes/Goals Expected Outcomes/Goals 1. PO intake to meet at least 75% of nutritional needs. 2. Wt stability, skin to remain intact, labs to approach WNL.
[2017-09-19] MEDS: Atorvastatin Calcium 10 MG TAB PO SCH (20:48)
[2017-09-20] MEDS: Albuterol/Ipratropium Neb 3 ML AERS HHN SCH ×4 (06:59→19:51)
[2017-09-20] MEDS: Ferrous Sulfate 325 MG TAB PO SCH (08:49)
[2017-09-20] MEDS: Lactobacillus Rhamnosus GG 15 Billion CFU CAP.SPRINK PO SCH (08:49)
[2017-09-20] MEDS: Aspirin 81mg Chewable Tab PO SCH (08:49)
[2017-09-20] MEDS: Saline 0.65% Nasal Spray NS SCH ×2 (08:52→22:07)
[2017-09-20] MEDS: Polyvinyl Alcohol Ophth Soln 15 mL Bottle EACH EYE SCH (08:53)
--- NOTE | 2017-09-20 09:29 | Progress Notes ---
DATE: SUBJECTIVE: Chart reviewed and the patient interviewed. Also discussed the patient's condition with the staff and reviewed records and labs. The patient is less demanding and she is less needy. The patient is still withdrawn and stays by herself most of the time. She also is still forgetful. The patient also still has episodes of irritability and agitation. Otherwise, the patient is compliant with taking her medications with no side effects of medications. ASSESSMENT: The patient is still agitated, but showing some improvement. TREATMENT PLAN: Continue to monitor her behavior and her condition closely. Also, we will increase Risperdal to 0.25 mg in the morning and 0.5 mg at bedtime and continue to follow up. [facility]# [id number]
--- NOTE | 2017-09-20 15:59 | Internal Medicine Prog Note ---
Internal Medicine Subjective - Subjective Service Date: 09/20/17 Patient seen and examined:: with staff (SHE FEELS BETTER,NO FEVER.) Patient is:: awake, verbal, in bed, talking, confused Per staff patient has:: no adverse event Internal Medicine Objective - Results Result Diagrams: 09/05/17 14:38 09/05/17 14:38 Recent Labs: Laboratory Last Values WBC 9.3 Th/cmm (4.8-10.8) 09/05/17 14:38 RBC 3.21 Mil/cmm (3.80-5.20) L 09/05/17 14:38 Hgb 9.2 gm/dL (12-16) L 09/05/17 14:38 Hct 28.1 % (41.0-60) L 09/05/17 14:38 MCV 87.6 fl (81-100) 09/05/17 14:38 MCH 28.8 pg (27.0-31.0) 09/05/17 14:38 MCHC Differential 32.9 pg (28.0-36.0) 09/05/17 14:38 RDW 15.0 % (11.5-20.0) 09/05/17 14:38 Plt Count 251 Th/cmm (150-400) 09/05/17 14:38 MPV 8.7 fl 09/05/17 14:38 Neutrophils % 69.5 % (40.0-80.0) 09/05/17 14:38 Lymphocytes % 23.7 % (20.0-50.0) 09/05/17 14:38 Monocytes % 5.0 % (2.0-10.0) 09/05/17 14:38 Eosinophils % 1.8 % (0.0-5.0) 09/05/17 14:38 Basophils % 0.0 % (0.0-2.0) 09/05/17 14:38 Sodium 134 mEq/L (136-145) L 09/05/17 14:38 Potassium 3.3 mEq/L (3.5-5.1) L 09/05/17 14:38 Chloride 93 mEq/L (98-107) L 09/05/17 14:38 Carbon Dioxide 35.7 mEq/L (21.0-31.0) H 09/05/17 14:38 Anion Gap 8.6 (7.0-16.0) 09/05/17 14:38 BUN 6 mg/dL (7-25) L 09/05/17 14:38 Creatinine 0.4 mg/dL (0.6-1.2) L 09/05/17 14:38 Est GFR ( Amer) TNP 09/05/17 14:38 Est GFR (Non-Af Amer) TNP 09/05/17 14:38 BUN/Creatinine Ratio 15.0 09/05/17 14:38 Glucose 102 mg/dL (70-105) 09/05/17 14:38 POC Glucose 292 MG/DL (70 - 105) H 09/19/17 12:39 Hemoglobin A1c % 4.4 % (4.0-6.0) 09/05/17 14:38 Calcium 9.2 mg/dL (8.6-10.3) 09/05/17 14:38 Total Bilirubin 0.4 mg/dL (0.3-1.0) 09/05/17 14:38 AST 12 U/L (13-39) L 09/05/17 14:38 ALT 4 U/L (7-52) L 09/05/17 14:38 Alkaline Phosphatase 97 U/L (34-104) 09/05/17 14:38 Total Protein 5.9 gm/dL (6.0-8.3) L 09/05/17 14:38 Albumin 3.1 gm/dL (3.7-5.3) L 09/05/17 14:38 Triglycerides 73 mg/dL (<150) 09/05/17 14:38 Cholesterol 132 mg/dL (<200) 09/05/17 14:38 LDL Cholesterol Direct 70 mg/dL (75-193) L 09/05/17 14:38 HDL Cholesterol 40 mg/dL (23-92) 09/05/17 14:38 TSH 0.60 uIU/ml (0.34-5.60) 09/05/17 14:38 Urine Source CATH 09/05/17 15:09 Urine Color YELLOW 09/05/17 15:09 Urine Clarity CLOUDY (CLEAR) H 09/05/17 15:09 Urine pH 7.5 (4.6 - 8.0) 09/05/17 15:09 Ur Specific [place] 1.010 (1.005-1.030) 09/05/17 15:09 Urine Protein NEGATIVE mg/dL (NEGATIVE) 09/05/17 15:09 Urine Glucose (UA) NEGATIVE mg/dL (NEGATIVE) 09/05/17 15:09 Urine Ketones NEGATIVE mg/dL (NEGATIVE) 09/05/17 15:09 Urine Blood MODERATE (NEGATIVE) H 09/05/17 15:09 Urine Nitrate POSITIVE (NEGATIVE) H 09/05/17 15:09 Urine Bilirubin NEGATIVE (NEGATIVE) 09/05/17 15:09 Urine Urobilinogen 0.2 E.U./dL (0.2 - 1.0) 09/05/17 15:09 Ur Leukocyte Esterase LARGE (NEGATIVE) H 09/05/17 15:09 Urine RBC 5-10 /hpf (0-5) H 09/05/17 15:09 Urine WBC 50-100 /hpf (0-5) H 09/05/17 15:09 Ur Epithelial Cells FEW /lpf (FEW) 09/05/17 15:09 Urine Bacteria MANY /hpf (NONE SEEN) H 09/05/17 15:09 RPR NONREACTIVE (NONREACTIVE) 09/05/17 14:38 - Physical Exam Vitals and I&O: Vital Signs Temp 98.5 F 09/19/17 14:00 Pulse 81 09/20/17 14:14 Resp 20 09/20/17 14:14 BP 105/59 09/20/17 08:50 Pulse Ox 95 09/20/17 14:14 Intake & Output 09/19/17 09/20/17 09/20/17 18:59 06:59 18:59 Intake Total 1200 Balance 1200 Intake: Oral 1200 Other: # Bowel Movements 1 Active Medications: Current Medications Acetaminophen (Tylenol) 650 mg PO Q6H PRN PRN Reason: mild pain Stop: 11/04/17 20:39 Last Admin: 09/19/17 13:54 Dose: 650 mg Al Hydrox/Mg Hydrox/Simethicone (Maalox) 30 ml PO Q6HR PRN PRN Reason: Upset Stomach / Indigestion Stop: 11/04/17 20:39 Albuterol/Ipratropium (Duoneb Neb) 3 ml HHN [id number] [facility] Stop: 11/05/17 06:59 Last Admin: 09/20/17 14:13 Dose: 3 ml Artificial Tears (Artificial Tears Ophth Soln) 1 drop EACH EYE DAILY [facility] Stop: 11/05/17 08:59 Last Admin: 09/20/17 08:53 Dose: 1 drop Aspirin (Aspirin Chewable) 81 mg PO DAILY [facility] Stop: 11/05/17 08:59 Last Admin: 09/20/17 08:49 Dose: 81 mg Atorvastatin Calcium (Lipitor) 20 mg PO HS [facility]; Protocol Stop: 11/05/17 20:59 Last Admin: 09/19/17 20:48 Dose: 20 mg Bisacodyl (Dulcolax 10 Mg Supp) 10 mg RC DAILY PRN PRN Reason: no bm x3 days Stop: 11/04/17 20:39 Carvedilol (Coreg) 3.125 mg PO BID [facility] Stop: 11/05/17 08:59 Last Admin: 09/20/17 08:50 Dose: Not Given Clotrimazole (Lotrimin 1% Cream) 1 appl TP DAILY [facility] Stop: 11/05/17 08:59 Last Admin: 09/20/17 09:39 Dose: 1 appl Diphenhydramine HCl (Benadryl) 25 mg PO Q6H PRN PRN Reason: Itching Stop: 11/04/17 20:39 Docusate Sodium (Colace) 250 mg PO BID [facility] Stop: 11/05/17 08:59 Last Admin: 09/20/17 08:47 Dose: 250 mg Escitalopram Oxalate (Lexapro) 20 mg PO HS [facility]; Protocol Stop: 11/05/17 20:59 Last Admin: 09/19/17 20:48 Dose: 20 mg Famotidine (Pepcid) 40 mg PO DAILY [facility] Stop: 11/05/17 08:59 Last Admin: 09/20/17 08:47 Dose: 40 mg Fentanyl (Duragesic 75 Mcg/Hr Tdm Patch) 1 patch TD Q72HR [facility]; Protocol Stop: 11/05/17 08:59 Last Admin: 09/18/17 09:15 Dose: 1 patch Ferrous Sulfate (Iron) 325 mg PO DAILY [facility] Stop: 11/05/17 08:59 Last Admin: 09/20/17 08:49 Dose: Not Given Furosemide (Lasix) 20 mg PO BID [facility] Stop: 11/05/17 08:59 Last Admin: 09/20/17 08:48 Dose: Not Given Ketotifen Fumarate (Zaditor 0.025% Ophth Soln) 1 drop EACH EYE DAILY [facility] Stop: 11/05/17 08:59 Last Admin: 09/20/17 08:53 Dose: 1 drop Lactobacillus Rhamnosus (Culturelle 15b) 1 each PO DAILY [facility] Stop: 11/05/17 08:59 Last Admin: 09/20/17 08:49 Dose: 1 each Lorazepam (Ativan) 0.5 mg PO BID PRN; Protocol PRN Reason: Anxiety Stop: 11/04/17 20:39 Last Admin: 09/14/17 22:01 Dose: 0.5 mg Mupirocin (Bactroban Oint) 1 appl NS BID [facility] Stop: 11/06/17 08:59 Last Admin: 09/20/17 08:52 Dose: 1 appl Ondansetron HCl (Zofran Odt) 4 mg PO Q12H PRN PRN Reason: Nausea / Vomiting Stop: 11/04/17 20:39 Last Admin: 09/15/17 17:53 Dose: 4 mg Oxycodone HCl (Oxycontin) 10 mg PO Q12HR [facility] Stop: 11/12/17 20:59 Last Admin: 09/20/17 08:51 Dose: 10 mg Risperidone (Risperdal) 0.25 mg PO DAILY [facility]; Protocol Stop: 11/18/17 08:59 Last Admin: 09/20/17 08:49 Dose: 0.25 mg Risperidone (Risperdal) 0.5 mg PO HS [facility]; Protocol Stop: 11/18/17 20:59 Last Admin: 09/19/17 20:48 Dose: 0.5 mg Sodium Chloride ([place] Nasal [place]) 1 spr NS Q12HR [facility] Stop: 11/04/17 20:59 Last Admin: 09/20/17 08:52 Dose: 1 spr Sodium Phosphate (Fleet Enema) 135 ml RC DAILY PRN PRN Reason: If Dulcolax ineffective Stop: 11/04/17 20:39 Trazodone HCl (Desyrel) 50 mg PO HS [facility]; Protocol Stop: 11/04/17 20:59 Last Admin: 09/19/17 20:49 Dose: 50 mg Zolpidem Tartrate (Ambien) 5 mg PO HS PRN PRN Reason: Insomnia Stop: 11/04/17 20:59 Last Admin: 09/19/17 20:48 Dose: 5 mg General: demented HEENT: NC/AT, PERRLA, EOMI, anicteric sclerae, throat clear Neck: Supple, No JVD, No thyromegaly, +2 carotid pulse wo bruit, No LAD Lungs: CTAB Cardiovascular: RRR, Normal S1, Normal S2, without murmur Abdomen: soft, non-tender, non-distended Neurological: no change Internal Medicine Assmt/Plan - Assessment Assessment: 1.HTN. 2.HYPERLIPIDEMIA. 3.DEMENTIA. - Plan Plan: CONTINUE ON CURRENT MEDICATION AND DIET. Nutritional Asmnt/Malnutr-PDOC - Dietary Evaluation Malnutrition Findings (Please click <Entered> for more info): Nutritional Asmnt/Malnutrition Start: 09/09/17 15: 56 Text: Status: Complete Freq: Protocol: Document 09/09/17 15:56 LCRADHA (Rec: 09/09/17 16:10 RADHA [email or web address]) Nutritional Asmnt/Malnutrition Patient General Information Nutritional Screening Low Risk Diagnosis depression Pertinent Medical Hx/Surgical Hx hyperlipidemia, HTn, DJD, dementia, psychosis Subjective Information Pt seen in bed having lunch at time of visit. Pt complained of month source and not able to put on denture. Pt only can eat the soup, pears, dinner roll and veggies. Offered other food, pt refused and stated she was not hungry. PO intake 25-50% over the past 2 days. Usually was 50-100%. Pt is on linezolid noted, not appropriate for nutrition education of food and drug interaction d/t cognition status at this time. Current Diet Order/ Nutrition Support regular Pertinent Medications colace, iron, lasix, culturelle Pertinent Labs 09/05 Na 134, K 3.3, Cl 93, BUN 6, Cr 0.4, glucose 102, A1c 4 .4 Nutritional Hx/Data Height 1.57 m Height (Calculated Centimeters) 157.5 Current Weight (lbs) 98.883 kg Weight (Calculated Kilograms) 98.9 Weight (Calculated Grams) 44219.1 [place] Body Weight 110 Body Mass Index (BMI) 39.9 Weight Status Obese GI Symptoms GI Symptoms None Last BM no BM on 6/15 Skin Integrity/Comment: [place] Current %PO Poor (25-49%) Estimated Nutritional Goals BEE in Kcals: Adj wt of IBW Calories/Kcals/Kg 25-30 Kcals Calculated 7741-9673 Protein: Adj wt of IBW Protein g/k.8-1 Protein Calculated 50-62 Fluid: ml 1550-1860ml (1ml/kcal) Nutritional Problem 1. Problem Problem inadequate food intake Etiology chowing difficulty without denture d/t month sour Signs/Symptoms: PO intake 25-50% Malnutrition Alert Is there a minimum of two criteria No selected? Query Text:Check all the applicable criteria. A minimum of two criteria are recommended for diagnosis of either severe or non-severe malnutrition. Malnutrition Related to Morbid Obesity Malnutrition related to morbid obesity No Intervention/Recommendation Comments 1. Spoke wtih RN Aroldo, keep monitor diet tolerance. If pt not able to use denture and not tolerate diet, consider requestion alternatives. 2. Monitor PO intake, wt, labs and skin integrity 3. F/U as moderate risk in 3-5 days, 09/12-09/14, PO check Expected Outcomes/Goals Expected Outcomes/Goals 1. PO intake to meet at least 75% of nutritional needs. 2. Wt stability, skin to remain intact, labs to approach WNL.
[2017-09-20] MEDS: Atorvastatin Calcium 10 MG TAB PO SCH (22:06)
[2017-09-21] MEDS: Albuterol/Ipratropium Neb 3 ML AERS HHN SCH ×4 (06:38→19:30)
[2017-09-21] MEDS: Ferrous Sulfate 325 MG TAB PO SCH (08:43)
[2017-09-21] MEDS: Lactobacillus Rhamnosus GG 15 Billion CFU CAP.SPRINK PO SCH (08:44)
[2017-09-21] MEDS: Aspirin 81mg Chewable Tab PO SCH (08:44)
[2017-09-21] MEDS: Polyvinyl Alcohol Ophth Soln 15 mL Bottle EACH EYE SCH (09:30)
[2017-09-21] MEDS: Saline 0.65% Nasal Spray NS SCH ×2 (09:30→21:18)
--- NOTE | 2017-09-21 10:56 | Internal Medicine Prog Note ---
Internal Medicine Subjective - Subjective Service Date: 09/21/17 Patient seen and examined:: with staff Patient is:: awake, verbal, in bed, talking, confused Per staff patient has:: no adverse event Internal Medicine Objective - Results Result Diagrams: 09/05/17 14:38 09/05/17 14:38 Recent Labs: Laboratory Last Values WBC 9.3 Th/cmm (4.8-10.8) 09/05/17 14:38 RBC 3.21 Mil/cmm (3.80-5.20) L 09/05/17 14:38 Hgb 9.2 gm/dL (12-16) L 09/05/17 14:38 Hct 28.1 % (41.0-60) L 09/05/17 14:38 MCV 87.6 fl (81-100) 09/05/17 14:38 MCH 28.8 pg (27.0-31.0) 09/05/17 14:38 MCHC Differential 32.9 pg (28.0-36.0) 09/05/17 14:38 RDW 15.0 % (11.5-20.0) 09/05/17 14:38 Plt Count 251 Th/cmm (150-400) 09/05/17 14:38 MPV 8.7 fl 09/05/17 14:38 Neutrophils % 69.5 % (40.0-80.0) 09/05/17 14:38 Lymphocytes % 23.7 % (20.0-50.0) 09/05/17 14:38 Monocytes % 5.0 % (2.0-10.0) 09/05/17 14:38 Eosinophils % 1.8 % (0.0-5.0) 09/05/17 14:38 Basophils % 0.0 % (0.0-2.0) 09/05/17 14:38 Sodium 134 mEq/L (136-145) L 09/05/17 14:38 Potassium 3.3 mEq/L (3.5-5.1) L 09/05/17 14:38 Chloride 93 mEq/L (98-107) L 09/05/17 14:38 Carbon Dioxide 35.7 mEq/L (21.0-31.0) H 09/05/17 14:38 Anion Gap 8.6 (7.0-16.0) 09/05/17 14:38 BUN 6 mg/dL (7-25) L 09/05/17 14:38 Creatinine 0.4 mg/dL (0.6-1.2) L 09/05/17 14:38 Est GFR ( Amer) TNP 09/05/17 14:38 Est GFR (Non-Af Amer) TNP 09/05/17 14:38 BUN/Creatinine Ratio 15.0 09/05/17 14:38 Glucose 102 mg/dL (70-105) 09/05/17 14:38 POC Glucose 292 MG/DL (70 - 105) H 09/19/17 12:39 Hemoglobin A1c % 4.4 % (4.0-6.0) 09/05/17 14:38 Calcium 9.2 mg/dL (8.6-10.3) 09/05/17 14:38 Total Bilirubin 0.4 mg/dL (0.3-1.0) 09/05/17 14:38 AST 12 U/L (13-39) L 09/05/17 14:38 ALT 4 U/L (7-52) L 09/05/17 14:38 Alkaline Phosphatase 97 U/L (34-104) 09/05/17 14:38 Total Protein 5.9 gm/dL (6.0-8.3) L 09/05/17 14:38 Albumin 3.1 gm/dL (3.7-5.3) L 09/05/17 14:38 Triglycerides 73 mg/dL (<150) 09/05/17 14:38 Cholesterol 132 mg/dL (<200) 09/05/17 14:38 LDL Cholesterol Direct 70 mg/dL (75-193) L 09/05/17 14:38 HDL Cholesterol 40 mg/dL (23-92) 09/05/17 14:38 TSH 0.60 uIU/ml (0.34-5.60) 09/05/17 14:38 Urine Source CATH 09/05/17 15:09 Urine Color YELLOW 09/05/17 15:09 Urine Clarity CLOUDY (CLEAR) H 09/05/17 15:09 Urine pH 7.5 (4.6 - 8.0) 09/05/17 15:09 Ur Specific [place] 1.010 (1.005-1.030) 09/05/17 15:09 Urine Protein NEGATIVE mg/dL (NEGATIVE) 09/05/17 15:09 Urine Glucose (UA) NEGATIVE mg/dL (NEGATIVE) 09/05/17 15:09 Urine Ketones NEGATIVE mg/dL (NEGATIVE) 09/05/17 15:09 Urine Blood MODERATE (NEGATIVE) H 09/05/17 15:09 Urine Nitrate POSITIVE (NEGATIVE) H 09/05/17 15:09 Urine Bilirubin NEGATIVE (NEGATIVE) 09/05/17 15:09 Urine Urobilinogen 0.2 E.U./dL (0.2 - 1.0) 09/05/17 15:09 Ur Leukocyte Esterase LARGE (NEGATIVE) H 09/05/17 15:09 Urine RBC 5-10 /hpf (0-5) H 09/05/17 15:09 Urine WBC 50-100 /hpf (0-5) H 09/05/17 15:09 Ur Epithelial Cells FEW /lpf (FEW) 09/05/17 15:09 Urine Bacteria MANY /hpf (NONE SEEN) H 09/05/17 15:09 RPR NONREACTIVE (NONREACTIVE) 09/05/17 14:38 - Physical Exam Vitals and I&O: Vital Signs Temp 97.6 F 09/21/17 06:56 Pulse 78 09/21/17 10:32 Resp 16 09/21/17 10:32 BP 106/59 09/21/17 08:44 Pulse Ox 98 09/21/17 10:32 Intake & Output 09/20/17 09/21/17 09/21/17 18:59 06:59 18:59 Intake Total 1200 960 Balance 1200 960 Intake: Oral 1200 960 Other: # Voids 3 2 Active Medications: Current Medications Acetaminophen (Tylenol) 650 mg PO Q6H PRN PRN Reason: mild pain Stop: 11/04/17 20:39 Last Admin: 09/19/17 13:54 Dose: 650 mg Al Hydrox/Mg Hydrox/Simethicone (Maalox) 30 ml PO Q6HR PRN PRN Reason: Upset Stomach / Indigestion Stop: 11/04/17 20:39 Albuterol/Ipratropium (Duoneb Neb) 3 ml HHN [id number] GOPAL Stop: 11/05/17 06:59 Last Admin: 09/21/17 10:29 Dose: 3 ml Artificial Tears (Artificial Tears Ophth Soln) 1 drop EACH EYE DAILY [facility] Stop: 11/05/17 08:59 Last Admin: 09/20/17 08:53 Dose: 1 drop Aspirin (Aspirin Chewable) 81 mg PO DAILY [facility] Stop: 11/05/17 08:59 Last Admin: 09/21/17 08:44 Dose: 81 mg Atorvastatin Calcium (Lipitor) 20 mg PO HS [facility]; Protocol Stop: 11/05/17 20:59 Last Admin: 09/20/17 22:06 Dose: 20 mg Bisacodyl (Dulcolax 10 Mg Supp) 10 mg RC DAILY PRN PRN Reason: no bm x3 days Stop: 11/04/17 20:39 Carvedilol (Coreg) 3.125 mg PO BID [facility] Stop: 11/05/17 08:59 Last Admin: 09/21/17 08:43 Dose: 3.125 mg Clotrimazole (Lotrimin 1% Cream) 1 appl TP DAILY [facility] Stop: 11/05/17 08:59 Last Admin: 09/20/17 09:39 Dose: 1 appl Diphenhydramine HCl (Benadryl) 25 mg PO Q6H PRN PRN Reason: Itching Stop: 11/04/17 20:39 Docusate Sodium (Colace) 250 mg PO BID [facility] Stop: 11/05/17 08:59 Last Admin: 09/21/17 08:44 Dose: 250 mg Escitalopram Oxalate (Lexapro) 20 mg PO HS [facility]; Protocol Stop: 11/05/17 20:59 Last Admin: 09/20/17 22:08 Dose: 20 mg Famotidine (Pepcid) 40 mg PO DAILY [facility] Stop: 11/05/17 08:59 Last Admin: 09/21/17 08:42 Dose: 40 mg Fentanyl (Duragesic 75 Mcg/Hr Tdm Patch) 1 patch TD Q72HR [facility]; Protocol Stop: 11/05/17 08:59 Last Admin: 09/18/17 09:15 Dose: 1 patch Ferrous Sulfate (Iron) 325 mg PO DAILY [facility] Stop: 11/05/17 08:59 Last Admin: 09/21/17 08:43 Dose: 325 mg Furosemide (Lasix) 20 mg PO BID [facility] Stop: 11/05/17 08:59 Last Admin: 09/21/17 08:44 Dose: 20 mg Ketotifen Fumarate (Zaditor 0.025% Ophth Soln) 1 drop EACH EYE DAILY [facility] Stop: 11/05/17 08:59 Last Admin: 09/20/17 08:53 Dose: 1 drop Lactobacillus Rhamnosus (Culturelle 15b) 1 each PO DAILY [facility] Stop: 11/05/17 08:59 Last Admin: 09/21/17 08:44 Dose: 1 each Lorazepam (Ativan) 0.5 mg PO BID PRN; Protocol PRN Reason: Anxiety Stop: 11/04/17 20:39 Last Admin: 09/14/17 22:01 Dose: 0.5 mg Mupirocin (Bactroban Oint) 1 appl NS BID [facility] Stop: 11/06/17 08:59 Last Admin: 09/20/17 17:27 Dose: 1 appl Ondansetron HCl (Zofran Odt) 4 mg PO Q12H PRN PRN Reason: Nausea / Vomiting Stop: 11/04/17 20:39 Last Admin: 09/15/17 17:53 Dose: 4 mg Risperidone (Risperdal) 0.25 mg PO DAILY [facility]; Protocol Stop: 11/18/17 08:59 Last Admin: 09/21/17 08:44 Dose: 0.25 mg Risperidone (Risperdal) 0.5 mg PO HS [facility]; Protocol Stop: 11/18/17 20:59 Last Admin: 09/20/17 22:07 Dose: 0.5 mg Sodium Chloride ([place] Nasal [place]) 1 spr NS Q12HR [facility] Stop: 11/04/17 20:59 Last Admin: 09/20/17 22:07 Dose: 1 spr Sodium Phosphate (Fleet Enema) 135 ml RC DAILY PRN PRN Reason: If Dulcolax ineffective Stop: 11/04/17 20:39 Trazodone HCl (Desyrel) 50 mg PO HS [facility]; Protocol Stop: 11/04/17 20:59 Last Admin: 09/20/17 22:07 Dose: 50 mg Zolpidem Tartrate (Ambien) 5 mg PO HS PRN PRN Reason: Insomnia Stop: 11/04/17 20:59 Last Admin: 09/20/17 22:07 Dose: 5 mg General: demented HEENT: NC/AT, PERRLA, EOMI, anicteric sclerae, throat clear Neck: Supple, No JVD, No thyromegaly, +2 carotid pulse wo bruit, No LAD Lungs: CTAB Cardiovascular: RRR, Normal S1, Normal S2, without murmur Abdomen: soft, non-tender, non-distended Neurological: no change Internal Medicine Assmt/Plan - Assessment Assessment: 1.HTN. 2.HYPERLIPIDEMIA. 3.DEMENTIA. - Plan Plan: CONTINUE ON CURRENT MEDICATION AND DIET. Nutritional Asmnt/Malnutr-PDOC - Dietary Evaluation Malnutrition Findings (Please click <Entered> for more info): Nutritional Asmnt/Malnutrition Start: 09/09/17 15: 56 Text: Status: Complete Freq: Protocol: Document 09/09/17 15:56 RADHA (Rec: 09/09/17 16:10 RADHA [email or web address]) Nutritional Asmnt/Malnutrition Patient General Information Nutritional Screening Low Risk Diagnosis depression Pertinent Medical Hx/Surgical Hx hyperlipidemia, HTn, DJD, dementia, psychosis Subjective Information Pt seen in bed having lunch at time of visit. Pt complained of month source and not able to put on denture. Pt only can eat the soup, pears, dinner roll and veggies. Offered other food, pt refused and stated she was not hungry. PO intake 25-50% over the past 2 days. Usually was 50-100%. Pt is on linezolid noted, not appropriate for nutrition education of food and drug interaction d/t cognition status at this time. Current Diet Order/ Nutrition Support regular Pertinent Medications colace, iron, lasix, culturelle Pertinent Labs 09/05 Na 134, K 3.3, Cl 93, BUN 6, Cr 0.4, glucose 102, A1c 4 .4 Nutritional Hx/Data Height 1.57 m Height (Calculated Centimeters) 157.5 Current Weight (lbs) 98.883 kg Weight (Calculated Kilograms) 98.9 Weight (Calculated Grams) 80082.1 [place] Body Weight 110 Body Mass Index (BMI) 39.9 Weight Status Obese GI Symptoms GI Symptoms None Last BM no BM on 09/06 Skin Integrity/Comment: Mark 17 Current %PO Poor (25-49%) Estimated Nutritional Goals BEE in Kcals: Adj wt of IBW Calories/Kcals/Kg 25-30 Kcals Calculated 2874-3167 Protein: Adj wt of IBW Protein g/k.8-1 Protein Calculated 50-62 Fluid: ml 1550-1860ml (1ml/kcal) Nutritional Problem 1. Problem Problem inadequate food intake Etiology chowing difficulty without denture d/t month sour Signs/Symptoms: PO intake 25-50% Malnutrition Alert Is there a minimum of two criteria No selected? Query Text:Check all the applicable criteria. A minimum of two criteria are recommended for diagnosis of either severe or non-severe malnutrition. Malnutrition Related to Morbid Obesity Malnutrition related to morbid obesity No Intervention/Recommendation Comments 1. Spoke wtih RN Aroldo, keep monitor diet tolerance. If pt not able to use denture and not tolerate diet, consider requestion alternatives. 2. Monitor PO intake, wt, labs and skin integrity 3. F/U as moderate risk in 3-5 days, 09/12-09/14, PO check Expected Outcomes/Goals Expected Outcomes/Goals 1. PO intake to meet at least 75% of nutritional needs. 2. Wt stability, skin to remain intact, labs to approach WNL.
[2017-09-21] MEDS: fentaNYL 75 mcg/hr Tdm Patch TD SCH (13:53)
--- NOTE | 2017-09-21 18:36 | Progress Notes ---
DATE: 09/21/[address] Mckenzie. Case was discussed with staff of the patient and reviewed records. The patient is more alert now. She is one long case ____ a few days covering for Dr. Mckenzie. She is withdrawn, isolated in her bed. She is still forgetful. Continues to have episodes of agitation and irritability. She has been compliant with the medication with no side effects, no sedation, no nausea and she is on Lexapro 20 mg a day and Risperdal 0.25 mg daily that was added ____ 0.25 mg in the morning and 0.5 mg at bedtime and we will continue to work with the patient in group therapy, milieu therapy, and adjust the medications as needed. JOB# [id number]
[2017-09-21] MEDS: Atorvastatin Calcium 10 MG TAB PO SCH (21:17)
--- NOTE | 2017-09-22 02:49 | Progress Notes ---
DATE: 09/20/2017 SUBJECTIVE: Chart reviewed and the patient interviewed. Also discussed the patient's condition with the staff and reviewed records and labs. The patient is still demanding and is still agitated and in irritable mood. The patient also is still paranoid and is still easily agitated. The patient also is guarded and she is isolative and in a depressed mood. Otherwise, the patient is compliant with taking her medications. The patient denies any side effects of medications. ASSESSMENT: The patient is still depressed and psychotic. TREATMENT PLAN: Continue monitoring her behavior and her condition closely. Also, continue adjusting psychotropic medications and work on her impulse control problem. Also, work on her ineffective coping. JOB# [id number]
[2017-09-22] MEDS: Albuterol/Ipratropium Neb 3 ML AERS HHN SCH ×4 (06:32→19:18)
[2017-09-22] MEDS: Lactobacillus Rhamnosus GG 15 Billion CFU CAP.SPRINK PO SCH (09:17)
[2017-09-22] MEDS: Ferrous Sulfate 325 MG TAB PO SCH (09:18)
[2017-09-22] MEDS: Polyvinyl Alcohol Ophth Soln 15 mL Bottle EACH EYE SCH (09:18)
[2017-09-22] MEDS: Aspirin 81mg Chewable Tab PO SCH (09:18)
[2017-09-22] MEDS: Saline 0.65% Nasal Spray NS SCH ×2 (09:19→20:47)
--- NOTE | 2017-09-22 14:38 | Internal Medicine Prog Note ---
Internal Medicine Subjective - Subjective Service Date: 09/22/17 Patient seen and examined:: with staff (SHE FEELS BETTER) Patient is:: awake, verbal, in bed, talking, confused Per staff patient has:: no adverse event Internal Medicine Objective - Results Result Diagrams: 09/05/17 14:38 09/05/17 14:38 Recent Labs: Laboratory Last Values WBC 9.3 Th/cmm (4.8-10.8) 09/05/17 14:38 RBC 3.21 Mil/cmm (3.80-5.20) L 09/05/17 14:38 Hgb 9.2 gm/dL (12-16) L 09/05/17 14:38 Hct 28.1 % (41.0-60) L 09/05/17 14:38 MCV 87.6 fl (81-100) 09/05/17 14:38 MCH 28.8 pg (27.0-31.0) 09/05/17 14:38 MCHC Differential 32.9 pg (28.0-36.0) 09/05/17 14:38 RDW 15.0 % (11.5-20.0) 09/05/17 14:38 Plt Count 251 Th/cmm (150-400) 09/05/17 14:38 MPV 8.7 fl 09/05/17 14:38 Neutrophils % 69.5 % (40.0-80.0) 09/05/17 14:38 Lymphocytes % 23.7 % (20.0-50.0) 09/05/17 14:38 Monocytes % 5.0 % (2.0-10.0) 09/05/17 14:38 Eosinophils % 1.8 % (0.0-5.0) 09/05/17 14:38 Basophils % 0.0 % (0.0-2.0) 09/05/17 14:38 Sodium 134 mEq/L (136-145) L 09/05/17 14:38 Potassium 3.3 mEq/L (3.5-5.1) L 09/05/17 14:38 Chloride 93 mEq/L (98-107) L 09/05/17 14:38 Carbon Dioxide 35.7 mEq/L (21.0-31.0) H 09/05/17 14:38 Anion Gap 8.6 (7.0-16.0) 09/05/17 14:38 BUN 6 mg/dL (7-25) L 09/05/17 14:38 Creatinine 0.4 mg/dL (0.6-1.2) L 09/05/17 14:38 Est GFR ( Amer) TNP 09/05/17 14:38 Est GFR (Non-Af Amer) TNP 09/05/17 14:38 BUN/Creatinine Ratio 15.0 09/05/17 14:38 Glucose 102 mg/dL (70-105) 09/05/17 14:38 POC Glucose 292 MG/DL (70 - 105) H 09/19/17 12:39 Hemoglobin A1c % 4.4 % (4.0-6.0) 09/05/17 14:38 Calcium 9.2 mg/dL (8.6-10.3) 09/05/17 14:38 Total Bilirubin 0.4 mg/dL (0.3-1.0) 09/05/17 14:38 AST 12 U/L (13-39) L 09/05/17 14:38 ALT 4 U/L (7-52) L 09/05/17 14:38 Alkaline Phosphatase 97 U/L (34-104) 09/05/17 14:38 Total Protein 5.9 gm/dL (6.0-8.3) L 09/05/17 14:38 Albumin 3.1 gm/dL (3.7-5.3) L 09/05/17 14:38 Triglycerides 73 mg/dL (<150) 09/05/17 14:38 Cholesterol 132 mg/dL (<200) 09/05/17 14:38 LDL Cholesterol Direct 70 mg/dL (75-193) L 09/05/17 14:38 HDL Cholesterol 40 mg/dL (23-92) 09/05/17 14:38 TSH 0.60 uIU/ml (0.34-5.60) 09/05/17 14:38 Urine Source CATH 09/05/17 15:09 Urine Color YELLOW 09/05/17 15:09 Urine Clarity CLOUDY (CLEAR) H 09/05/17 15:09 Urine pH 7.5 (4.6 - 8.0) 09/05/17 15:09 Ur Specific [place] 1.010 (1.005-1.030) 09/05/17 15:09 Urine Protein NEGATIVE mg/dL (NEGATIVE) 09/05/17 15:09 Urine Glucose (UA) NEGATIVE mg/dL (NEGATIVE) 09/05/17 15:09 Urine Ketones NEGATIVE mg/dL (NEGATIVE) 09/05/17 15:09 Urine Blood MODERATE (NEGATIVE) H 09/05/17 15:09 Urine Nitrate POSITIVE (NEGATIVE) H 09/05/17 15:09 Urine Bilirubin NEGATIVE (NEGATIVE) 09/05/17 15:09 Urine Urobilinogen 0.2 E.U./dL (0.2 - 1.0) 09/05/17 15:09 Ur Leukocyte Esterase LARGE (NEGATIVE) H 09/05/17 15:09 Urine RBC 5-10 /hpf (0-5) H 09/05/17 15:09 Urine WBC 50-100 /hpf (0-5) H 09/05/17 15:09 Ur Epithelial Cells FEW /lpf (FEW) 09/05/17 15:09 Urine Bacteria MANY /hpf (NONE SEEN) H 09/05/17 15:09 RPR NONREACTIVE (NONREACTIVE) 09/05/17 14:38 - Physical Exam Vitals and I&O: Vital Signs Temp 98.2 F 09/22/17 06:37 Pulse 75 09/22/17 14:33 Resp 18 09/22/17 14:33 BP 106/61 09/22/17 09:17 Pulse Ox 98 09/22/17 14:33 Intake & Output 09/21/17 09/22/17 09/22/17 18:59 06:59 18:59 Intake Total 1400 120 Balance 1400 120 Intake: Oral 1400 120 Other: # Voids 4 3 # Bowel Movements 0 Active Medications: Current Medications Acetaminophen (Tylenol) 650 mg PO Q6H PRN PRN Reason: mild pain Stop: 11/04/17 20:39 Last Admin: 09/22/17 01:07 Dose: 650 mg Al Hydrox/Mg Hydrox/Simethicone (Maalox) 30 ml PO Q6HR PRN PRN Reason: Upset Stomach / Indigestion Stop: 11/04/17 20:39 Albuterol/Ipratropium (Duoneb Neb) 3 ml HHN [id number] [facility] Stop: 11/05/17 06:59 Last Admin: 09/22/17 14:31 Dose: 3 ml Artificial Tears (Artificial Tears Ophth Soln) 1 drop EACH EYE DAILY [facility] Stop: 11/05/17 08:59 Last Admin: 09/22/17 09:18 Dose: 1 drop Aspirin (Aspirin Chewable) 81 mg PO DAILY [facility] Stop: 11/05/17 08:59 Last Admin: 09/22/17 09:18 Dose: 81 mg Atorvastatin Calcium (Lipitor) 20 mg PO HS [facility]; Protocol Stop: 11/05/17 20:59 Last Admin: 09/21/17 21:17 Dose: 20 mg Bisacodyl (Dulcolax 10 Mg Supp) 10 mg RC DAILY PRN PRN Reason: no bm x3 days Stop: 11/04/17 20:39 Carvedilol (Coreg) 3.125 mg PO BID [facility] Stop: 11/05/17 08:59 Last Admin: 09/22/17 09:17 Dose: 3.125 mg Clotrimazole (Lotrimin 1% Cream) 1 appl TP DAILY [facility] Stop: 11/05/17 08:59 Last Admin: 09/22/17 09:19 Dose: 1 appl Diphenhydramine HCl (Benadryl) 25 mg PO Q6H PRN PRN Reason: Itching Stop: 11/04/17 20:39 Last Admin: 09/21/17 21:19 Dose: 25 mg Docusate Sodium (Colace) 250 mg PO BID [facility] Stop: 11/05/17 08:59 Last Admin: 09/22/17 09:17 Dose: 250 mg Escitalopram Oxalate (Lexapro) 20 mg PO HS [facility]; Protocol Stop: 11/05/17 20:59 Last Admin: 09/21/17 21:17 Dose: 20 mg Famotidine (Pepcid) 40 mg PO DAILY [facility] Stop: 11/05/17 08:59 Last Admin: 09/22/17 09:17 Dose: 40 mg Fentanyl (Duragesic 75 Mcg/Hr Tdm Patch) 1 patch TD Q72HR [facility]; Protocol Stop: 11/05/17 08:59 Last Admin: 09/21/17 13:53 Dose: 1 patch Ferrous Sulfate (Iron) 325 mg PO DAILY [facility] Stop: 11/05/17 08:59 Last Admin: 09/22/17 09:18 Dose: 325 mg Furosemide (Lasix) 20 mg PO BID [facility] Stop: 11/05/17 08:59 Last Admin: 09/22/17 09:17 Dose: 20 mg Ketotifen Fumarate (Zaditor 0.025% Ophth Soln) 1 drop EACH EYE DAILY [facility] Stop: 11/05/17 08:59 Last Admin: 09/22/17 09:19 Dose: 1 drop Lactobacillus Rhamnosus (Culturelle 15b) 1 each PO DAILY [facility] Stop: 11/05/17 08:59 Last Admin: 09/22/17 09:17 Dose: 1 each Lorazepam (Ativan) 0.5 mg PO BID PRN; Protocol PRN Reason: Anxiety Stop: 11/04/17 20:39 Last Admin: 09/14/17 22:01 Dose: 0.5 mg Mupirocin (Bactroban Oint) 1 appl NS BID [facility] Stop: 11/06/17 08:59 Last Admin: 09/22/17 09:18 Dose: 1 appl Ondansetron HCl (Zofran Odt) 4 mg PO Q12H PRN PRN Reason: Nausea / Vomiting Stop: 11/04/17 20:39 Last Admin: 09/15/17 17:53 Dose: 4 mg Risperidone (Risperdal) 0.25 mg PO DAILY [facility]; Protocol Stop: 11/18/17 08:59 Last Admin: 09/22/17 09:18 Dose: 0.25 mg Risperidone (Risperdal) 0.5 mg PO HS [facility]; Protocol Stop: 11/18/17 20:59 Last Admin: 09/21/17 21:17 Dose: 0.5 mg Sodium Chloride ([place] Nasal [place]) 1 spr NS Q12HR [facility] Stop: 11/04/17 20:59 Last Admin: 09/22/17 09:19 Dose: 1 spr Sodium Phosphate (Fleet Enema) 135 ml RC DAILY PRN PRN Reason: If Dulcolax ineffective Stop: 11/04/17 20:39 Trazodone HCl (Desyrel) 50 mg PO HS [facility]; Protocol Stop: 11/04/17 20:59 Last Admin: 09/21/17 21:17 Dose: 50 mg Zolpidem Tartrate (Ambien) 5 mg PO HS PRN PRN Reason: Insomnia Stop: 11/04/17 20:59 Last Admin: 09/22/17 01:07 Dose: 5 mg General: demented HEENT: NC/AT, PERRLA, EOMI, anicteric sclerae, throat clear Neck: Supple, No JVD, No thyromegaly, +2 carotid pulse wo bruit, No LAD Lungs: CTAB Cardiovascular: RRR, Normal S1, Normal S2, without murmur Abdomen: soft, non-tender, non-distended Neurological: no change Internal Medicine Assmt/Plan - Assessment Assessment: 1.HTN. 2.HYPERLIPIDEMIA. 3.DEMENTIA. - Plan Plan: CONTINUE ON CURRENT MEDICATION AND DIET. Nutritional Asmnt/Malnutr-PDOC - Dietary Evaluation Malnutrition Findings (Please click <Entered> for more info): Nutritional Asmnt/Malnutrition Start: 09/09/17 15: 56 Text: Status: Complete Freq: Protocol: Document 09/09/17 15:56 LCHENG (Rec: 09/09/17 16:10 LCHENG [email or web address]) Nutritional Asmnt/Malnutrition Patient General Information Nutritional Screening Low Risk Diagnosis depression Pertinent Medical Hx/Surgical Hx hyperlipidemia, HTn, DJD, dementia, psychosis Subjective Information Pt seen in bed having lunch at time of visit. Pt complained of month source and not able to put on denture. Pt only can eat the soup, pears, dinner roll and veggies. Offered other food, pt refused and stated she was not hungry. PO intake 25-50% over the past 2 days. Usually was 50-100%. Pt is on linezolid noted, not appropriate for nutrition education of food and drug interaction d/t cognition status at this time. Current Diet Order/ Nutrition Support regular Pertinent Medications colace, iron, lasix, culturelle Pertinent Labs 09/05 Na 134, K 3.3, Cl 93, BUN 6, Cr 0.4, glucose 102, A1c 4 .4 Nutritional Hx/Data Height 1.57 m Height (Calculated Centimeters) 157.5 Current Weight (lbs) 98.883 kg Weight (Calculated Kilograms) 98.9 Weight (Calculated Grams) 67722.1 [place] Body Weight 110 Body Mass Index (BMI) 39.9 Weight Status Obese GI Symptoms GI Symptoms None Last BM no BM on 09/06 Skin Integrity/Comment: [place] Current %PO Poor (25-49%) Estimated Nutritional Goals BEE in Kcals: Adj wt of IBW Calories/Kcals/Kg 25-30 Kcals Calculated 4430-8568 Protein: Adj wt of IBW Protein g/k.8-1 Protein Calculated 50-62 Fluid: ml 1550-1860ml (1ml/kcal) Nutritional Problem 1. Problem Problem inadequate food intake Etiology chowing difficulty without denture d/t month sour Signs/Symptoms: PO intake 25-50% Malnutrition Alert Is there a minimum of two criteria No selected? Query Text:Check all the applicable criteria. A minimum of two criteria are recommended for diagnosis of either severe or non-severe malnutrition. Malnutrition Related to Morbid Obesity Malnutrition related to morbid obesity No Intervention/Recommendation Comments 1. Spoke wtih RN Aroldo, keep monitor diet tolerance. If pt not able to use denture and not tolerate diet, consider requestion alternatives. 2. Monitor PO intake, wt, labs and skin integrity 3. F/U as moderate risk in 3-5 days, 09/12-09/14, PO check Expected Outcomes/Goals Expected Outcomes/Goals 1. PO intake to meet at least 75% of nutritional needs. 2. Wt stability, skin to remain intact, labs to approach WNL.
--- NOTE | 2017-09-22 20:02 | Progress Notes ---
DATE: 09/22/2017 The patient continues to have poor insight, unable to make a safe plan for self-care, unpredictable, impulsive. She is a high fall risk. She is bedridden. At this point, the medications reviewed. No side effects with the medication, no sedation, no nausea, no extrapyramidal symptoms. We will continue to work with the patient in group therapy, milieu therapy, adjust medication as needed. [facility]# [id number]
[2017-09-22] MEDS: Atorvastatin Calcium 10 MG TAB PO SCH (20:45)
[2017-09-23] MEDS: Albuterol/Ipratropium Neb 3 ML AERS HHN SCH ×4 (06:33→18:51)
--- NOTE | 2017-09-23 07:01 | Progress Notes ---
DATE: SUBJECTIVE: Chart reviewed and the patient interviewed. Also discussed the patient's condition with the staff and reviewed records and labs. The patient is still confused and still has occasional outbursts. She also is guarded and she is forgetful and needs lots of redirections. Her affect is flat and mood is labile. Otherwise, the patient is compliant with taking her medications with no side effects of medications. ASSESSMENT: The patient is still psychotic and is still confused. TREATMENT PLAN: Continue to monitor her behavior and her condition closely and continue to work on her anger and adjusting psychotropic medications. JOB# [id number]
[2017-09-23] MEDS: Ferrous Sulfate 325 MG TAB PO SCH (09:22)
[2017-09-23] MEDS: Lactobacillus Rhamnosus GG 15 Billion CFU CAP.SPRINK PO SCH (09:22)
[2017-09-23] MEDS: Aspirin 81mg Chewable Tab PO SCH (09:23)
[2017-09-23] MEDS: Polyvinyl Alcohol Ophth Soln 15 mL Bottle EACH EYE SCH (09:26)
[2017-09-23] MEDS: Saline 0.65% Nasal Spray NS SCH ×2 (09:26→20:55)
--- NOTE | 2017-09-23 18:18 | Internal Medicine Prog Note ---
Internal Medicine Subjective - Subjective Service Date: 09/23/17 Patient seen and examined:: with staff Patient is:: awake, verbal, in bed, talking, confused Per staff patient has:: no adverse event Internal Medicine Objective - Results Result Diagrams: 09/05/17 14:38 09/05/17 14:38 Recent Labs: Laboratory Last Values WBC 9.3 Th/cmm (4.8-10.8) 09/05/17 14:38 RBC 3.21 Mil/cmm (3.80-5.20) L 09/05/17 14:38 Hgb 9.2 gm/dL (12-16) L 09/05/17 14:38 Hct 28.1 % (41.0-60) L 09/05/17 14:38 MCV 87.6 fl (81-100) 09/05/17 14:38 MCH 28.8 pg (27.0-31.0) 09/05/17 14:38 MCHC Differential 32.9 pg (28.0-36.0) 09/05/17 14:38 RDW 15.0 % (11.5-20.0) 09/05/17 14:38 Plt Count 251 Th/cmm (150-400) 09/05/17 14:38 MPV 8.7 fl 09/05/17 14:38 Neutrophils % 69.5 % (40.0-80.0) 09/05/17 14:38 Lymphocytes % 23.7 % (20.0-50.0) 09/05/17 14:38 Monocytes % 5.0 % (2.0-10.0) 09/05/17 14:38 Eosinophils % 1.8 % (0.0-5.0) 09/05/17 14:38 Basophils % 0.0 % (0.0-2.0) 09/05/17 14:38 Sodium 134 mEq/L (136-145) L 09/05/17 14:38 Potassium 3.3 mEq/L (3.5-5.1) L 09/05/17 14:38 Chloride 93 mEq/L (98-107) L 09/05/17 14:38 Carbon Dioxide 35.7 mEq/L (21.0-31.0) H 09/05/17 14:38 Anion Gap 8.6 (7.0-16.0) 09/05/17 14:38 BUN 6 mg/dL (7-25) L 09/05/17 14:38 Creatinine 0.4 mg/dL (0.6-1.2) L 09/05/17 14:38 Est GFR ( Amer) TNP 09/05/17 14:38 Est GFR (Non-Af Amer) TNP 09/05/17 14:38 BUN/Creatinine Ratio 15.0 09/05/17 14:38 Glucose 102 mg/dL (70-105) 09/05/17 14:38 POC Glucose 292 MG/DL (70 - 105) H 09/19/17 12:39 Hemoglobin A1c % 4.4 % (4.0-6.0) 09/05/17 14:38 Calcium 9.2 mg/dL (8.6-10.3) 09/05/17 14:38 Total Bilirubin 0.4 mg/dL (0.3-1.0) 09/05/17 14:38 AST 12 U/L (13-39) L 09/05/17 14:38 ALT 4 U/L (7-52) L 09/05/17 14:38 Alkaline Phosphatase 97 U/L (34-104) 09/05/17 14:38 Total Protein 5.9 gm/dL (6.0-8.3) L 09/05/17 14:38 Albumin 3.1 gm/dL (3.7-5.3) L 09/05/17 14:38 Triglycerides 73 mg/dL (<150) 09/05/17 14:38 Cholesterol 132 mg/dL (<200) 09/05/17 14:38 LDL Cholesterol Direct 70 mg/dL (75-193) L 09/05/17 14:38 HDL Cholesterol 40 mg/dL (23-92) 09/05/17 14:38 TSH 0.60 uIU/ml (0.34-5.60) 09/05/17 14:38 Urine Source CATH 09/05/17 15:09 Urine Color YELLOW 09/05/17 15:09 Urine Clarity CLOUDY (CLEAR) H 09/05/17 15:09 Urine pH 7.5 (4.6 - 8.0) 09/05/17 15:09 Ur Specific Anton 1.010 (1.005-1.030) 09/05/17 15:09 Urine Protein NEGATIVE mg/dL (NEGATIVE) 09/05/17 15:09 Urine Glucose (UA) NEGATIVE mg/dL (NEGATIVE) 09/05/17 15:09 Urine Ketones NEGATIVE mg/dL (NEGATIVE) 09/05/17 15:09 Urine Blood MODERATE (NEGATIVE) H 09/05/17 15:09 Urine Nitrate POSITIVE (NEGATIVE) H 09/05/17 15:09 Urine Bilirubin NEGATIVE (NEGATIVE) 09/05/17 15:09 Urine Urobilinogen 0.2 E.U./dL (0.2 - 1.0) 09/05/17 15:09 Ur Leukocyte Esterase LARGE (NEGATIVE) H 09/05/17 15:09 Urine RBC 5-10 /hpf (0-5) H 09/05/17 15:09 Urine WBC 50-100 /hpf (0-5) H 09/05/17 15:09 Ur Epithelial Cells FEW /lpf (FEW) 09/05/17 15:09 Urine Bacteria MANY /hpf (NONE SEEN) H 09/05/17 15:09 RPR NONREACTIVE (NONREACTIVE) 09/05/17 14:38 - Physical Exam Vitals and I&O: Vital Signs Temp 98.0 F 09/23/17 14:58 Pulse 76 09/23/17 16:56 Resp 20 09/23/17 14:58 BP 99/58 09/23/17 16:56 Pulse Ox 97 09/23/17 14:58 Intake & Output 09/22/17 09/23/17 09/23/17 18:59 06:59 18:59 Intake Total 2081 682 [id number] Balance 1670 983 0825 Intake: Oral 2050 259 1413 Other: # Voids 4 3 4 # Bowel Movements 1 0 Active Medications: Current Medications Acetaminophen (Tylenol) 650 mg PO Q6H PRN PRN Reason: mild pain Stop: 11/04/17 20:39 Last Admin: 09/22/17 01:07 Dose: 650 mg Al Hydrox/Mg Hydrox/Simethicone (Maalox) 30 ml PO Q6HR PRN PRN Reason: Upset Stomach / Indigestion Stop: 11/04/17 20:39 Albuterol/Ipratropium (Duoneb Neb) 3 ml HHN [id number] GOPAL Stop: 11/05/17 06:59 Last Admin: 09/23/17 14:35 Dose: 3 ml Artificial Tears (Artificial Tears Ophth Soln) 1 drop EACH EYE DAILY GOPAL Stop: 11/05/17 08:59 Last Admin: 09/23/17 09:26 Dose: 1 drop Aspirin (Aspirin Chewable) 81 mg PO DAILY GOPAL Stop: 11/05/17 08:59 Last Admin: 09/23/17 09:23 Dose: 81 mg Atorvastatin Calcium (Lipitor) 20 mg PO HS GOPAL; Protocol Stop: 11/05/17 20:59 Last Admin: 09/22/17 20:45 Dose: 20 mg Bisacodyl (Dulcolax 10 Mg Supp) 10 mg RC DAILY PRN PRN Reason: no bm x3 days Stop: 11/04/17 20:39 Carvedilol (Coreg) 3.125 mg PO BID REPLACED BY [facility] Stop: 11/05/17 08:59 Last Admin: 09/23/17 16:56 Dose: Not Given Clotrimazole (Lotrimin 1% Cream) 1 appl TP DAILY GOPAL Stop: 11/05/17 08:59 Last Admin: 09/23/17 09:26 Dose: 1 appl Diphenhydramine HCl (Benadryl) 25 mg PO Q6H PRN PRN Reason: Itching Stop: 11/04/17 20:39 Last Admin: 09/21/17 21:19 Dose: 25 mg Docusate Sodium (Colace) 250 mg PO BID REPLACED BY [facility] Stop: 11/05/17 08:59 Last Admin: 09/23/17 16:56 Dose: 250 mg Escitalopram Oxalate (Lexapro) 20 mg PO HS GOPAL; Protocol Stop: 11/05/17 20:59 Last Admin: 09/22/17 20:48 Dose: 20 mg Famotidine (Pepcid) 40 mg PO DAILY GOPAL Stop: 11/05/17 08:59 Last Admin: 09/23/17 09:20 Dose: 40 mg Fentanyl (Duragesic 75 Mcg/Hr Tdm Patch) 1 patch TD Q72HR REPLACED BY [facility]; Protocol Stop: 11/05/17 08:59 Last Admin: 09/21/17 13:53 Dose: 1 patch Ferrous Sulfate (Iron) 325 mg PO DAILY GOPAL Stop: 11/05/17 08:59 Last Admin: 09/23/17 09:22 Dose: 325 mg Furosemide (Lasix) 20 mg PO BID GOPAL Stop: 11/05/17 08:59 Last Admin: 09/23/17 16:55 Dose: Not Given Ketotifen Fumarate (Zaditor 0.025% Ophth Soln) 1 drop EACH EYE DAILY GOPAL Stop: 11/05/17 08:59 Last Admin: 09/23/17 09:26 Dose: 1 drop Lactobacillus Rhamnosus (Culturelle 15b) 1 each PO DAILY GOPAL Stop: 11/05/17 08:59 Last Admin: 09/23/17 09:22 Dose: 1 each Lorazepam (Ativan) 0.5 mg PO BID PRN; Protocol PRN Reason: Anxiety Stop: 11/04/17 20:39 Last Admin: 09/22/17 20:49 Dose: 0.5 mg Mupirocin (Bactroban Oint) 1 appl NS BID GOPAL Stop: 11/06/17 08:59 Last Admin: 09/23/17 16:58 Dose: 1 appl Ondansetron HCl (Zofran Odt) 4 mg PO Q12H PRN PRN Reason: Nausea / Vomiting Stop: 11/04/17 20:39 Last Admin: 09/15/17 17:53 Dose: 4 mg Risperidone (Risperdal) 0.25 mg PO DAILY GOPAL; Protocol Stop: 11/18/17 08:59 Last Admin: 09/23/17 09:22 Dose: 0.25 mg Risperidone (Risperdal) 0.5 mg PO HS GOPAL; Protocol Stop: 11/18/17 20:59 Last Admin: 09/22/17 20:48 Dose: 0.5 mg Sodium Chloride ([place] Nasal [place]) 1 spr NS Q12HR GOPAL Stop: 11/04/17 20:59 Last Admin: 09/23/17 09:26 Dose: 1 spr Sodium Phosphate (Fleet Enema) 135 ml RC DAILY PRN PRN Reason: If Dulcolax ineffective Stop: 11/04/17 20:39 Trazodone HCl (Desyrel) 50 mg PO HS GOPAL; Protocol Stop: 11/04/17 20:59 Last Admin: 09/22/17 20:47 Dose: 50 mg Zolpidem Tartrate (Ambien) 5 mg PO HS PRN PRN Reason: Insomnia Stop: 11/04/17 20:59 Last Admin: 09/22/17 20:48 Dose: 5 mg General: demented HEENT: NC/AT, PERRLA, EOMI, anicteric sclerae, throat clear Neck: Supple, No JVD, No thyromegaly, +2 carotid pulse wo bruit, No LAD Lungs: CTAB Cardiovascular: RRR, Normal S1, Normal S2, without murmur Abdomen: soft, non-tender, non-distended Neurological: no change Internal Medicine Assmt/Plan - Assessment Assessment: 1.HTN. 2.HYPERLIPIDEMIA. 3.DEMENTIA. - Plan Plan: CONTINUE ON CURRENT MEDICATION AND DIET. Nutritional Asmnt/Malnutr-PDOC - Dietary Evaluation Malnutrition Findings (Please click <Entered> for more info): Nutritional Asmnt/Malnutrition Start: 09/09/17 15: 56 Text: Status: Complete Freq: Protocol: Document 09/09/17 15:56 LCHENG (Rec: 09/09/17 16:10 LCHENG [id number]) Nutritional Asmnt/Malnutrition Patient General Information Nutritional Screening Low Risk Diagnosis depression Pertinent Medical Hx/Surgical Hx hyperlipidemia, HTn, DJD, dementia, psychosis Subjective Information Pt seen in bed having lunch at time of visit. Pt complained of month source and not able to put on denture. Pt only can eat the soup, pears, dinner roll and veggies. Offered other food, pt refused and stated she was not hungry. PO intake 25-50% over the past 2 days. Usually was 50-100%. Pt is on linezolid noted, not appropriate for nutrition education of food and drug interaction d/t cognition status at this time. Current Diet Order/ Nutrition Support regular Pertinent Medications colace, iron, lasix, culturelle Pertinent Labs 09/05 Na 134, K 3.3, Cl 93, BUN 6, Cr 0.4, glucose 102, A1c 4 .4 Nutritional Hx/Data Height 1.57 m Height (Calculated Centimeters) 157.5 Current Weight (lbs) 98.883 kg Weight (Calculated Kilograms) 98.9 Weight (Calculated Grams) 99456.1 [place] Body Weight 110 Body Mass Index (BMI) 39.9 Weight Status Obese GI Symptoms GI Symptoms None Last BM no BM on 09/06 Skin Integrity/Comment: Mark Ladd Current %PO Poor (25-49%) Estimated Nutritional Goals BEE in Kcals: Adj wt of IBW Calories/Kcals/Kg 25-30 Kcals Calculated 4199-6450 Protein: Adj wt of IBW Protein g/k.8-1 Protein Calculated 50-62 Fluid: ml 1550-1860ml (1ml/kcal) Nutritional Problem 1. Problem Problem inadequate food intake Etiology chowing difficulty without denture d/t month sour Signs/Symptoms: PO intake 25-50% Malnutrition Alert Is there a minimum of two criteria No selected? Query Text:Check all the applicable criteria. A minimum of two criteria are recommended for diagnosis of either severe or non-severe malnutrition. Malnutrition Related to Morbid Obesity Malnutrition related to morbid obesity No Intervention/Recommendation Comments 1. Spoke wtih RN Aroldo, keep monitor diet tolerance. If pt not able to use denture and not tolerate diet, consider requestion alternatives. 2. Monitor PO intake, wt, labs and skin integrity 3. F/U as moderate risk in 3-5 days, 09/12-09/14, PO check Expected Outcomes/Goals Expected Outcomes/Goals 1. PO intake to meet at least 75% of nutritional needs. 2. Wt stability, skin to remain intact, labs to approach WNL.
[2017-09-23] MEDS: Atorvastatin Calcium 10 MG TAB PO SCH (20:56)
[2017-09-24] MEDS: Albuterol/Ipratropium Neb 3 ML AERS HHN SCH ×3 (07:01→14:19)
--- NOTE | 2017-09-24 07:16 | Progress Notes ---
DATE: SUBJECTIVE: Chart reviewed and the patient interviewed. Also discussed the patient's condition with the staff and reviewed records and labs. The patient is still demanding and she is still severely anxious. The patient also is still slightly confused and asking for help and yelling at staff to come to help her and when the staff approaches her, she asked them to leave. She also is still restless and she still gets angry outbursts. Otherwise, the patient is compliant with taking her medications with no side effects of medications. ASSESSMENT: The patient is still confused and agitated. TREATMENT PLAN: Continue to monitor her behavior closely and will continue to work on her behavioral issues. At the same time, working on discharge plans and placement issue and it seemed that patient so far has no place to go. JOB# [id number]
[2017-09-24] MEDS: Lactobacillus Rhamnosus GG 15 Billion CFU CAP.SPRINK PO SCH (09:04)
[2017-09-24] MEDS: Ferrous Sulfate 325 MG TAB PO SCH (09:05)
[2017-09-24] MEDS: Aspirin 81mg Chewable Tab PO SCH (09:06)
[2017-09-24] MEDS: fentaNYL 75 mcg/hr Tdm Patch TD SCH (09:06)
[2017-09-24] MEDS: Polyvinyl Alcohol Ophth Soln 15 mL Bottle EACH EYE SCH (09:10)
[2017-09-24] MEDS: Saline 0.65% Nasal Spray NS SCH (09:11)
--- NOTE | 2017-09-25 21:23 | Discharge Summary ---
DATE OF DISCHARGE: 09/24/2017 PATIENT'S AGE: 81. SEX: Female. PHYSICIAN: Pavel Mckenzie MD, MPH FINAL DIAGNOSES: PRIMARY DIAGNOSIS: Unspecified psychosis. SECONDARY DIAGNOSES: Dementia, moderate, with psychotic features. MEDICAL DIAGNOSIS: Chronic obstructive pulmonary disease. REASON FOR HOSPITALIZATION: The patient was admitted to the hospital from [facility] because of there is confusion and agitation and she was having difficulty following directions. The patient also was diagnosed with urinary tract infection that was resolved during hospitalization. HOSPITAL COURSE: The patient continued to be in angry and in irritable mood. She also was easily agitated. Also, at times it seemed that she was severely depressed. The patient also is having episodes of yelling and screaming and trying to get attention from staff. She also was withdrawn at times and did not want to be left alone. The patient was started on Abilify and the dose adjusted to 5-7 mg every day. The patient also was monitored closely by Dr. Sears for a urinary tract infection and for her condition. The patient also was given Lexapro and the dose adjusted to 20 mg every day. Gradually, the patient's affect was brighter. The patient was less agitated and less irritable. The patient also was not depressed and she was socializing more. The patient also was given Risperdal in a dose of 0.25 mg in the morning and 0.5 mg at bedtime. Also, she was given trazodone in a dose of 50 mg at bedtime. The patient was accepted back by [facility] and she returns there. After discharge, physical exam of the patient was monitored closely by Dr. Sears. She had no major medical issues while in the hospital. AFTER DISCHARGE PLANS: The patient discharged from the hospital to [facility] with plans for follow her up there. EXPECTED OUTCOME AFTER DISCHARGE: Fair, if the patient continued to take psychotropic medications and follow up with discharge plans. [facility]# [id number]
== END 2017-09-24 14:35 | DRG 885 ==
LOC: ER 13:39 → GERO2 17:34 → GERO 09-06 18:12
PROVIDERS: ADMIT Psychiatry & Neurology Psychiatry; ATTEND Psychiatry & Neurology Psychiatry
DX: F32.3 Major depressive disorder, single episode, severe with psychotic features (principal); N39.0 Urinary tract infection, site not specified; F03.91 Unspecified dementia, unspecified severity, with behavioral disturbance; J44.9 Chronic obstructive pulmonary disease, unspecified; I10 Essential (primary) hypertension; E78.5 Hyperlipidemia, unspecified; M19.90 Unspecified osteoarthritis, unspecified site; D64.9 Anemia, unspecified; E11.9 Type 2 diabetes mellitus without complications; E66.9 Obesity, unspecified; F41.9 Anxiety disorder, unspecified; E87.6 Hypokalemia; G89.29 Other chronic pain; Z68.39 Body mass index [BMI] 39.0-39.9, adult
CPT/HCPCS: 36415-UA; 70450-TC; 71045-TC; 71250-TC; 80048-TC; 80061-TC; 81001-TC; 82040-TC; 82247-TC; 82948-90; 83036-90; 84075-TC; 84155-TC; 84443-TC; 84450-TC; 84460-TC; 85025-TC; 86592-TC; 87086-90; 93005; 94640; 94760; Q0162; Z7610